=== PATIENT | female | born 1990 | race Caucasian/White ===

== ENCOUNTER → 2018-02-28 17:49 | Outpatient (CLI) | payer MEDICAID, SELFPAY ==
[2018-02-28 19:56] LABS: Chlamydia Trachomatis by PCR Negative (Negative); Neisserai gonorrhoeae by PCR Negative (Negative); Probe Check PASS; Sample Adequacy Control PASS; Specimen Processing Control PASS
[2018-03-08 08:17] LABS: HPV APTIMA, High Risk Negative (Negative); HPV Reflexed? YES, CHARGE PATIENT
== END ==
PROVIDERS: Visit Provider Obstetrics & Gynecology
DX: Z34.90 Encounter for supervision of normal pregnancy, unspecified, unspecified trimester (principal); Z12.4 Encounter for screening for malignant neoplasm of cervix
CPT/HCPCS: 87086; 87088; 87491; 87591; 87624; 88175; G0145

== ENCOUNTER → 2018-03-28 16:13 | Outpatient (CLI) | payer MEDICAID, SELFPAY ==
[2018-03-28 17:30] LABS: Absolute Lymphocyte Count 1.55 X10^3/ul (0.83-4.51); Absolute Neutrophil Count 6.4 X10^3/uL (2.0-7.7); Basophil# 0.04 X10^3/uL; Basophil% 0.4 % (0-1); Eosinophil# 0.47 X10^3/uL; Eosinophils% 5.2 % (0-5); Hematocrit 37.8 % (37-47); Hemoglobin 12.9 g/dl (12.0-15.0); Lymphocyte # 1.55 X10^3/ul (4.0); Lymphocyte % 17.2 % (19-41); Mean Corp Hgb Conc 34.1 g/gl (32-36); Mean Corpuscular Hgb 29.7 pg (27.0-32.0); Mean Corpuscular Volume 86.9 fL (81-99); Mean Platelet Vol. 11.8 fl (6.2-12.0); Monocyte% 5.5 % (0-10); Neutrophil # 6.41 X10^3/uL (2.7-7.7); Platelet Count 168 K/mm3 (150-450); RBC Distribution Width CV 13.2 % (11.6-14.6); RBC Distribution Width SD 40.7 fl (35.1-43.9); Red Blood Count 4.35 M/mm3 (4.2-5.4)
[2018-03-28 17:31] LABS: POSITIVE COUNT NO; POSITIVE DIFFERENTIAL NO; POSITIVE MORPHOLOGY NO
[2018-03-29 03:17] LABS: Rapid Plasmin Reagin (RPR) NONREACTIVE (NONREACTIVE)
[2018-03-29 08:57] LABS: HIV - WCH Non-Reactive (Nonreactive); Rubella IgG 232.1 IU/mL
[2018-04-01 12:19] LABS: HEPATITIS B SURFACE AG Negative (Negative)
== END ==
PROVIDERS: Family Provider Family Medicine; PCP Family Medicine; Visit Provider Obstetrics & Gynecology
DX: Z34.90 Encounter for supervision of normal pregnancy, unspecified, unspecified trimester (principal)
CPT/HCPCS: 36415; 85025; 86592; 86703; 86762; 86850; 86900; 87340

== ENCOUNTER → 2018-04-12 08:33 | Outpatient (CLI) | payer MEDICAID, SELFPAY ==
--- NOTE | 2018-04-12 08:37 | US_ITS ---
STUDY: SECOND AND THIRD TRIMESTER OBSTETRICAL ULTRASOUND REASON FOR EXAM: Female, 27 years old. Routine survey. LMP: November 30, 2017. TECHNIQUE: Transabdominal and Transvaginal PRIOR ULTRASOUND: None. FINDINGS: There is a single intrauterine fetus. The fetus is in a breech presentation. There is demonstrated cardiac activity with a heart rate of 143 bpm. There is a normal amniotic fluid volume. The amniotic fluid index (WILL) is within normal limits. The placenta is posterior and low lying but not previa in location. The distal portion of the placenta is 1.1 cm from the cervical os. There are Grade 0 placental changes. The cervix measures 3.3 cm in length. The bilateral adnexal regions are normal. BIOMETRY: BPD: 3.9 cm: 18 weeks, 0 days HC: 15.3 cm: 18 weeks, 3 days AC: 14.2 cm: 19 weeks, 4 days FL: 2.8 cm: 18 weeks, 5 days CI: 74% FL/BPD: 72% FL/HC: FL/AC: 20% HC/AC: 1.08 age by current US: 18 weeks, 5 days. DELMI by current US: September 08, 2018. Estimated weight: 270 grams, +/- 39 grams, 47 %. Age by LMP: 19 weeks, 0 days. DELMI by LMP: September 06, 2018. ANATOMY: Gender: Male Cranium: Normal lateral ventricles. Normal choroid plexus. Normal cerebellum. Normal cisterna magna. Normal face, nose and lips. Chest: Normal 4-chamber heart. Abdomen/Pelvis: Normal diaphragm. Normal stomach. Normal abdominal wall. Normal cord insertion. Normal 3 vessel cord. Normal kidneys. Normal bladder. Spine: Normal cervical spine. Normal thoracic spine. Normal lumbar spine. Normal sacrum. Extremities: Normal bilateral upper extremities. Normal bilateral lower extremities. US/OB Anatomy Scan IMPRESSION: Single live intrauterine gestation with a mean gestational age of 18 weeks and 5 days. There is a low-lying posterior placenta. The tip of the placenta is 1.1 cm proximal to the cervical os. Electronically Signed: Romeo Woods MD at 10:53 EDT Tel [phone], Service support ,
== END ==
PROVIDERS: Family Provider Family Medicine; PCP Family Medicine; Visit Provider Obstetrics & Gynecology
DX: Z34.90 Encounter for supervision of normal pregnancy, unspecified, unspecified trimester (principal)
CPT/HCPCS: 76805

== ENCOUNTER → 2018-05-03 18:06 | Outpatient (CLI) | payer MEDICAID, SELFPAY | PROVIDERS: Visit Provider Obstetrics & Gynecology | DX: M54.9 Dorsalgia, unspecified (principal) | CPT/HCPCS: 87086; 87088 ==

== ENCOUNTER → 2018-05-15 15:57 | Outpatient (CLI) | payer MEDICAID, SELFPAY | PROVIDERS: Family Provider Family Medicine; PCP Family Medicine; Visit Provider Obstetrics & Gynecology | DX: O44.42 Low lying placenta NOS or without hemorrhage, second trimester (principal); Z3A.23 23 weeks gestation of pregnancy | CPT/HCPCS: 76816 ==

== ENCOUNTER → 2018-05-31 12:46 | Outpatient (CLI) | payer MEDICAID, SELFPAY ==
[2018-05-31 13:45] LABS: Absolute Lymphocyte Count 1.31 X10^3/ul (0.83-4.51); Absolute Neutrophil Count 7.1 X10^3/uL (2.0-7.7); Basophil# 0.02 X10^3/uL; Basophil% 0.2 % (0-1); Eosinophil# 0.56 X10^3/uL; Eosinophils% 5.8 % (0-5); Hematocrit 34.4 % (37-47); Hemoglobin 11.3 g/dl (12.0-15.0); Lymphocyte # 1.31 X10^3/ul (4.0); Lymphocyte % 13.5 % (19-41); Mean Corp Hgb Conc 32.8 g/gl (32-36); Mean Corpuscular Hgb 29.8 pg (27.0-32.0); Mean Corpuscular Volume 90.8 fL (81-99); Monocyte% 6.2 % (0-10); Neutrophil # 7.11 X10^3/uL (2.7-7.7); Neutrophil % 73.4 % (47-70); POSITIVE COUNT NO; POSITIVE DIFFERENTIAL NO; POSITIVE MORPHOLOGY NO; Platelet Count 151 K/mm3 (150-450); RBC Distribution Width CV 13.9 % (11.6-14.6); RBC Distribution Width SD 45.9 fl (35.1-43.9); Red Blood Count 3.79 M/mm3 (4.2-5.4); White Blood Count 9.7 K/mm3 (4.4-11.0)
[2018-05-31 14:02] LABS: Glucose Challenge Gest 1H 50g 147 mg/dL (70-140)
== END ==
PROVIDERS: Family Provider Family Medicine; PCP Family Medicine; Visit Provider Obstetrics & Gynecology
DX: Z34.90 Encounter for supervision of normal pregnancy, unspecified, unspecified trimester (principal)
CPT/HCPCS: 36415; 82950; 85025

== ENCOUNTER → 2018-06-14 10:11 | Outpatient (CLI) | payer MEDICAID, SELFPAY ==
[2018-06-14 11:15] LABS: Glucose GTT-Gestation. Fasting 82 mg/dL (<105)
[2018-06-14 12:41] LABS: Glucose GTT-Gestational 1 Hr 189 mg/dL (<190)
[2018-06-14 12:58] LABS: Glucose GTT-Gestational 2 Hr 127 mg/dL (<165)
[2018-06-14 15:16] LABS: Glucose GTT-Gestational 3 Hr 115 L (<145)
== END ==
PROVIDERS: Family Provider Family Medicine; PCP Family Medicine; Referring Provider Obstetrics & Gynecology; Visit Provider Obstetrics & Gynecology
DX: R73.02 Impaired glucose tolerance (oral) (principal)
CPT/HCPCS: 36415; 82951; 82952

== ENCOUNTER → 2018-06-21 18:31 | Outpatient (CLI) | payer MEDICAID, SELFPAY | PROVIDERS: Family Provider Family Medicine; PCP Family Medicine; Referring Provider Obstetrics & Gynecology; Visit Provider Obstetrics & Gynecology | DX: N76.0 Acute vaginitis (principal) | CPT/HCPCS: 87070; 87077; 87106; 87186; 87205 ==

== ENCOUNTER → 2018-06-24 14:21 | Outpatient (CLI) | payer MEDICAID, SELFPAY ==
--- NOTE | 2018-06-24 14:23 | US_ITS ---
STUDY: SECOND AND THIRD TRIMESTER OBSTETRICAL ULTRASOUND - LIMITED REASON FOR EXAM: Female, 27 years old. Low-lying placenta. LMP: PRIOR ULTRASOUND: 05/15/2018. TECHNIQUE: Transabdominal and Transvaginal TECHNICAL QUALITY: Adequate. FINDINGS: There is a single intrauterine fetus. The fetus is in a cephalic presentation. There is demonstrated cardiac activity with a heart rate of 143 bpm. There is a normal amniotic fluid volume. The largest amniotic fluid pocket measures 3.7 cm. The amniotic fluid index (WILL) is 12.6 cm. The placenta is posterior in location and is not low lying. There are Grade 1 placental changes. The cervix measures 3.1 cm in length. BIOMETRY: BPD: 7.4: 29 weeks, 4 days HC: 27.4: 30 weeks, 0 days AC: 24.3: 28 weeks, 5 days FL: 5.5: 28 weeks, 6 days Age by LMP: 29 weeks, 3 days. DELMI by LMP: 09/06/2018 . age by prior US: 29 weeks, 1 days. DELMI by prior US: 09/08/2018. age by current US: 29 weeks, 2 days. DELMI by current US: 09/07/2018 Estimated weight: 1294 grams, +/- 189 grams, 19 percentile. Gender: US/OB Limited With Biometrics IMPRESSION: Single live fetus in a vertex presentation. survey not performed on this exam. Placenta is grade 1 and is not low-lying. Placenta is 2.7 cm from the internal os. Cervix is closed. age by current US: 29 weeks, 2 days. DELMI by current US: 09/07/2018 Estimated weight: 1294 grams, +/- 189 grams, 19 percentile. Electronically Signed: Omar Ordonez MD at 18:36 EDT , Service support ,
== END ==
PROVIDERS: Family Provider Family Medicine; PCP Family Medicine; Referring Provider Obstetrics & Gynecology; Visit Provider Obstetrics & Gynecology
DX: O44.42 Low lying placenta NOS or without hemorrhage, second trimester (principal)
CPT/HCPCS: 76816

== ENCOUNTER 2018-07-29 13:25 | Emergency (ER) | payer MEDICAID, SELFPAY ==
[2018-07-29 13:27] VITALS: BP 110/68; PULSE 104; RESP 18; TEMP 36.8; O2SAT 95; BMI 28.3
--- NOTE | 2018-07-29 13:57 | ED.DCSUM_ITS ---
- ER Visit Summary Date of Service: 07/29/18 Chief Complaint: Right knee pain History of Present Illness: The patient is a 27 F presenting for evaluation secondary to right knee pain. Patient reports that over the course of last 24 hours she has had an onset of redness over her right anterior knee. No injury associated with this. Patient states she has pain with palpation of the area. She denies any presence of fevers. Patient was seen at urgent care and was recommended to come to the emergency department for this. Patient denies any chest pain or shortness of breath. She is never had any prior similar episodes in the past. Physical Examination: Right lower extremity exam shows erythema over the patient's prepatellar bursa without significant evidence of skin violation. There is tenderness to palpation in this area. No pain with short arc range of motion of the knee, no evidence of diffuse joint effusion or warmth of the joint. Calf is supple no palpable cord, thigh is soft with no palpable cord. Remainder physical otherwise unremarkable. Emergency Department Course and Treatment: Patient presented secondary to redness of her knee. In urgent care had some concern for septic joint, I do not have concern for septic joint as this very clearly is prepatellar bursitis. Patient will be given an Amilcar wrap, will be placed on clindamycin, and will be given orthopedics with which to follow-up. She was given signs and symptoms for which to return. Disposition: Discharge Impression: 1. Right prepatellar bursitis This note was generated with swiftQueue dictation software. It may contain incorrect words, spelling, and punctuation that were not noted in review of the chart prior to signing ED Disposition - Plan for ED Patient: Disposition: Home or Assisted Living Chief Complaint: Lower Extremity Injury Diagnosis: Prepatellar bursitis of right knee Instructions: ED Bursitis Prescriptions: Clindamycin [Cleocin] 300 mg PO 4X/DAY #80 cap Referrals: Yifan García DO [STAFF PHYSICIAN] - 3-5 Days
== END 2018-07-29 14:09 | disposition home or self-care (01) ==
LOC: ED 14:08
PROVIDERS: Emergency Provider Emergency Medicine; Family Provider Family Medicine; PCP Family Medicine
DX: M70.41 Prepatellar bursitis, right knee (principal)
CPT/HCPCS: 99282

== ENCOUNTER → 2018-08-16 17:51 | Outpatient (CLI) | payer MEDICAID, SELFPAY ==
[2018-08-16 13:17] VITALS: BMI 28.3
== END ==
PROVIDERS: Family Provider Family Medicine; PCP Family Medicine; Referring Provider Obstetrics & Gynecology; Visit Provider Obstetrics & Gynecology
DX: Z34.83 Encounter for supervision of other normal pregnancy, third trimester (principal)
CPT/HCPCS: 87081

== ENCOUNTER → 2018-08-26 17:14 | Outpatient (CLI) | payer MEDICAID, SELFPAY ==
[2018-08-26 08:36] VITALS: BMI 28.3
--- OUTSIDE RECORDS SUMMARY | 2018-11-28 09:42 | XMS RPT_ITS ---
:1990 Author Organization OHIP Support Name Relationship Address Phone ADONIS OREILLY Unavailable [address] + [place] [address] [facility] Unavailable [address] + [place] [address] ADONIS OREILLY Unavailable [address] + [place] [address] [facility] Unavailable [address] + [place] [address] ADONIS OREILLY Unavailable [address] + [place] [address] [facility] Unavailable [address] + [place] [address] ADONIS OREILLY Unavailable [address] + [place] [address] [facility] Unavailable [address] + [place] [address] ADONIS OREILLY Unavailable [address] + [place] [address] [facility] Unavailable [address] + [place] [address] ADONIS OREILLY Unavailable [address] + [place] [address] [facility] Unavailable [address] + [place] [address] ADONIS OREILLY Unavailable [address] + [place] [address] [facility] Unavailable [address] + [place] [address] ADONIS OREILLY Unavailable [address] + [place] [address] [facility] Unavailable [address] + [place] [address] ADONIS OREILLY Unavailable [address] + [place] [address] [facility] Unavailable [address] + [place] [address] ADONIS OREILLY Unavailable [address] + [place] [address] [facility] Unavailable [address] + [place] [address] ADONIS OREILLY Unavailable [address] + [place] [address] [facility] Unavailable [address] + [place] [address] ADONIS OREILLY Unavailable [address] + [place] [address] [facility] Unavailable [address] + [place] [address] ADONIS OREILLY Unavailable [address] + [place] [address] [facility] Unavailable [address] + [place] [address] ADONIS OREILLY Unavailable [address] + [place] [address] [facility] Unavailable [address] + [place] [address] ADONIS OREILLY Unavailable [address] + [place] [address] [facility] Unavailable [address] + [place] [address] ADONIS OREILLY Unavailable [address] + [place] [address] [facility] Unavailable [address] + [place] [address] ADONIS OREILLY Unavailable [address] + [place] [address] [facility] Unavailable [address] + [place] [address] ADONIS OREILLY Unavailable [address] + [place] [address] [facility] Unavailable [address] + [place] [address] ADONIS OREILLY Unavailable [address] + [place] [address] [facility] Unavailable [address] + [place] [address] ADONIS OREILLY Unavailable [address] + [place] [address] [facility] Unavailable [address] + [place] [address] ADONIS OREILLY Unavailable [address] + [place] [address] [facility] Unavailable [address] + [place] [address] ADONIS OREILLY Unavailable [address] + [place] [address] [facility] Unavailable [address] + [place] [address] ADONIS OREILLY Unavailable [address] + [place] [address] [facility] Unavailable [address] + [place] [address] ADONIS OREILLY Unavailable [address] + [place] [address] [facility] Unavailable [address] + [place] [address] ADONIS OREILLY Unavailable [address] + [place] [address] [facility] Unavailable [address] + [place] [address] ADONIS OREILLY Unavailable [address] + [place] [address] [facility] Unavailable [address] + [place] [address] ADONIS OREILLY Unavailable [address] + [place] [address] [facility] Unavailable [address] + [place] [address] ADONIS OREILLY Unavailable [address] + [place] [address] [facility] Unavailable / + [place] [address] ADONIS OREILLY Unavailable [address] + [place] [address] [facility] Unavailable / + [place] [address] ADONIS OREILLY Unavailable [address] + [address] [place] [address] [facility] Unavailable Unavailable + [place] [address] [facility] Unavailable Unavailable + [place] [address] Care Team Providers Name Role Phone Opal Sheldon Attending Unavailable Karla, Enio Referring Unavailable MonalisaOpal Attending Unavailable Karla, Enio Referring Unavailable Monalisa, Molly Attending Unavailable LafeOpal Referring Unavailable Karla, Enio Primary Care Unavailable MarcanthonyClaire Attending Unavailable Karla, Enio Primary Care Unavailable MarcanthonyClaire Attending Unavailable Karla, Enio Referring Unavailable MarcanthonyClaire Admitting Unavailable Marcanthony, Claire Attending Unavailable Marcanthony, Claire Referring Unavailable Karla, Enio Primary Care Unavailable YunganthonyClaire Consulting Unavailable MarcanthonyClaire Attending Unavailable Harford, Cedric Referring Unavailable Harford, Cedric Primary Care Unavailable Marcanthony, Claire Attending Unavailable Marcanthony, Claire Referring Unavailable Primay Care Physicia, No Primary Care Unavailable MarcanthonyClaire Attending Unavailable Karla, Enio Referring Unavailable Primay Care Physicia, No Primary Care Unavailable MarcanthonyClaire Attending Unavailable Karla, Enio Primary Care Unavailable Marcanthony, Claire Attending Unavailable MarcanthonyClaire Referring Unavailable Karla, Enio Primary Care Unavailable Marcanthony, Claire Attending Unavailable Karla, Enio Referring Unavailable Karla, Enio Primary Care Unavailable Marcanthony, Claire Attending Unavailable Karla, Enio Referring Unavailable Karla, Enio Primary Care Unavailable MarcanthonyClaire Attending Unavailable MarcanthonyClaire Attending Unavailable MarcanthonyClaire Referring Unavailable MarcanthonyClaire Attending Unavailable MarcanthonyClaire Referring Unavailable Karla, Enio Primary Care Unavailable Joselin Robbins Attending Unavailable MarcanthonyClaire Attending Unavailable Karla, Enio Referring Unavailable Karla, Enio Primary Care Unavailable Marcanthony, Claire Attending Unavailable MarcanthonyClaire Referring Unavailable Karla, Enio Primary Care Unavailable Marcanthony, Claire Attending Unavailable Marcanthony, Claire Referring Unavailable Karla, Enio Primary Care Unavailable MarcanthonyClaire Attending Unavailable Karla, Enio Referring Unavailable Marcanthony, Claire Attending Unavailable Karla, Enio Primary Care Unavailable MarcanthonyClaire Referring Unavailable Marcanthony, Claire Attending Unavailable Marcanthony, Claire Referring Unavailable Karla, Enio Primary Care Unavailable Marcanthony, Claire Attending Unavailable Karla, Enio Referring Unavailable Marcanthony, Claire Attending Unavailable Karla, Enio Referring Unavailable Karla, Enio Primary Care Unavailable Yifan Amin Attending Unavailable Marcanthony, Claire Attending Unavailable Karla, Enio Referring Unavailable Marcanthony, Claire Admitting Unavailable Marcanthony, Claire Attending Unavailable Marcanthony, Claire Referring Unavailable Karla, Enio Primary Care Unavailable Marcanthony, Claire Attending Unavailable Karla, Enio Referring Unavailable Marcanthony, Claire Attending Unavailable Karla, Enio Primary Care Unavailable Marcanthony, Claire Referring Unavailable PROBLEMS PROBLEMS DATE TYPE CONDITION / CODE ATTENDING STATUS SOURCE 09/16/2018 Unknown O80 - Encounter for Melissa, Active [facility] full-term [facility] uncomplicated Hospital delivery / Repository O80(ICD-10) 09/16/2018 Unknown Z3A.39 - 39 weeks Marcanthony, Active [facility] gestation of [facility] / Hospital Z3A.39(ICD-10) Repository 09/16/2018 Unknown Z37.0 - Single live Marcanthony, Active [facility] / [facility] Z37.0(ICD-10) Hospital Repository 08/26/2018 Unknown O23.43 - Opal Sheldon Active [facility] Unspecified Community infection of Hospital urinary tract in Repository , third trimester / O23.43(ICD-10) 08/23/2018 Unknown Z34.83 - Encounter Opal Sheldon Active [facility] for supervision of Community other normal Hospital , third Repository trimester / Z34.83(ICD-10) 08/23/2018 Unknown Z3A.38 - 38 weeks Opal Sheldon Active [facility] gestation of [facility] / Hospital Z3A.38(ICD-10) Repository 08/16/2018 Unknown R73.09 - Other Marcanthony, Active [facility] abnormal glucose / [facility] R73.09(ICD-10) Hospital Repository 08/16/2018 Unknown Z3A.37 - 37 weeks Marcanthony, Active [place] gestation of [facility] / Hospital Z3A.37(ICD-10) Repository 07/31/2018 Unknown Z3A.34 - 34 weeks Marcanthony, Active [facility] gestation of [facility] / Hospital Z3A.34(ICD-10) Repository 07/03/2018 Unknown Z34.82 - Encounter Marcgama, Active [facility] for supervision of [facility] other normal Hospital , second Repository trimester / Z34.82(ICD-10) 07/03/2018 Unknown R73.02 - Impaired Marcanthony, Active [facility] glucose tolerance [facility] (oral) / Hospital R73.02(ICD-10) Repository 07/03/2018 Unknown Z23 - Encounter for Marcanthony, Active [facility] immunization / [facility] Z23(ICD-10) Hospital Repository 07/03/2018 Unknown Z3A.30 - 30 weeks Marcanthony, Active [place] gestation of [facility] / Hospital Z3A.30(ICD-10) Repository 06/22/2018 Unknown N76.0 - Acute Marcanthony, Active [facility] vaginitis / [facility] N76.0(ICD-10) Hospital Repository 05/24/2018 Unknown O44.42 - Low lying Marcanthony, Active [facility] placenta NOS or [facility] without hemorrhage, Hospital second trimester / Repository O44.42(ICD-10) 05/24/2018 Unknown Z3A.25 - 25 weeks Marcanthony, Active [facility] gestation of [facility] / Hospital Z3A.25(ICD-10) Repository 05/24/2018 Unknown R31.0 - Gross Marcanthony, Active [facility] hematuria / [facility] R31.0(ICD-10) Hospital Repository 05/06/2018 Unknown M54.9 - Dorsalgia, Marcanthony, Active [facility] unspecified / [facility] M54.9(ICD-10) Hospital Repository 04/24/2018 Unknown Z34.90 - Encounter Marcanthprachi, Active [facility] for supervision of [facility] normal , Hospital unspecified, Repository unspecified trimester / Z34.90(ICD-10) PROCEDURES PROCEDURES No Procedure Records FoundRESULTS RESULTS 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 [address] [place] [address] OFFICE VISIT Date of Service: 08/30/18 MR#: [id number] Acct: [id number] Name: NORALLUVIA MARX Rep #: [id number] : 1990 Provider: Claire Torres MD Age/Sex: 28/F Location: 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 Required: No Is patient in pain?: No Allergies latex Adverse Reaction (Verified 08/30/18 17:19) Rash Medications vitamin,calcium,xxoptbbx-mwiy-iuqih acid tablet 1 tab PO QDAY 02/28/18 [History Confirmed 08/30/18] Nitrofurantoin Macrocrystals [Macrobid] 100 mg PO BID 08/28/18 [History Confirmed 08/30/18] Last Menstral Period: 11/30/17 Zika: Zika virus screening: Negative : No PFSH PFSH Social History Smoking Status: Never smoker alcohol intake: never substance use type: does not use caffeine: Yes what type of physical activity do you participate in: walking seatbelt use: always do you feel safe at home: Yes additional social history: Solitario De Guzman 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 DatName [place]/WeeksOutcome [facility] LocaProviderFOB e ht en ia tn Unknown 2016 Leo40 live birNSVD 8lbs 2 oMale Kennedy n - ful unces l term HPI 39 WEEK OB: Details: LLUVIA OREILLY is a 28 year old who presents for routine OB visit. OB Visit DELMI Calculator Estimated Delivery Date 09/06/18 Based on LMP (certain) 11/30/17 Current WG 39w 1d Number 1 Expected Delivery Route/Plan Specific Issue/Plans flu vaccine: get next visit. tdap vaccine: get next visit LARC form signed: labor support person: rosalia Lamb pain management: minimal intervention cut cord/dad catch: none this time : yes PP control planned: pill special requests: Initial Weight: 129 lb Date Weight BP Urine PrFHR FuHt Pres MoCTX DilationFetal StVisit NoProviderComments E ot v te GA G Effac lucose ed Visit Notes Visit Date: 08/30/18 no vb lof good fm no regualr ctx membranes swept Claire Torres MD on 08/31/18 Visit Date: 08/26/18 dysuria. Irreg CTX. Good Fm. Noting blood in urine. Opal Sheldon NP-C on 08/26/18 Visit Date: 08/23/18 Rare CTX. NO VB, LOF. Good fm LUIS E JerezC on 08/23/18 Visit Date: 08/16/18 no vb lof good fm no regualr ctdx Claire Torres MD on 08/16/18 Visit Date: 07/31/18 no vb lof good fm no regula rctx Claire Torres MD on 07/31/18 Visit Date: 07/17/18 no vb lof good fm no regular ctx Claire Torres MD on 07/17/18 Visit Date: 07/03/18 no vb lof good fm no regular ctx Claire Torres MD on 07/03/18 Visit Date: 06/21/18 vaginal irritation- looks like yeast, recommend monistat 7. swabs sent Claire Torres MD on 06/21/18 Visit Date: 05/24/18 no vb lof good fm no regualr ctx Claire Torres MD on 05/24/18 Visit Date: 05/17/18 No visit notes to display Visit Date: 04/24/18 no vb cramping having some round ligament pain Claire Torres MD on 04/24/18 Visit Date: 03/28/18 no vb cramping Claire Torres MD on 03/28/18 Visit Date: 02/28/18 No visit notes to display ACOG First Trimester First Trimester: Desire for , Alcohol, Tobacco Cessation, Illicit/Recreational Drug/Substance Use, Intimate Partner Violence, Barriers to care, Unstable Housing, Communication Barriers, Environmental/Work Hazards, Anticipated Course of Care, Toxoplasmosis Precations, Use of Any medications, Sexual activity, Exercise, Dental Care, Sauna/Hot tub use, Seat Belt use, Childbirth classes/Hospital facilities, , Travel, Indications for US and Screening for Aneuploidy Diagnostics Diagnostics Labs Blood Type O POSITIVE 08/30/18 Antibody Screen NEGATIVE 08/30/18 Hct 38.4 % (37-47) 08/30/18 Hgb 12.8 g/dl (12.0-15.0) 08/30/18 Obstetrics Ultrasound 06/24/18 Details: HIV: Urine Culture: Sequential Screen: NIPT Screen: ROS Const Denies fever(s) GI Denies abdominal pain, Reports as per HPI Denies vaginal discharge, Denies abnormal vaginal bleeding, Reports as per HPI Exam Const General: healthy appearing, comfortable, no acute distress GI Inspection: normal to inspection Palpation: soft, nontender Assessment AND Plan Problems 1. Elevated glucose tolerance test R73.09 1 elevated value in 3 hr GTT 2. 38 weeks gestation of Z34.90 genetic, carrier, ntd screening declined. anatomy scan normal. 3. Encounter for supervision of other normal in third trimester Z34.90 PRR DELMI 09/06/18 boy - [facility] Lauro Adonis Plan movement and labor precautions reviewed. ACOG trimester education reviewed and updated. see problem list details for updated plan management information and see below for orders placed at this visit. GA appropriate handout given. Orders Orders: Coding Level of Care Code Off vis,est,level 3 Diagnoses Elevated glucose tolerance test R73.09 38 weeks gestation of Z34.90 Encounter for supervision of other normal in third trimester Z34.90 08/31/18 0430 <Electronically signed by Claire Torres MD> Date Claire Torres MD Cosigner Signature: Date (if applicable) CC: DISCHARGE INSTRUCTION Observed: 08/31/2018 Status: F Source: [facility] 2:10 AM [facility] REPOSITORY [facility] Medical Records Department [address] [place] [address] Instructions for Home/Discharge Instructions 08/31/18 0209 MR#: [id number] Acct: [id number] Name: LLUVIA OREILLY Rep #: [id number] : 1990 28 From: Claire Torres MD PCP: Enio Acosta MD Status: ADM IN Discharge Diet: No Restrictions Discharge Activity: Return to Normal Activity, May not drive while taking narcotic pain medications., May Shower May resume sexual activity in: 4-6 weeks Call your doctor if your incision/area has: Continuous Slow Oozing, Sudden Increased Bleeding, Increased Pain/ Swelling, Increased Redness, Foul Smelling Discharge Additional Instructions: If you experience any of the following, contact your healthcare provider. * Bleeding that soaks a pad every hour for 2 hours * Fever 100.4 or higher * Unrelieved incision or abdominal pain * Swelling, redness, discharge or bleeding from your incision or episiotomy site * Your incision begins to separate * Problems urinating (including inability to urinate or burning while urinating). * Visual changes * Severe headache * Flu-like symptoms * Pain or redness in one of both of your breasts * Pain, warmth, tenderness or swelling in your legs, especially the calf area * Frequent nausea and vomiting * Symptoms of depression or anxiety If you experience any of the following, call 911 or go to the nearest Emergency Room. * Chest pain * Problems breathing * Seizure activity * Partial or complete paralysis of a body part, slurred speech, weakness or drooping of the face, or a sudden inability to walk or hold your balance Allergies/Adverse Reactions: Allergies latex Adverse Reaction (Verified 08/30/18 17:19) Rash Medications to take at Discharge vitamin,calcium,koezqvsb-mmqc-mojep acid tablet 1 tab PO QDAY 02/28/18 Nitrofurantoin Macrocrystals [Macrobid] 100 mg PO BID 08/28/18 Please Follow Up With: Claire Torres MD - [phone] When: Call to make an appointment with your doctor in 6 weeks. If you had elevated Blood pressure or 4th degree laceration you will need to be seen in 2 weeks. Primary Care Physician: Enio Acosta MD [Primary Care Provider] - Test Results: Test results from this visit will be discussed in further detail at your follow-up appointment, if applicable. 08/31/18 0210 <Electronically signed by Claire Torres MD> Date Claire Torres MD CC: Enio Acosta MD Signed OPERATIVE REPORT Observed: 08/31/2018 Status: F Source: [place] 2:08 AM [facility] REPOSITORY [facility] Medical Records Department [address] [place] [address] Operative Report 08/31/18 0207 MR#: [id number] Acct: [id number] Name: LLUVIA OREILLY Rep #: [id number] : 1990 From: Claire Torres MD PCP: Enio Acosta MD Status: ADM IN Y [id number] Problem List (1) Active labor at term Status: Acute (2) Elevated glucose tolerance test Status: Acute Comment: 1 elevated value in 3 hr GTT (3) Status: Acute Qualifiers: Comment: genetic, carrier, ntd screening declined. anatomy scan normal. (4) Supervision of normal Status: Acute Qualifiers: Comment: PRR DELMI 09/06/18 boy - [facility] Lauro Adonis Vaginal Delivery Maternal Presentation: Active Labor 28-year-old at 39 weeks presents in active labor 7 8 cm Amniotic Membrane Rupture Type: Artificial Amniotic Fluid Description: Clear Final DELMI: 09/06/18 Gestational age: 39 Weeks and 1 Days Date of Procedure: 08/30/18 Pre-Operative Diagnosis: In active labor Post-Operative Diagnosis: Same Surgery/ Procedure Performed: Spontaneous Vaginal Delivery Type of Anesthesia: None Description of Procedure: Patient began pushing and delivered the head in the JANETH presentation. The head was delivered atraumatically. The anterior and posterior shoulders delivered without complication followed by the rest of the and the infant was placed on the maternal abdomen. Delayed cord clamping was employed for approximately 60 seconds. Cord was clamped and cut and gentle traction was applied to the cord and the placenta delivered spontaneously immediately following it was noted to be intact with three-vessel cord. The perineum and vagina were inspected and noted to have no laceration. EBL was 100 cc. Patient and infant tolerated delivery well. Presentation: JANETH Placental Delivery Description: Spontaneous Placenta Disposition: [facility] Cord Vessel Description: 3 Vessels Cord Entanglement: None Estimated Blood Loss: 100 A gender: Male Episiotomy Description: None Laceration: None Medications given after delivery: IV Pitocin Complications: None 08/31/188 <Electronically signed by Claire Torres MD> Date Claire Torres MD CC: Enio Acosta MD; Claire Torres MD Signed HISTORY AND PHYSICAL Observed: 08/31/2018 Status: F Source: [place] EXAM 2:06 AM [facility] REPOSITORY [facility] Medical Records Department [address] [place] [address] History and Physical 08/31/18202 MR#: [id number] Acct: [id number] Name: LLUVIA OREILLY Rep #: [id number] : 1990 28 From: Claire Torres MD PCP: Enio Acosta MD Status: ADM IN Y Location: [id number] - Problem List (1) Active labor at term Status: Acute (2) Elevated glucose tolerance test Status: Acute Comment: 1 elevated value in 3 hr GTT (3) Status: Acute Qualifiers: Comment: genetic, carrier, ntd screening declined. anatomy scan normal. (4) Supervision of normal Status: Acute Qualifiers: Comment: PRR DELMI 09/06/18 boy - [facility] Lauro Adonis History Date of Admission: 08/30/18 Final DELMI: 09/06/18 Final DELMI Source: LMP Gestational age: 39 Weeks and 1 Days History of this : This is a 28 year-old, at 39 weeks gestational age presents in active labor at 7 8 cm. Patient has had an unconjugated and had her membranes swept today in the office. She admits some vaginal bleeding but denies any loss of fluid and admits good movement. Contractions are every 2-3 minutes. Allergies latex Adverse Reaction (Verified 08/30/18 17:19) Rash Home Medications: Home Medications vitamin,calcium,epjcruvc-lkrl-dqytm acid tablet 1 tab PO QDAY 02/28/18 Nitrofurantoin Macrocrystals [Macrobid] 100 mg PO BID 08/28/18 Smoking Status: Never smoker Alcohol: None Number of Fetus(es): 1 Heart Tracins moderate variability reactive no decelerations category 1 tracing TOCO Analysis: 2-3 minutes History Past Pregnancies: Past Pregnancies previous term vaginal delivery uncomplicated Labs: Mom's Labs AND Results WBC 11.9 H RBC 4.35 Course Did the patient receive Yes care? Labs Blood Type: O Current Obstetrical History Gestational Diabetes No Incompetent Cervix No Infertility No IUGR No Macrosomia No Hypertension/Pre-eclampsia No Placenta Previa/Abruption No PTL/PROM No Uterine anomaly No Oligohydramnios No Polyhydramnios No Multiple gestation No Past Medical History Asthma No Diabetes No Hypertension No Heart disease No Mitral valve prolapse No Neurologic/Seizure disorder/ No Migraines Kidney disease No Liver disease No Varicosities No Clotting disorders/Hx of DVT No Thyroid Dysfunction No Other medical diseases No Psychiatric disorders No Major trauma No Abnormal PAP smear No Sleep apnea No Mammogram in the last 2 years No Social History Marital Status: Alleged father Adonis Oreilly Hx Smoking No Smoking Status Never smoker How long have you used n/a substances (years)? What date/time did you last n/a use any of the above? Have you had any previous n/a inpatient or outpatient treatment Expected Infant Delivery Method: Spontaneous Vaginal Review of Systems Constitutional: Denies: Fever, Malaise Eyes: Denies: Blurred vision, Vision Change HEENT: Denies: Head Aches, Visual Changes Cardiovascular: Denies: Chest Pain, Palpitations Respiratory: Denies: Cough, Shortness of Breath, Wheezing Gastrointestinal: Reports: Abdominal Pain, Nausea. Denies: Diarrhea, Vomiting Genitourinary: Denies: Dysuria, Hematuria Gynecological: Reports: Vaginal bleeding Musculoskeletal: Denies: Joint Pain, Muscle pain Skin: Denies: Lesions, Rash Neurological: Denies: Blurred vision, Focal weakness, Headaches Psychiatric: Denies: Anxiety, Depression Endocrine: Denies: Heat/ Cold Intolerance Hematologic/ Lymphatic: Denies: Easy Bruising, Easy Bleeding Physical Exam Vitals: Vital Signs Temp Pulse Resp BP 98.1 F 76 18 120/53 L 08/30/18 23:40 08/30/18 23:40 08/30/18 23:40 08/30/18 23:40 General: Alert, Cooperative, No apparent distress HEENT: Atraumatic, Normocephalic. Negative for: Thyromegaly, Lymphadenopathy Cardiovascular: Regular rate Lungs: Normal air movement Abdomen: Soft, Non Tender, Gravid Neurological: Deep Tendon Reflexes 2+/4 and Symmetrical, Neuro grossly intact. Negative for: Clonus SKIN CARVER: Normal external genitalia. Negative for: Vulvar lesions Estimated gestational size: Appropriate for gestational size Presentation: Cephalic Assessment/Plan All Active Problems (Last Reviewed 08/30/18 @ 14:06 by Joselin Robbins) Active labor at term (Acute) Elevated glucose tolerance test (Acute) (Acute) Supervision of normal (Acute) Low lying placenta nos or without hemorrhage, second trimester (Resolved) This is a 28 year-old, at 39 weeks gestational age resents in active labor. Patient presented in active labor and proceeded to deliver precipitously after IV was in place and artificial rupture membranes was clear. 08/31/18 0206 <Electronically signed by Claire Torres MD> Date Claire Torres MD Cosigner Signature: Date (if applicable) CC: Enio Acosta MD; Claire Torres MD Signed CBC-COMPLETE BLOOD CNT Collected: 2018 Status: F Source: [place] NO DIFF 5:20 PM [facility] REPOSITORY TYPE CODE TESTS RESULT OUT OF RANGE REFERENCE UNITS LAB L100.1000 4.4-11.0 K/mm3 High WBC 11.9 LAB L100.1200 4.2-5.4 M/mm3 Normal RBC 4.35 LAB L100.1300 12.0-15.0 g/dl Normal HGB 12.8 LAB L100.1400 37-47 % Normal HCT 38.4 LAB L100.1500 81-99 fL Normal MCV 88.3 LAB L100.1600 27.0-32.0 pg Normal MCH 29.4 LAB L100.1700 32-36 g/gl Normal MCHC 33.3 LAB L100.1810 11.6-14.6 % Normal RDW CV 13.5 LAB L100.1820 35.1-43.9 fl High RDW SD 44.0 LAB L100.1900 150-450 K/mm3 Normal PLT 162 LAB L100.2000 6.2-12.0 fl Normal MPV 11.6 Performed By: #### L100.0500 #### [facility] [address] [place], [address] TYPE AND SCREEN Collected: 2018 Status: F Source: [place] 5:20 PM [facility] REPOSITORY Order Comment: Reason for Type AND Screen/Red Cells: ROUTINE TYPE CODE TESTS RESULT OUT OF RANGE REFERENCE UNITS LAB B10.0800 O Normal BLOOD TYPE GEL POSITIVE LAB B100.4000 Normal Antibody NEGATIVE Screen Performed By: #### B101.7450 #### [facility] [address] [place], [place], [address] Observed: 08/26/2018 Status: F Source: [place] CULTURE, URINE 6:29 PM [facility] REPOSITORY Urine Culture ORGANISM 1: Mixed Gram Positive Organisms Breese Count 1000-10,000 MIX CULTURE Mixed contaminants. Submit a new specimen if indicated. Performed By: #### M100.0650 #### [facility] [address] [place], [address] [employer]LOOM WEAVER OFFICE VISIT Observed: 08/26/2018 Status: F Source: [place] REPORT 8:40 AM [facility] REPOSITORY [facility] [address] [place], [place] [address] OFFICE VISIT Date of Service: 08/26/18 MR#: [id number] Acct: [id number] Name: LLUVIA OREILLY Rep #: [id number] : 1990 Provider: FLACO Sheldon Age/Sex: 27/F Location: [facility] Status: Signed Intake Vital Signs08/26/18 Body Mass Index (BMI) 28.3 08/26/18 Height 5 ft 1 in 08/26/18 Weight: 154 lb 08/26/18 Body Mass Index (BMI) 29.0 08/26/18 Blood Pressure 120/82 H Intake Visit Reasons: urine Allergies latex Adverse Reaction (Verified 08/23/18 11:17) Rash Medications vitamin,calcium,sbnfmzkf-rdjf-mexuv acid tablet 1 tab PO QDAY 02/28/18 [History Confirmed 08/23/18] Last Menstral Period: 11/30/17 PFSH PFS Social History Smoking Status: Never smoker alcohol intake: never substance use type: does not use caffeine: Yes what type of physical activity do you participate in: walking seatbelt use: always do you feel safe at home: Yes additional social history: Solitario De Guzman 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 DatName GA/WeeksOutcome [facility] LocaProviderFOB e ht en ia tn Unknown 2015 Leo40 live birNSVD 8lbs 2 oMale [place] n th - ful unces l term HPI urine: Details: LLUVIA OREILLY is a 27 year old who presents for routine OB visit. OB Visit DELMI Calculator Estimated Delivery Date 09/06/18 Based on LMP (certain) 11/30/17 Current WG 38w 3d Number 1 Expected Delivery Route/Plan Specific Issue/Plans flu vaccine: get next visit. tdap vaccine: get next visit LARC form signed: labor support person: rosalia Lamb pain management: minimal intervention cut cord/dad catch: none this time : yes PP control planned: pill special requests: Initial Weight: 129 lb Date Weight BP Urine PrFHR FuHt Pres MoCTX DilationFetal StVisit NoProviderComments E ot v te [place] G Effac lucose ed Visit Notes Visit Date: 08/26/18 dysuria. Irreg CTX. Good Fm. Noting blood in urine. AMAN Jerez on 08/26/18 Visit Date: 08/23/18 Rare CTX. NO VB, LOF. Good fm AMAN Jerez on 08/23/18 Visit Date: 08/16/18 no vb lof good fm no regualr ctdx Claire Torres MD on 08/16/18 Visit Date: 07/31/18 no vb lof good fm no regula rctx Claire Torres MD on 07/31/18 Visit Date: 07/17/18 no vb lof good fm no regular ctx Claire Torres MD on 07/17/18 Visit Date: 07/03/18 no vb lof good fm no regular ctx Claire Torres MD on 07/03/18 Visit Date: 06/21/18 vaginal irritation- looks like yeast, recommend monistat 7. swabs sent Claire Torres MD on 06/21/18 Visit Date: 05/24/18 no vb lof good fm no regualr ctx Claire Torres MD on 05/24/18 Visit Date: 05/17/18 No visit notes to display Visit Date: 04/24/18 no vb cramping having some round ligament pain Claire Torres MD on 04/24/18 Visit Date: 03/28/18 no vb cramping Claire Torres MD on 03/28/18 Visit Date: 02/28/18 No visit notes to display ACOG First Trimester First Trimester: Desire for , Alcohol, Tobacco Cessation, Illicit/Recreational Drug/Substance Use, Intimate Partner Violence, Barriers to care, Unstable Housing, Communication Barriers, Environmental/Work Hazards, Anticipated Course of Care, Toxoplasmosis Precations, Use of Any medications, Sexual activity, Exercise, Dental Care, Sauna/Hot tub use, Seat Belt use, Childbirth classes/Hospital facilities, , Travel, Indications for US and Screening for Aneuploidy Diagnostics Diagnostics Labs Hct 34.4 % (37-47) L 05/31/18 Hgb 11.3 g/dl (12.0-15.0) L 05/31/18 Obstetrics Ultrasound 06/24/18 Glucose 1 Hr 50 gm 147 mg/dL (70-140) H 05/31/18 Details: HIV: Urine Culture: Sequential Screen: NIPT Screen: ROS Const Reports system reviewed and no additional complaints, except as docu GI Denies nausea, Denies vomiting, Denies abdominal pain Exam Const General: cooperative Nutritional Appearance: well nourished GI Palpation: soft, nontender, other (gravid) Assessment AND Plan Problems 1. Encounter for supervision of other normal in third trimester Z34.83 PRR DELMI 09/06/18 boy - Pranav Restrepo Adonis 2. 38 weeks gestation of Z3A.38 genetic, carrier, ntd screening declined. anatomy scan normal. 3. Elevated glucose tolerance test R73.09 1 elevated value in 3 hr GTT 4. Urinary tract infection in mother during third trimester of O23.43 Plan Orders placed: Rx macrobid. Urine culture pending. Reviewed of labor precautions, movement/kick counts ACOG trimester education reviewed and updated See problem list details for updated plan of care Gestational age appropriate handout given RTO: 4 days Coding Level of Care Code Off vis,est,level 3 Diagnoses Encounter for supervision of other normal in third trimester Z34.83 Normal : other normal Trimester: third trimester 38 weeks gestation of Z3A.38 Weeks of gestation: 38 weeks Elevated glucose tolerance test R73.09 Urinary tract infection in mother during third trimester of O23.43 Trimester: third trimester 08/26/18 0840 <Electronically signed by Opal NEWTON> Date Opal NEWTON Cosigner Signature: Date (if applicable) CC: [employer]ER OFFICE VISIT Observed: 08/23/2018 Status: F Source: [place] REPORT 11:28 AM [facility] REPOSITORY [facility] [address] [place] [address] OFFICE VISIT Date of Service: 08/23/18 MR#: [id number] Acct: [id number] Name: LLUVIA OREILLY Rep #: [id number] : 1990 Provider: FLACO Sheldon Age/Sex: 27/F Location: [facility] Status: Signed Intake Vital Signs08/23/18 Body Mass Index (BMI) 28.3 08/23/18 Height 5 ft 1 in 08/23/18 Weight: 152 lb 08/23/18 Body Mass Index (BMI) 28.7 08/23/18 Blood Pressure 100/60 Intake Visit Reasons: 38 WEEK OB Chief Complaint: est ob Casting Supervisor Required: No Is patient in pain?: No Allergies latex Adverse Reaction (Verified 08/23/18 11:17) Rash Medications vitamin,calcium,dynnbugj-urmr-lirrv acid tablet 1 tab PO QDAY 02/28/18 [History Confirmed 08/23/18] Last Menstral Period: 11/30/17 Zika: Zika virus screening: Negative : No PFSH PFSH Social History Smoking Status: Never smoker alcohol intake: never substance use type: does not use caffeine: Yes what type of physical activity do you participate in: walking seatbelt use: always do you feel safe at home: Yes additional social history: Solitario De Guzman 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 DatName GA/WeeksOutcome Route [facility] LgAnesthesDel LocaProviderFOB e ht en ia tn Unknown 2016 Leo40 live birNSVD 8lbs 2 oMale [place] n - ful unces l term HPI 38 WEEK OB: Details: LLUVIA OREILLY is a 27 year old who presents for routine OB visit. OB Visit DELMI Calculator Estimated Delivery Date 09/06/18 Based on LMP (certain) 11/30/17 Current WG 38w 0d Number 1 Expected Delivery Route/Plan Specific Issue/Plans flu vaccine: get next visit. tdap vaccine: get next visit LARC form signed: labor support person: rosalia Lamb pain management: minimal intervention cut cord/dad catch: none this time : yes PP control planned: pill special requests: Initial Weight: 129 lb Date Weight BP Urine PrFHR FuHt Pres MoCTX DilationFetal StVisit NoProviderComments E ot v te [place] G Effac lucose ed Visit Notes Visit Date: 08/23/18 Rare CTX. NO VB, LOF. Good fm AMAN Jerez on 08/23/18 Visit Date: 08/16/18 no vb lof good fm no regualr ctdx Claire Torres MD on 08/16/18 Visit Date: 07/31/18 no vb lof good fm no regula rctx Claire Torres MD on 07/31/18 Visit Date: 07/17/18 no vb lof good fm no regular ctx Claire Torres MD on 07/17/18 Visit Date: 07/03/18 no vb lof good fm no regular ctx Claire Torres MD on 07/03/18 Visit Date: 06/21/18 vaginal irritation- looks like yeast, recommend monistat 7. swabs sent Claire Torres MD on 06/21/18 Visit Date: 05/24/18 no vb lof good fm no regualr ctx Claire Torres MD on 05/24/18 Visit Date: 05/17/18 No visit notes to display Visit Date: 04/24/18 no vb cramping having some round ligament pain Claire Torres MD on 04/24/18 Visit Date: 03/28/18 no vb cramping Claire Torres MD on 03/28/18 Visit Date: 02/28/18 No visit notes to display ACOG First Trimester First Trimester: Desire for , Alcohol, Tobacco Cessation, Illicit/Recreational Drug/Substance Use, Intimate Partner Violence, Barriers to care, Unstable Housing, Communication Barriers, Environmental/Work Hazards, Anticipated Course of Care, Toxoplasmosis Precations, Use of Any medications, Sexual activity, Exercise, Dental Care, Sauna/Hot tub use, Seat Belt use, Childbirth classes/Hospital facilities, , Travel, Indications for US and Screening for Aneuploidy Diagnostics Diagnostics Labs Hct 34.4 % (37-47) L 05/31/18 Hgb 11.3 g/dl (12.0-15.0) L 05/31/18 Obstetrics Ultrasound 06/24/18 Glucose 1 Hr 50 gm 147 mg/dL (70-140) H 05/31/18 Details: HIV: Urine Culture: Sequential Screen: NIPT Screen: ROS Const Reports system reviewed and no additional complaints, except as docu GI Denies nausea, Denies vomiting, Denies abdominal pain Exam Const General: cooperative Nutritional Appearance: well nourished GI Palpation: soft, nontender, other (gravid) Results [id number] Office Urine Glucose Negative Last Edit by Vernell Chino on 08/23/18 11:22 Office Urine Protein Negative Last Edit by Vernell Chino on 08/23/18 11:22 Assessment AND Plan Problems 1. Encounter for supervision of other normal in third trimester Z34.83 PRR DELMI 09/06/18 boy - Pranav PC Lauro Adonis 2. 38 weeks gestation of Z3A.38 genetic, carrier, ntd screening declined. anatomy scan normal. Plan Orders placed: none Reviewed of labor precautions, movement/kick counts ACOG trimester education reviewed and updated See problem list details for updated plan of care Gestational age appropriate handout given RTO: 1 week Orders Orders: Coding Level of Care Code Off vis,est,level 3 Diagnoses Encounter for supervision of other normal in third trimester Z34.83 Normal : other normal Trimester: third trimester 38 weeks gestation of Z3A.38 Weeks of gestation: 38 weeks 08/23/18 1128 <Electronically signed by Opal NEWTON> Date Opal NEWTON Cosigner Signature: Date (if applicable) CC: [employer] WEAVER OFFICE VISIT Observed: 08/16/2018 Status: F Source: [place] REPORT 1:29 PM [facility] REPOSITORY [facility] [address] [place] [address]. [address] [place], [place] [address] OFFICE VISIT Date of Service: 08/16/18 MR#: [id number] Acct: [id number] Name: LLUVIA OREILLY Rep #: [id number] : 1990 Provider: Claire Torres MD Age/Sex: 27/F Location: [facility] Status: Signed Intake Vital Signs08/16/18 Body Mass Index (BMI) 28.3 08/16/18 Height 5 ft 1 in 08/16/18 Weight: 154 lb 08/16/18 Body Mass Index (BMI) 29.0 08/16/18 Blood Pressure 112/60 Intake Visit Reasons: 37 WEEKS Chief Complaint: est ob Casting Supervisor Required: No Is patient in pain?: No Allergies latex Adverse Reaction (Verified 08/16/18 13:14) Rash Medications vitamin,calcium,mxvgplnq-uxfq-eizmx acid tablet 1 tab PO QDAY 02/28/18 [History Confirmed 07/29/18] Last Menstral Period: 11/30/17 Zika: Zika virus screening: Negative : No PFSH PFSH Social History Smoking Status: Never smoker alcohol intake: never substance use type: does not use caffeine: Yes what type of physical activity do you participate in: walking seatbelt use: always do you feel safe at home: Yes additional social history: Solitario De Guzman 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 DatName GA/WeeksOutcome Route [facility] LocaProviderFOB e ht en ia tn Unknown 2015 Leo40 live birNSVD 8lbs 2 oMale [place] n th - ful unces l term HPI 37 WEEKS: Details: LLUVIA OREILLY is a 27 year old who presents for routine OB visit. URINE 2 DIP NEGATIVE GLUCOSE NEGATIVE PROTEIN OB Visit DELMI Calculator Estimated Delivery Date 09/06/18 Based on LMP (certain) 11/30/17 Current WG 37w 0d Number 1 Expected Delivery Route/Plan Specific Issue/Plans flu vaccine: get next visit. tdap vaccine: get next visit LARC form signed: labor support person: rosalia Lamb pain management: minimal intervention cut cord/dad catch: none this time : yes PP control planned: pill special requests: Initial Weight: 129 lb Date Weight BP Urine PrFHR FuHt Pres MoCTX DilationFetal StVisit NoProviderComments E ot v te [place] G Effac lucose ed Visit Notes Visit Date: 08/16/18 no vb lof good fm no regualr ctdx Claire Torres MD on 08/16/18 Visit Date: 07/31/18 no vb lof good fm no regula rctx Claire Torres MD on 07/31/18 Visit Date: 07/17/18 no vb lof good fm no regular ctx Claire Torres MD on 07/17/18 Visit Date: 07/03/18 no vb lof good fm no regular ctx Claire Torres MD on 07/03/18 Visit Date: 06/21/18 vaginal irritation- looks like yeast, recommend monistat 7. swabs sent Claire Torres MD on 06/21/18 Visit Date: 05/24/18 no vb lof good fm no regualr ctx Claire Torres MD on 05/24/18 Visit Date: 05/17/18 No visit notes to display Visit Date: 04/24/18 no vb cramping having some round ligament pain Claire Torres MD on 04/24/18 Visit Date: 03/28/18 no vb cramping Claire Torres MD on 03/28/18 Visit Date: 02/28/18 No visit notes to display ACOG First Trimester First Trimester: Desire for , Alcohol, Tobacco Cessation, Illicit/Recreational Drug/Substance Use, Intimate Partner Violence, Barriers to care, Unstable Housing, Communication Barriers, Environmental/Work Hazards, Anticipated Course of Care, Toxoplasmosis Precations, Use of Any medications, Sexual activity, Exercise, Dental Care, Sauna/Hot tub use, Seat Belt use, Childbirth classes/Hospital facilities, , Travel, Indications for US and Screening for Aneuploidy Diagnostics Diagnostics Labs Hct 34.4 % (37-47) L 05/31/18 Hgb 11.3 g/dl (12.0-15.0) L 05/31/18 Obstetrics Ultrasound 06/24/18 Glucose 1 Hr 50 gm 147 mg/dL (70-140) H 05/31/18 Details: HIV: Urine Culture: Sequential Screen: NIPT Screen: Assessment AND Plan Problems 1. Elevated glucose tolerance test R73.09 1 elevated value in 3 hr GTT 2. 37 weeks gestation of Z3A.37 genetic, carrier, ntd screening declined. anatomy scan normal. 3. Encounter for supervision of other normal in third trimester Z34.83 PRR DELMI 09/06/18 boy - Pranav PC Lauro Adoins Plan movement and labor precautions reviewed. ACOG trimester education reviewed and updated. see problem list details for updated plan management information and see below for orders placed at this visit. GA appropriate handout given. Orders Orders: Coding Level of Care Code OB Routine Diagnoses Elevated glucose tolerance test R73.09 37 weeks gestation of Z3A.37 Weeks of gestation: 37 weeks Encounter for supervision of other normal in third trimester Z34.83 Normal : other normal Trimester: third trimester 08/16/18 1329 <Electronically signed by Claire Torres MD> Date Claire Torres MD Cosigner Signature: Date (if applicable) CC: Observed: 08/16/2018 Status: F Source: [place] CULTURE, GROUP B 12:00 AM [facility] STREPTOCOCCUS REPOSITORY [place]ANE[place] Culture Group B Beta Streptococcus is not isolated. Performed By: #### M100.1800 #### [facility] [address] [place], [address] [employer]OM WEAVER OFFICE VISIT Observed: 07/31/2018 Status: F Source: [place] RE[place] 11:19 AM [facility] REPOSITORY [place] [facility] [address] [place] [address] OFFICE VISIT Date of Service: 07/31/18 MR#: [id number] Acct: [id number] Name: LLUVIA OREILLY Rep #: [id number] : 1990 Provider: Claire Torres MD Age/Sex: 27/F Location: [facility] Status: Signed Intake Vital Signs07/31/18 Body Mass Index (BMI) 28.3 07/31/18 Height 5 ft 1 in 07/31/18 Weight: 152 lb 07/31/18 Body Mass Index (BMI) 28.7 07/31/18 Blood Pressure 110/64 Intake Visit Reasons: OB Chief Complaint: est ob Casting Supervisor Required: No Is patient in pain?: No Allergies latex Adverse Reaction (Verified 07/31/18 11:04) Rash Medications vitamin,calcium,xtqadhmh-aime-fyvnh acid tablet 1 tab PO QDAY 02/28/18 [History Confirmed 07/29/18] Clindamycin [Cleocin] 300 mg PO 4X/DAY #80 cap 07/29/18 [Rx Confirmed 07/31/18] Last Menstral Period: 11/30/17 Zika: Zika virus screening: Negative : No PFSH PFSH Social History Smoking Status: Never smoker alcohol intake: never substance use type: does not use caffeine: Yes what type of physical activity do you participate in: walking seatbelt use: always do you feel safe at home: Yes additional social history: Solitario De Guzman 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 DatName GA/WeeksOutcome Route [facility] LocaProviderFOB e ht en ia tn Unknown 2015 Leo40 live birNSVD 8lbs 2 oMale [place] n th - ful unces l term HPI OB: Details: LLUVIA OREILLY is a 27 year old who presents for routine OB visit. OB Visit DELMI Calculator Estimated Delivery Date 09/06/18 Based on LMP (certain) 11/30/17 Current WG 34w 5d Number 1 Expected Delivery Route/Plan Specific Issue/Plans flu vaccine: get next visit. tdap vaccine: get next visit LARC form signed: labor support person: rosalia Lamb pain management: minimal intervention cut cord/dad catch: none this time : yes PP control planned: pill special requests: Initial Weight: 129 lb Date Weight BP Urine PFHR FuHt Pres MCTX DilatioFetal SVisit NProvideComment rot ov n t ote r s EGA Ef Gluco faced se 02/28/1129 lb 114/59 8 4 oz (+ 124 oz) w 6d Visit Notes Visit Date: 07/31/18 no vb lof good fm no regula rctx Claire Torres MD on 07/31/18 Visit Date: 07/17/18 no vb lof good fm no regular ctx Claire Torres MD on 07/17/18 Visit Date: 07/03/18 no vb lof good fm no regular ctx Claire Torres MD on 07/03/18 Visit Date: 06/21/18 vaginal irritation- looks like yeast, recommend monistat 7. swabs sent Claire Torres MD on 06/21/18 Visit Date: 05/24/18 no vb lof good fm no regualr ctx Claire Torres MD on 05/24/18 Visit Date: 05/17/18 No visit notes to display Visit Date: 04/24/18 no vb cramping having some round ligament pain Claire Torres MD on 04/24/18 Visit Date: 03/28/18 no vb cramping Claire Torres MD on 03/28/18 Visit Date: 02/28/18 No visit notes to display ACOG First Trimester First Trimester: Desire for , Alcohol, Tobacco Cessation, Illicit/Recreational Drug/Substance Use, Intimate Partner Violence, Barriers to care, Unstable Housing, Communication Barriers, Environmental/Work Hazards, Anticipated Course of Care, Toxoplasmosis Precations, Use of Any medications, Sexual activity, Exercise, Dental Care, Sauna/Hot tub use, Seat Belt use, Childbirth classes/Hospital facilities, , Travel, Indications for US and Screening for Aneuploidy Diagnostics Diagnostics Labs Hct 34.4 % (37-47) L 05/31/18 Hgb 11.3 g/dl (12.0-15.0) L 05/31/18 Obstetrics Ultrasound 06/24/18 Glucose 1 Hr 50 gm 147 mg/dL (70-140) H 05/31/18 Details: HIV: Urine Culture: Sequential Screen: NIPT Screen: Results [id number] Office Urine Glucose Negative Last Edit by Vernell Chino on 07/31/18 11:08 Office Urine Protein Negative Last Edit by Vernell Chino on 07/31/18 11:08 Assessment AND Plan Problems 1. Elevated glucose tolerance test R73.09 1 elevated value in 3 hr GTT 2. 34 weeks gestation of Z3A.34 genetic, carrier, ntd screening declined. anatomy scan normal. 3. Encounter for supervision of other normal in third trimester Z34.83 PRR DELMI 09/06/18 boy - Pranav PC Lauro Adonis Plan movement and labor precautions reviewed. ACOG trimester education reviewed and updated. see problem list details for updated plan management information and see below for orders placed at this visit. GA appropriate handout given. Orders Orders: Coding Level of Care Code OB Routine Diagnoses Elevated glucose tolerance test R73.09 34 weeks gestation of Z3A.34 Weeks of gestation: 34 weeks Encounter for supervision of other normal in third trimester Z34.83 Normal : other normal Trimester: third trimester 07/31/18 1119 <Electronically signed by Cliare Torres MD> Date Claire Torres MD Cosigner Signature: Date (if applicable) CC: EMERGENCY DEPARTMENT Observed: 07/29/2018 Status: F Source: [place] SUMMARY 3:54 PM [facility] REPOSITORY [facility] Medical Records Department [address] [place] [address] Emergency Department Summary 07/29/18 1352 MR#: [id number] Acct: [id number] Name: LLUVIA OREILLY Rep #: [id number] : 1990 27 From: Yifan Amin MD PCP: Enio Acosta MD Status: DEP ER - ER Visit Summary Date of Service: 07/29/18 Chief Complaint: Right knee pain History of Present Illness: The patient is a 27 F presenting for evaluation secondary to right knee pain. Patient reports that over the course of last 24 hours she has had an onset of redness over her right anterior knee. No injury associated with this. Patient states she has pain with palpation of the area. She denies any presence of fevers. Patient was seen at urgent care and was recommended to come to the emergency department for this. Patient denies any chest pain or shortness of breath. She is never had any prior similar episodes in the past. Physical Examination: Right lower extremity exam shows erythema over the patient's prepatellar bursa without significant evidence of skin violation. There is tenderness to palpation in this area. No pain with short arc range of motion of the knee, no evidence of diffuse joint effusion or warmth of the joint. Calf is supple no palpable cord, thigh is soft with no palpable cord. Remainder physical otherwise unremarkable. Emergency Department Course and Treatment: Patient presented secondary to redness of her knee. In urgent care had some concern for septic joint, I do not have concern for septic joint as this very clearly is prepatellar bursitis. Patient will be given an Amilcar wrap, will be placed on clindamycin, and will be given orthopedics with which to follow-up. She was given signs and symptoms for which to return. Disposition: Discharge Impression: 1. Right prepatellar bursitis This note was generated with [employer] dictation software. It may contain incorrect words, spelling, and punctuation that were not noted in review of the chart prior to signing ED Disposition - Plan for ED Patient: Disposition: Home or Assisted Living Chief Complaint: Lower Extremity Injury Diagnosis: Prepatellar bursitis of right knee Instructions: ED Bursitis Prescriptions: Clindamycin [Cleocin] 300 mg PO 4X/DAY #80 cap Referrals: Yifan García DO [STAFF PHYSICIAN] - 3-5 Days What to do if you have Problems For any increased pain, shortness of breath, bleeding, nausea or vomiting, chest pain, or any unexpected problems, contact your Primary Care Provider. Call [facility] ([phone]) or report to the closest Emergency Room. Call 911 if necessary. 07/29/18 2966 <Electronically signed by Yifan Amin MD> Date Yifan Amin MD Cosigner Signature (If Indicated): Date CC: Enio Acosta MD BRO[employer]LOOM WEAVER OFFICE VISIT Observed: 07/17/2018 Status: F Source: SRAVAN REPORT 2:29 PM [facility] REPOSITORY [facility] [address] [place] [address] OFFICE VISIT Date of Service: 07/17/18 MR#: [id number] Acct: [id number] Name: LLUVIA OREILLY Rep #: [id number] : 1990 Provider: Claire Torres MD Age/Sex: 27/F Location: [facility] Status: Signed Intake Vital Signs07/17/18 Height 5 ft 1 in 07/17/18 Weight: 149 lb 6 oz 07/17/18 Body Mass Index (BMI) 28.2 07/17/18 Blood Pressure 134/58 H Intake Visit Reasons: OB Casting Supervisor Required: No Is patient in pain?: No Allergies latex Adverse Reaction (Verified 07/17/18 13:52) Rash Medications vitamin,calcium,fhpvzued-ymdj-wdxkv acid tablet 1 tab PO QDAY 02/28/18 [History Confirmed 07/17/18] Last Menstral Period: 11/30/17 Zika: Zika virus screening: Negative : No PFSH PFSH Social History Smoking Status: Never smoker alcohol intake: never substance use type: does not use caffeine: Yes what type of physical activity do you participate in: walking seatbelt use: always do you feel safe at home: Yes additional social history: Solitario De Guzman Patient works at [employer] 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 DatName GA/WeeksOutcome Route [facility] LgAnestheFLel LocaProviderFOB e ht en ia tn Unknown 2016 Leo40 live birNSVD 8lbs 2 oMale [place] n th - ful unces l term HPI OB: Details: LLUVIA OREILLY is a 27 year old who presents for routine OB visit. OB Visit DELMI Calculator Estimated Delivery Date 09/06/18 Based on LMP (certain) 11/30/17 Current WG 32w 5d Number 1 Expected Delivery Route/Plan Specific Issue/Plans flu vaccine: get next visit. tdap vaccine: get next visit LARC form signed: labor support person: rosalia Lamb pain management: minimal intervention cut cord/dad catch: none this time : yes PP control planned: pill special requests: Initial Weight: 129 lb Date Weight BP Urine PrFHR FuHt Pres MoCTX DilationFetal StVisit NoProviderComments E ot v te [place] G Effac lucose ed Visit Notes Visit Date: 07/17/18 no vb lof good fm no regular ctx Claire Torres MD on 07/17/18 Visit Date: 07/03/18 no vb lof good fm no regular ctx Claire Torres MD on 07/03/18 Visit Date: 06/21/18 vaginal irritation- looks like yeast, recommend monistat 7. swabs sent Claire Torres MD on 06/21/18 Visit Date: 05/24/18 no vb lof good fm no regualr ctx Claire Torres MD on 05/24/18 Visit Date: 05/17/18 No visit notes to display Visit Date: 04/24/18 no vb cramping having some round ligament pain Claire Torres MD on 04/24/18 Visit Date: 03/28/18 no vb cramping Claire Torres MD on 03/28/18 Visit Date: 02/28/18 No visit notes to display ACOG First Trimester First Trimester: Desire for , Alcohol, Tobacco Cessation, Illicit/Recreational Drug/Substance Use, Intimate Partner Violence, Barriers to care, Unstable Housing, Communication Barriers, Environmental/Work Hazards, Anticipated Course of Care, Toxoplasmosis Precations, Use of Any medications, Sexual activity, Exercise, Dental Care, Sauna/Hot tub use, Seat Belt use, Childbirth classes/Hospital facilities, , Travel, Indications for US and Screening for Aneuploidy Diagnostics Diagnostics Labs Blood Type O POSITIVE 03/28/18 Antibody Screen NEGATIVE 03/28/18 Hct 34.4 % (37-47) L 05/31/18 Hgb 11.3 g/dl (12.0-15.0) L 05/31/18 Obstetrics Ultrasound 06/24/18 Rubella IgG Antibody 232.1 IU/mL 03/28/18 RPR NONREACTIVE (NONREACTIVE) 03/28/18 Hep Bs Antigen Negative (Negative) 03/28/18 Glucose 1 Hr 50 gm 147 mg/dL (70-140) H 05/31/18 Details: HIV: Urine Culture: Sequential Screen: NIPT Screen: ROS Const Denies fever(s) GI Denies abdominal pain, Reports as per HPI Denies vaginal discharge, Denies abnormal vaginal bleeding, Reports as per HPI Exam Const General: healthy appearing, comfortable, no acute distress GI Inspection: normal to inspection Palpation: soft, nontender Assessment AND Plan Problems 1. Elevated glucose tolerance test R73.09 1 elevated value in 3 hr GTT 2. 32 weeks gestation of Z3A.32 genetic, carrier, ntd screening declined. anatomy scan normal. 3. Encounter for supervision of other normal in third trimester Z34.83 PRR DELMI 09/06/18 boy - [facility] Lauro Adonis Plan movement and labor precautions reviewed. ACOG trimester education reviewed and updated. see problem list details for updated plan management information and see below for orders placed at this visit. [place] appropriate handout given. Coding Level of Care Code Off vis,est,level 3 Diagnoses Elevated glucose tolerance test R73.09 32 weeks gestation of Z3A.32 Weeks of gestation: 32 weeks Encounter for supervision of other normal in third trimester Z34.83 Normal : other normal Trimester: third trimester 07/17/18 1429 <Electronically signed by Claire Torres MD> Date Claire Torres MD Cosigner Signature: Date (if applicable) CC: [employer]LOOM WEAVER OFFICE VISIT Observed: 07/03/2018 Status: F Source: SRAVAN REPORT 11:09 AM [facility] [address] [place] [address] OFFICE VISIT Date of Service: 07/03/18 MR#: [id number] Acct: [id number] Name: LLUVIA OREILLY Rep #: [id number] : 1990 Provider: Claire Torres MD Age/Sex: 27/F Location: [facility] Status: Signed Intake Vital Signs07/03/18 Height 5 ft 1 in 07/03/18 Weight: 148 lb 07/03/18 Body Mass Index (BMI) 27.9 07/03/18 Blood Pressure 112/64 Intake Visit Reasons: 31 week ob Casting Supervisor Required: No Is patient in pain?: No Allergies latex Adverse Reaction (Verified 07/03/18 10:51) Rash Medications vitamin,calcium,sooeohdw-ljle-gwbbi acid tablet 1 tab PO QDAY 02/28/18 [History Confirmed 07/03/18] Last Menstral Period: 11/30/17 Zika: Zika virus screening: Negative : No PFSH PFSH Social History Smoking Status: Never smoker alcohol intake: never substance use type: does not use caffeine: Yes what type of physical activity do you participate in: walking seatbelt use: always do you feel safe at home: Yes additional social history: Solitario De Guzman Patient works at [employer] 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 DatName GA/WeeksOutcome Route [facility] LocaProviderFOB e ht en ia tn Unknown 2015 Leo40 live birNSVD 8lbs 2 oMale [place] n th - ful unces l term HPI 31 week ob: Details: LLUVIA OREILLY is a 27 year old who presents for routine OB visit. Protein and glucose negative. OB Visit DELMI Calculator Estimated Delivery Date 09/06/18 Based on LMP (certain) 11/30/17 Current WG 30w 5d Number 1 Expected Delivery Route/Plan Specific Issue/Plans flu vaccine: get next visit. tdap vaccine: get next visit LARC form signed: labor support person: [] pain management: [] cut cord/dad catch: [] : [] PP control planned: [] special requests: [] Initial Weight: 129 lb Date Weight BP Urine PrFHR FuHt Pres MoCTX DilationFetal StVisit NoProviderComments E ot v te [place] G Effac lucose ed Visit Notes Visit Date: 07/03/18 no vb lof good fm no regular ctx Claire Torres MD on 07/03/18 Visit Date: 06/21/18 vaginal irritation- looks like yeast, recommend monistat 7. swabs sent Claire Torres MD on 06/21/18 Visit Date: 05/24/18 no vb lof good fm no regualr ctx Claire Torres MD on 05/24/18 Visit Date: 05/17/18 No visit notes to display Visit Date: 04/24/18 no vb cramping having some round ligament pain Claire Torres MD on 04/24/18 Visit Date: 03/28/18 no vb cramping Claire Torres MD on 03/28/18 Visit Date: 02/28/18 No visit notes to display ACOG First Trimester First Trimester: Desire for , Alcohol, Tobacco Cessation, Illicit/Recreational Drug/Substance Use, Intimate Partner Violence, Barriers to care, Unstable Housing, Communication Barriers, Environmental/Work Hazards, Anticipated Course of Care, Toxoplasmosis Precations, Use of Any medications, Sexual activity, Exercise, Dental Care, Sauna/Hot tub use, Seat Belt use, Childbirth classes/Hospital facilities, , Travel, Indications for US and Screening for Aneuploidy Diagnostics Diagnostics Labs Blood Type O POSITIVE 03/28/18 Antibody Screen NEGATIVE 03/28/18 Hct 34.4 % (37-47) L 05/31/18 Hgb 11.3 g/dl (12.0-15.0) L 05/31/18 Obstetrics Ultrasound 06/24/18 Rubella IgG Antibody 232.1 IU/mL 03/28/18 RPR NONREACTIVE (NONREACTIVE) 03/28/18 Hep Bs Antigen Negative (Negative) 03/28/18 Glucose 1 Hr 50 gm 147 mg/dL (70-140) H 05/31/18 Details: HIV: Urine Culture: Sequential Screen: NIPT Screen: Office Meds Flucelvax Quad [id number] (PF) Performing Provider: Claire Torres MD Administered by: Leonor Hutchins on 07/03/18 11:02 Dose Route Admin Location Lot Number Expiration Date [place] Movement Education Specialist 60 mcg IM left deltoid [id number] 03/09/19 76947-210-07 SEQIRUS Immunizations Boostrix Tdap Performing Provider: Claire Torres MD Administered by: Leonor Hutchins on 07/03/18 11:02 Dose Route Admin Location Lot Number Expiration Date [place] Movement Education Specialist 0.5 mL IM Right Deltoid [id number] 08/03/19 34366-151-08 [employer]PA[employer] VIS Given Date VIS Publication Date 07/03/18 11/03/14 Eligibility Eligibility Date Assessment AND Plan Problems 1. Elevated glucose tolerance test R73.02 1 elevated value in 3 hr GTT 2. 30 weeks gestation of Z3A.30 genetic, carrier, ntd screening declined. anatomy scan normal. 3. Encounter for supervision of other normal in second trimester Z34.82 PRR DELMI 09/06/18 boy - [facility] Lauro Adonis Plan movement and labor precautions reviewed. ACOG trimester education reviewed and updated. see problem list details for updated plan management information and see below for orders placed at this visit. GA appropriate handout given. Orders Orders: Medications Discontinued: Flucelvax Quad [id number] (PF) (flu vac qs 2018(4 yr60 mcg (0.5 mL) IM ONCE 1 mL 0RF NS Z23 up)CD(PF)) Discontinued Reason: Office Medicat ion has been Documented as given Coding Level of Care Code OB Routine Diagnoses Elevated glucose tolerance test R73.02 30 weeks gestation of Z3A.30 Weeks of gestation: 30 weeks Encounter for supervision of other normal in second trimester Z34.82 Normal : other normal Trimester: second trimester 07/03/18 1109 <Electronically signed by Claire Torres MD> Date Claire Torres MD Cosigner Signature: Date (if applicable) CC: OB LIMITED WITH Observed: 06/24/2018 Status: F Source: [place] [employer] 2:23 PM [facility] REPOSITORY [facility] Imaging Services [address] [place] [address] OB Limited With Biometrics MR#: [id number] Acct: [id number] Name: LLUVIA OREILLY Rep #: [id number] : 1990 F 27 From: Omar Ordonez MD PCP: Enio Acosta MD Status: REG CLI Study: OB Limited With Biometrics Date of Exam: 06/24/18 Exam# [id number] Ordering Dr: Claire Torres MD STUDY: SECOND AND THIRD TRIMESTER OBSTETRICAL ULTRASOUND - LIMITED REASON FOR EXAM: Female, 27 years old. Low-lying placenta. LMP: PRIOR ULTRASOUND: 05/15/2018. TECHNIQUE: Transabdominal and Transvaginal TECHNICAL QUALITY: Adequate. FINDINGS: There is a single intrauterine fetus. The fetus is in a cephalic presentation. There is demonstrated cardiac activity with a heart rate of 143 bpm. There is a normal amniotic fluid volume. The largest amniotic fluid pocket measures 3.7 cm. The amniotic fluid index (WILL) is 12.6 cm. The placenta is posterior in location and is not low lying. There are Grade 1 placental changes. The cervix measures 3.1 cm in length. BIOMETRY: BPD: 7.4: 29 weeks, 4 days HC: 27.4: 30 weeks, 0 days AC: 24.3: 28 weeks, 5 days FL: 5.5: 28 weeks, 6 days Age by LMP: 29 weeks, 3 days. DELMI by LMP: 09/06/2018 . age by prior US: 29 weeks, 1 days. DELMI by prior US: 09/08/2018. age by current US: 29 weeks, 2 days. DELMI by current US: 09/07/2018 Estimated weight: 1294 grams, +/- 189 grams, 19 percentile. Gender: US/OB Limited With Biometrics IMPRESSION: Single live fetus in a vertex presentation. survey not performed on this exam. Placenta is grade 1 and is not low-lying. Placenta is 2.7 cm from the internal os. Cervix is closed. age by current US: 29 weeks, 2 days. DELMI by current US: 09/07/2018 Estimated weight: 1294 grams, +/- 189 grams, 19 percentile. Electronically Signed: Omar Ordonez MD at 18:36 EDT , Service support , CC: Enio Acosta MD; Claire Torres MD Prime Broker: Signed [employer]LOOM WEAVER OFFICE VISIT Observed: 06/21/2018 Status: F Source: SRAVAN REPORT 12:50 PM [facility] [address] [place] [address] OFFICE VISIT Date of Service: 06/21/18 MR#: [id number] Acct: [id number] Name: LLUVIA OREILLY Rep #: [id number] : 1990 Provider: Claire Torres MD Age/Sex: 27/F Location: [facility] Status: Signed Intake Vital Signs06/21/18 Height 5 ft 1 in 06/21/18 Weight: 144 lb 8 oz 06/21/18 Body Mass Index (BMI) 27.3 06/21/18 Blood Pressure 100/70 Intake Visit Reasons: 28 WEEK OB Casting Supervisor Required: No Is patient in pain?: No Allergies latex Adverse Reaction (Verified 06/21/18 11:19) Rash Medications vitamin,calcium,vncnflxq-yeac-bgsig acid tablet 1 tab PO QDAY 02/28/18 [History Confirmed 06/21/18] Last Menstral Period: 11/30/17 Zika: Zika virus screening: Negative : No PFSH PFSH Social History Smoking Status: Never smoker alcohol intake: never substance use type: does not use caffeine: Yes what type of physical activity do you participate in: walking seatbelt use: always do you feel safe at home: Yes additional social history: Solitario De Guzman 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 DatName GA/WeeksOutcome Route [facility] A[facility] Hernandez LgAnesthesDel LocaProviderFOB e ht en ia tn Unknown 2015 Leo40 live birNSVD 8lbs 2 oMale Kennedy n th - ful unces l term HPI 28 WEEK OB: Details: LLUVIA OREILLY is a 27 year old who presents for routine OB visit. OB Visit DELMI Calculator Estimated Delivery Date 09/06/18 Based on LMP (certain) 11/30/17 Current WG 29w 0d Number 1 Expected Delivery Route/Plan Specific Issue/Plans flu vaccine: get next visit. tdap vaccine: get next visit LARC form signed: labor support person: [] pain management: [] cut cord/dad catch: [] : [] PP control planned: [] special requests: [] Initial Weight: 129 lb Date Weight BP Urine PFHR FuHt Pres MCTX DilatioFetal SVisit NProvideComment rot ov n t ote r s EGA Ef Gluco faced se 02/28/1129 lb 114/59 8 4 oz (+ 124 oz) w 6d Visit Notes Visit Date: 06/21/18 vaginal irritation- looks like yeast, recommend monistat 7. swabs sent Claire Torres MD on 06/21/18 Visit Date: 05/24/18 no vb lof good fm no regualr ctx Claire Torres MD on 05/24/18 Visit Date: 05/17/18 No visit notes to display Visit Date: 04/24/18 no vb cramping having some round ligament pain Claire Torres MD on 04/24/18 Visit Date: 03/28/18 no vb cramping Claire Torres MD on 03/28/18 Visit Date: 02/28/18 No visit notes to display ACOG First Trimester First Trimester: Desire for , Alcohol, Tobacco Cessation, Illicit/Recreational Drug/Substance Use, Intimate Partner Violence, Barriers to care, Unstable Housing, Communication Barriers, Environmental/Work Hazards, Anticipated Course of Care, Toxoplasmosis Precations, Use of Any medications, Sexual activity, Exercise, Dental Care, Sauna/Hot tub use, Seat Belt use, Childbirth classes/Hospital facilities, , Travel, Indications for US and Screening for Aneuploidy Diagnostics Diagnostics Labs Blood Type O POSITIVE 03/28/18 Antibody Screen NEGATIVE 03/28/18 Hct 34.4 % (37-47) L 05/31/18 Hgb 11.3 g/dl (12.0-15.0) L 05/31/18 Obstetrics Ultrasound 05/15/18 Rubella IgG Antibody 232.1 IU/mL 03/28/18 RPR NONREACTIVE (NONREACTIVE) 03/28/18 Hep Bs Antigen Negative (Negative) 03/28/18 Chlam trachomat DNA PCR Negative (Negative) 02/28/18 N.gonorrhoeae DNA (PCR) Negative (Negative) 02/28/18 Glucose 1 Hr 50 gm 147 mg/dL (70-140) H 05/31/18 Details: HIV: Urine Culture: Sequential Screen: NIPT Screen: Results [id number] Office Urine Glucose Negative Last Edit by Joselin Robbins on 06/21/18 11:17 Office Urine Protein Trace Last Edit by Joselin Robbins on 06/21/18 11:17 Assessment AND Plan Problems 1. Encounter for supervision of other normal in second trimester Z34.82 DELMI 09/06/18 PC Lauro Adonis 2. Low lying placenta nos or without hemorrhage, second trimester O44.42 Repeat US in 4 weeks 3. 29 weeks gestation of Z3A.29 genetic, carrier, ntd screening declined. anatomy scan normal. 4. Elevated glucose tolerance test R73.02 1 elevated value in 3 hr GTT Plan movement and labor precautions reviewed. ACOG trimester education reviewed and updated. see problem list details for updated plan management information and see below for orders placed at this visit. [place] appropriate handout given. recommend monistat otc for possible yeast infection, tests ordered Orders Orders: Coding Level of Care Code OB Routine Diagnoses Encounter for supervision of other normal in second trimester Z34.82 Normal : other normal Trimester: second trimester Low lying placenta nos or without hemorrhage, second trimester O44.42 29 weeks gestation of Z3A.29 Weeks of gestation: 29 weeks Elevated glucose tolerance test R73.02 06/21/18 1250 <Electronically signed by Claire Torres MD> Date Claire Torres MD Cosigner Signature: Date (if applicable) CC: Observed: 06/21/2018 Status: F Source: S[place]VAN CULTURE, GENITAL 12:00 AM [facility] COMPREHENSIVE REPOSITORY Reason for Exam: vaginitis Gram Stain Score = 0 Interpretation: 0-3 Normal, 4-6 Intermediate, 7-10 Positive BV Gram Stain 4+ Gram positive rods 1+ White Blood Cells 2+ Epithelial cells No Gram negative diplococci No Yeast Like Organisms 1+ Gram positive cocci Gent Cult Comp No Gardnerella, Neisseria or beta-hemolytic Streptococcus isolated. #2 FLUCONAZOLE VERN 0.5 ug/ml Susceptible Amphoteracin B VERN 0.5 ug/ml There are no CLSI standards for interpretation of this Drug/Organism combination. TESTING PERFORMED AT [facility]. ORIGINAL REPORT ON FILE IN LAB CONTAINS ADDITIONAL TEST SITE INFORMATION. ORGANISM 1: Staphylococcus aureus Amount Growth 3+ ORGANISM 2: Lorena albicans Amount Growth 2+ Staphylococcus aureus: REACTION Benzylpenicillin NF >=0.5 R Cefoxitin *NF - Clindamycin $$ <=0.25 R Inducable Clindamycin Resistan + Erythromycin $ 1 R Gentamicin $ <=0.5 S Levofloxacin $ 0.25 S Linezolid $$$$ 2 S Moxifloxicin *NF <=0.25 S Oxacillin NF 0.5 S Tigecycline $$$$ <=0.12 S Rifampin $$ <=0.5 S Tetracycline NF <=1 S Trimethoprim/Sulfametho $ <=10 S Vancomycin $ 1 S (NF) indicates non-formulary drug at [facility]. Approval by Infectious Disease Specialist required before non-formulary drugs may be ordered and/or dispensed. * CLSI guidelines does not recommend testing of cephalosporins. This interpretation is deduced from Beta-lactam/penicillin results. Performed By: #### M100.1600 #### [facility] [place] [place], [address] OFFICE VISIT REPORT Observed: 06/19/2018 Status: F Source: SRAVAN 3:13 AM [facility] REPOSITORY [facility] [place] [address] OFFICE VISIT Date of Service: 05/03/18 MR#: [id number] Acct: [id number] Patient: LLUVIA OREILLY Rep #: [id number] : 1990 Provider: Claire Torres MD Age/Sex: 27/F Location: [facility] Status: Signed Intake Vital Signs05/03/18 Height 5 ft 1 in 05/03/18 Weight: 137 lb 05/03/18 Body Mass Index (BMI) 25.9 05/03/18 Blood Pressure 118/65 Intake Visit Reasons: ? UTI Chief Complaint: est ob Casting Supervisor Required: No Is patient in pain?: Yes Allergies latex Adverse Reaction (Verified 05/24/18 14:11) Rash Medications vitamin,calcium,yiawrqms-jvjl-dajjz acid tablet 1 tab PO QDAY 02/28/18 [History Confirmed 05/24/18] Post menopausal: No Patient : Yes Results BMSUA Office Urine Color Yellow Last Edit by Karina Aviles on 05/03/18 14:38 Office Urine Clarity Clear Last Edit by Karina Aviles on 05/03/18 14:38 Assessment AND Plan Orders Orders: 06/19/18 0313 <Electronically signed by Claire Torres MD> Date Claire Torres MD Cosigner Signature: Date (if applicable) CC: GESTATIONAL GTT 3HR Collected: 06/14/2018 Status: F Source: SRAVAN 100G 10:22 AM [facility] REPOSITORY Order Comment: Is Patient Fasting? Y TYPE CODE TESTS RESULT OUT OF RANGE REFERENCE UNITS LAB L501.0650 <105 mg/dL Normal GLU 82 GTT-FASTING Result Comment: GLUCOSE TOLERANCE TEST FOR Reference Interval GESTATIONAL DIABETES Fasting <105 mg/dL 1 hour <190 mg/dl 2 hour <165 mg/dl 3 hour <145 mg/dl LAB L501.0660 <190 mg/dL Normal GLU GTT- 1HR 189 LAB L501.0670 <165 mg/dL Normal GLU GTT- 2HR 127 LAB L501.0680 <145 L Normal GLU GTT- 3HR 115 Performed By: #### L500.4710 #### [facility] [address] [place], [address] CBC W/DIFF, AUTOMATED Collected: 05/31/2018 Status: F Source: [place] 1:25 PM [facility] REPOSITORY TYPE CODE TESTS RESULT OUT OF RANGE REFERENCE UNITS LAB L100.1000 4.4-11.0 K/mm3 Normal WBC 9.7 LAB L100.1200 4.2-5.4 M/mm3 Low RBC 3.79 LAB L100.1300 12.0-15.0 g/dl Low HGB 11.3 LAB L100.1400 37-47 % Low HCT 34.4 LAB L100.1500 81-99 fL Normal MCV 90.8 LAB L100.1600 27.0-32.0 pg Normal MCH 29.8 LAB L100.1700 32-36 g/gl Normal MCHC 32.8 LAB L100.1810 11.6-14.6 % Normal RDW CV 13.9 LAB L100.1820 35.1-43.9 fl High RDW SD 45.9 LAB L100.1900 150-450 K/mm3 Normal PLT 151 LAB L100.2000 6.2-12.0 fl Normal MPV 11.0 LAB L100.2100 47-70 % High NEUT% 73.4 LAB L100.2200 19-41 % Low LY% 13.5 LAB L100.2300 0-10 % Normal MONO% 6.2 LAB L100.2400 0-5 % High EO% 5.8 LAB L100.2500 0-1 % Normal BASO% 0.2 LAB L100.2550 0.0-0.9 % Normal IM GRAN % 0.900 Result Comment: IG% - Immature Granulocytes (promyelocytes, myelocytes and metamyelocytes) > 1% indicates that a LEFT SHIFT is Present. LAB L100.2620 2.0-7.7 X10 3/uL Normal Absolute Neut 7.1 LAB L100.2720 0.83-4.51 X10 3/ul Normal Absolute Lymph 1.31 Performed By: #### L100.0100, L501.0250 #### [facility] [address] [place], [address] GLUCOSE CHALLENGE GEST Collected: 05/31/2018 Status: F Source: [place] 1H 50G 1:25 PM [facility] REPOSITORY TYPE CODE TESTS RESULT OUT OF RANGE REFERENCE UNITS LAB L501.0250 70-140 mg/dL High GLU GEST 147 50g 1H Performed By: #### L100.0100, L501.0250 #### [facility] [address] [place], [address] [employer]OM WEAVER OFFICE VISIT Observed: 05/24/2018 Status: F Source: [place] REPORT 2:22 PM [facility] REPOSITORY [facility] [address] [place] [address] OFFICE VISIT Date of Service: 05/24/18 MR#: [id number] Acct: [id number] Name: LLUVIA OREILLY Rep #: [id number] : 1990 Provider: Claire Torres MD Age/Sex: 27/F Location: [facility] Status: Signed Intake Vital Signs05/24/18 Height 5 ft 1 in 05/24/18 Weight: 141 lb 2 oz 05/24/18 Body Mass Index (BMI) 26.6 05/24/18 Blood Pressure 126/56 Intake Visit Reasons: 24 WEEK OB Chief Complaint: est ob Casting Supervisor Required: No Is patient in pain?: No Allergies latex Adverse Reaction (Verified 05/24/18 14:11) Rash Medications vitamin,calcium,grwwwnxn-refn-nebdm acid tablet 1 tab PO QDAY 02/28/18 [History Confirmed 05/24/18] Last Menstral Period: 11/30/17 Zika: Zika virus screening: Negative : No PFSH PFSH Social History Smoking Status: Never smoker alcohol intake: never substance use type: does not use caffeine: Yes what type of physical activity do you participate in: walking seatbelt use: always do you feel safe at home: Yes additional social history: Solitario De Guzman 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 DatName GA/WeeksOutcome Route [facility] Aime Hernandez LgAnesthesDel LocaProviderFOB e ht en ia tn Unknown 2015 Leo40 live birNSVD 8lbs 2 oMale Kennedy n th - ful unces l term HPI 24 WEEK OB: Details: LLUVIA OREILLY is a 27 year old who presents for routine OB visit. OB Visit DELMI Calculator Estimated Delivery Date 09/06/18 Based on LMP (certain) 11/30/17 Current WG 25w 0d Number 1 Expected Delivery Route/Plan Specific Issue/Plans flu vaccine: [] minichart given: [] tdap vaccine: [] rhogam: [] LARC form signed: [] labor support person: [] pain management: [] cut cord/dad catch: [] : [] PP control planned: [] special requests: [] Initial Weight: 129 lb Date Weight BP Urine PFHR FuHt Pres MCTX DilatioFetal SVisit NProvideComment rot ov n t ote r s EGA Ef Gluco faced se 02/28/1129 lb 114/59 8 4 oz (+ 124 oz) w 6d Visit Notes Visit Date: 05/24/18 no vb lof good fm no regualr ctx Claire Torres MD on 05/24/18 Visit Date: 05/17/18 No visit notes to display Visit Date: 04/24/18 no vb cramping having some round ligament pain Claire Torres MD on 04/24/18 Visit Date: 03/28/18 no vb cramping Claire Torres MD on 03/28/18 Visit Date: 02/28/18 No visit notes to display ACOG First Trimester First Trimester: Desire for , Alcohol, Tobacco Cessation, Illicit/Recreational Drug/Substance Use, Intimate Partner Violence, Barriers to care, Unstable Housing, Communication Barriers, Environmental/Work Hazards, Anticipated Course of Care, Toxoplasmosis Precations, Use of Any medications, Sexual activity, Exercise, Dental Care, Sauna/Hot tub use, Seat Belt use, Childbirth classes/Hospital facilities, , Travel, Indications for US and Screening for Aneuploidy Diagnostics Diagnostics Labs Blood Type O POSITIVE 03/28/18 Antibody Screen NEGATIVE 03/28/18 Hct 37.8 % (37-47) 03/28/18 Hgb 12.9 g/dl (12.0-15.0) 03/28/18 Pap Smear Negative 08/16/15 Obstetrics Ultrasound 05/15/18 Rubella IgG Antibody 232.1 IU/mL 03/28/18 RPR NONREACTIVE (NONREACTIVE) 03/28/18 Hep Bs Antigen Negative (Negative) 03/28/18 Chlam trachomat DNA PCR Negative (Negative) 02/28/18 N.gonorrhoeae DNA (PCR) Negative (Negative) 02/28/18 Rhogam given: No 03/16/16 Details: HIV: Urine Culture: Sequential Screen: NIPT Screen: Results [id number] Office Urine Glucose Negative Last Edit by Vernell Chino on 05/24/18 14:16 Office Urine Protein Negative Last Edit by Vernell Chino on 05/24/18 14:16 Assessment AND Plan Problems 1. 25 weeks gestation of Z3A.25 previous term uncomplicated 8 lbs 2. Low lying placenta nos or without hemorrhage, second trimester O44.42 Repeat US in 4 weeks 3. Encounter for supervision of other normal in second trimester Z34.82 DELMI 09/06/18 PC Lauro Adonis 4. Gross hematuria R31.0 Plan check for uti ACOG trimester education reviewed and updated. see problem list details for updated plan management information and see below for orders placed at this visit. GA appropriate handout given. Orders Orders: Coding Level of Care Code OB Routine Diagnoses 25 weeks gestation of Z3A.25 Weeks of gestation: 25 weeks Low lying placenta nos or without hemorrhage, second trimester O44.42 Encounter for supervision of other normal in second trimester Z34.82 Normal : other normal Trimester: second trimester Gross hematuria R31.0 Hematuria type: gross 05/24/18 1422 <Electronically signed by Claire Torres MD> Date Claire Torres MD Cosigner Signature: Date (if applicable) CC: OB LIMITED WITH Observed: 05/15/2018 Status: F Source: [place] BIOMETRICS 3:58 PM [facility] REPOSITORY [facility] Imaging Services [address] [place] [address] OB Limited With Biometrics MR#: [id number] Acct: [id number] Name: LLUVIA OREILLY Rep #: [id number] : 1990 F 27 From: Damir Neal MD PCP: Enio Acosta MD Status: REG CLI Study: OB Limited With Biometrics Date of Exam: 05/15/18 Exam# [id number] Ordering Dr: Claire Torres MD STUDY: SECOND AND THIRD TRIMESTER OBSTETRICAL ULTRASOUND - LIMITED REASON FOR EXAM: Female, 27 years old. Placenta check LMP: Not given PRIOR ULTRASOUND: 04/12/2018 TECHNIQUE: Transabdominal ultrasound evaluation was performed. FINDINGS: There is a single intrauterine fetus. The fetus is in a cephalic presentation. There is demonstrated cardiac activity with a heart rate of 146 bpm. There is a grossly normal amniotic fluid volume. The largest amniotic fluid pocket measures 3.3 cm.The placenta is posterior and low lying but not previa in location. The inferior tip is located 16 mm from the cervical os. There are Grade 1 placental changes. The cervix measures 2.5 cm in length. BIOMETRY: BPD: 5.7 cm: 23 weeks, 4 days HC: 21.6: 23 weeks, 5 days AC: 19: 23 weeks, 6 days FL: 4.2: 23 weeks, 6 days Age by LMP: 23 weeks, 5 days. DELMI by LMP: 09/06/2018. age by prior US: 23 weeks, 3 days. DELMI by prior US: 09/08/2018. age by current US: 23 weeks, 6 days. DELMI by current US: 09/05/2018. Estimated weight: 626 grams, +/- 91 grams, 44 percentile. US/OB Limited With Biometrics IMPRESSION: Intrauterine gestation with sonographic age of 23 weeks 6 days. Cervix is closed. Low lying placenta with tip 16 mm from the cervical os. Positive cardiac activity. Grossly normal amniotic fluid volume. Electronically Signed: Damir Neal MD at 7:38 EDT Tel , Service support , CC: Enio Acosta MD; Claire Torres MD Prime Broker: Signed Observed: 05/03/2018 Status: F Source: [place] CULTURE, URINE 6:06 PM [facility] REPOSITORY Urine Culture Below infection level. ORGANISM 1: Mixed Gram Positive Organisms Breese Count <1000 Performed By: #### M100.0650 #### [facility] [place], [address] [employer]LO[employer] WEAVER OFFICE VISIT Observed: 04/24/2018 Status: F Source: [place] REPORT 10:00 AM [facility] REPOSITORY [facility] [address] [place] [address] OFFICE VISIT Date of Service: 04/24/18 MR#: [id number] Acct: [id number] Name: LLUVIA OREILLY Rep #: [id number] : 1990 Provider: Claire Torres MD Age/Sex: 27/F Location: [facility] Status: Signed Intake Vital Signs04/24/18 Blood Pressure 129/47 04/24/18 Height 5 ft 1 in 04/24/18 Weight: 134 lb 6 oz 04/24/18 Body Mass Index (BMI) 25.4 Intake Visit Reasons: 20 week ob Chief Complaint: est ob Casting Supervisor Required: No Is patient in pain?: No Allergies latex Adverse Reaction (Verified 04/24/18 09:50) Rash Medications vitamin,calcium,yealeakn-fwlk-szdia acid tablet 1 tab PO QDAY 02/28/18 [History Confirmed 04/24/18] Last Menstral Period: 11/30/17 Zika: Zika virus screening: Negative : No PFSH PFSH Social History Smoking Status: Never smoker alcohol intake: never substance use type: does not use caffeine: Yes what type of physical activity do you participate in: walking seatbelt use: always do you feel safe at home: Yes additional social history: Solitario De Guzman 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 DatName GA/WeeksOutcome Route [facility] WeigInfant Mary LgAnesthesDel LocaProviderFOB e ht en ia tn Unknown 2015 Leo40 live birNSVD 8lbs 2 oMale Kennedy n th - ful unces l term HPI 20 week ob: Details: LLUVIA OREILLY is a 27 year old who presents for routine OB visit. OB Visit DELMI Calculator Estimated Delivery Date 09/06/18 Based on LMP (certain) 11/30/17 Current WG 20w 5d Number 1 Expected Delivery Route/Plan Specific Issue/Plans flu vaccine: [] minichart given: [] tdap vaccine: [] rhogam: [] LARC form signed: [] labor support person: [] pain management: [] cut cord/dad catch: [] : [] PP control planned: [] special requests: [] Initial Weight: 129 lb Date Weight BP Urine PrFHR FuHt Pres MoCTX DilationFetal StVisit NoProviderComments E ot v te GA G Effac lucose ed Visit Notes Visit Date: 04/24/18 no vb cramping having some round ligament pain Claire Torres MD on 04/24/18 Visit Date: 03/28/18 no vb cramping Claire Torres MD on 03/28/18 Visit Date: 02/28/18 No visit notes to display ACOG First Trimester First Trimester: Desire for , Alcohol, Tobacco Cessation, Illicit/Recreational Drug/Substance Use, Intimate Partner Violence, Barriers to care, Unstable Housing, Communication Barriers, Environmental/Work Hazards, Anticipated Course of Care, Toxoplasmosis Precations, Use of Any medications, Sexual activity, Exercise, Dental Care, Sauna/Hot tub use, Seat Belt use, Childbirth classes/Hospital facilities, , Travel, Indications for US and Screening for Aneuploidy Diagnostics Diagnostics Labs Blood Type O POSITIVE 03/28/18 Antibody Screen NEGATIVE 03/28/18 Hct 37.8 % (37-47) 03/28/18 Hgb 12.9 g/dl (12.0-15.0) 03/28/18 Pap Smear Negative 08/16/15 Obstetrics Ultrasound 04/12/18 Rubella IgG Antibody 232.1 IU/mL 03/28/18 RPR NONREACTIVE (NONREACTIVE) 03/28/18 Hep Bs Antigen Negative (Negative) 03/28/18 Chlam trachomat DNA PCR Negative (Negative) 02/28/18 N.gonorrhoeae DNA (PCR) Negative (Negative) 02/28/18 Rhogam given: No 03/16/16 Details: HIV: Urine Culture: Sequential Screen: NIPT Screen: Results [id number] Office Urine Glucose Negative Last Edit by Vernell Chino on 04/24/18 09:54 Office Urine Protein Negative Last Edit by Vernell Chino on 04/24/18 09:54 Assessment AND Plan Problems 1. Encounter for supervision of other normal in second trimester Z34.82 DELMI 09/06/18 PC Lauro Adonis 2. Low lying placenta nos or without hemorrhage, second trimester O44.42 Repeat US in 4 weeks 3. Z34.90 previous term uncomplicated 8 lbs Plan ACOG trimester education reviewed and updated. see problem list details for updated plan management information and see below for orders placed at this visit. [place] appropriate handout given. Orders Orders: Coding Level of Care Code OB Routine Diagnoses Encounter for supervision of other normal in second trimester Z34.82 Normal : other normal Trimester: second trimester Low lying placenta nos or without hemorrhage, second trimester O44.42 Z34.90 04/24/18 1000 <Electronically signed by Claire Torres MD> Date Claire Torres MD Cosigner Signature: Date (if applicable) CC: OB ANATOMY SCAN Observed: 04/12/2018 Status: F Source: [place] 8:37 AM [facility] REPOSITORY [facility] Imaging Services [address] [place] [address] OB Anatomy Scan MR#: [id number] Acct: [id number] Name: LLUVIA OREILLY Rep #: [id number] : 1990 F 27 From: Romeo Woods MD PCP: Enio Acosta MD Status: REG CLI Study: OB Anatomy Scan Date of Exam: 04/12/18 Exam# [id number] Ordering Dr: Claire Torres MD STUDY: SECOND AND THIRD TRIMESTER OBSTETRICAL ULTRASOUND REASON FOR EXAM: Female, 27 years old. Routine survey. LMP: November 30, 2017. TECHNIQUE: Transabdominal and Transvaginal PRIOR ULTRASOUND: None. FINDINGS: There is a single intrauterine fetus. The fetus is in a breech presentation. There is demonstrated cardiac activity with a heart rate of 143 bpm. There is a normal amniotic fluid volume. The amniotic fluid index (WILL) is within normal limits. The placenta is posterior and low lying but not previa in location. The distal portion of the placenta is 1.1 cm from the cervical os. There are Grade 0 placental changes. The cervix measures 3.3 cm in length. The bilateral adnexal regions are normal. BIOMETRY: BPD: 3.9 cm: 18 weeks, 0 days HC: 15.3 cm: 18 weeks, 3 days AC: 14.2 cm: 19 weeks, 4 days FL: 2.8 cm: 18 weeks, 5 days CI: 74% FL/BPD: 72% FL/HC: FL/AC: 20% HC/AC: 1.08 age by current US: 18 weeks, 5 days. DELMI by current US: September 08, 2018. Estimated weight: 270 grams, +/- 39 grams, 47 %. Age by LMP: 19 weeks, 0 days. DELMI by LMP: September 06, 2018. ANATOMY: Gender: Male Cranium: Normal lateral ventricles. Normal choroid plexus. Normal cerebellum. Normal cisterna magna. Normal face, nose and lips. Chest: Normal 4-chamber heart. Abdomen/Pelvis: Normal diaphragm. Normal stomach. Normal abdominal wall. Normal cord insertion. Normal 3 vessel cord. Normal kidneys. Normal bladder. Spine: Normal cervical spine. Normal thoracic spine. Normal lumbar spine. Normal sacrum. Extremities: Normal bilateral upper extremities. Normal bilateral lower extremities. US/OB Anatomy Scan IMPRESSION: Single live intrauterine gestation with a mean gestational age of 18 weeks and 5 days. There is a low-lying posterior placenta. The tip of the placenta is 1.1 cm proximal to the cervical os. Electronically Signed: Romeo Woods MD at 10:53 EDT Tel [phone], Service support , CC: Enio Acosta MD; Claire Torres MD Prime Broker: Signed CBC W/DIFF, AUTOMATED Collected: 03/28/2018 Status: F Source: [place] 4:16 PM [facility] REPOSITORY TYPE CODE TESTS RESULT OUT OF RANGE REFERENCE UNITS LAB L100.1000 4.4-11.0 K/mm3 Normal WBC 9.0 LAB L100.1200 4.2-5.4 M/mm3 Normal RBC 4.35 LAB L100.1300 12.0-15.0 g/dl Normal HGB 12.9 LAB L100.1400 37-47 % Normal HCT 37.8 LAB L100.1500 81-99 fL Normal MCV 86.9 LAB L100.1600 27.0-32.0 pg Normal MCH 29.7 LAB L100.1700 32-36 g/gl Normal MCHC 34.1 LAB L100.1810 11.6-14.6 % Normal RDW CV 13.2 LAB L100.1820 35.1-43.9 fl Normal RDW SD 40.7 LAB L100.1900 150-450 K/mm3 Normal PLT 168 LAB L100.2000 6.2-12.0 fl Normal MPV 11.8 LAB L100.2100 47-70 % High NEUT% 71.0 LAB L100.2200 19-41 % Low LY% 17.2 LAB L100.2300 0-10 % Normal MONO% 5.5 LAB L100.2400 0-5 % High EO% 5.2 LAB L100.2500 0-1 % Normal BASO% 0.4 LAB L100.2550 0.0-0.9 % Normal IM GRAN % 0.700 Result Comment: IG% - Immature Granulocytes (promyelocytes, myelocytes and metamyelocytes) > 1% indicates that a LEFT SHIFT is Present. LAB L100.2620 2.0-7.7 X10 3/uL Normal Absolute Neut 6.4 LAB L100.2720 0.83-4.51 X10 3/ul Normal Absolute Lymph 1.55 Performed By: #### L100.0100 #### [facility] [address] [place], [place], [id number] TYPE AND SCREEN Collected: 03/28/2018 Status: F Source: [place] 4:16 PM [facility] REPOSITORY Order Comment: Reason for Type AND Screen/Red Cells: TYPE CODE TESTS RESULT OUT OF RANGE REFERENCE UNITS LAB B10.0800 O Normal BLOOD TYPE GEL POSITIVE LAB B100.4000 Normal Antibody NEGATIVE Screen Performed By: #### B101.7450, L509.4000, L3890.6005 #### [facility] [address] [place], [place], [address] #### L3100.0390 #### [facility] (refer to report for specific site) refer to report for address and phone number RUBELLA IGG Collected: 03/28/2018 Status: F Source: [place] 4:16 PM [facility] REPOSITORY TYPE CODE TESTS RESULT OUT OF RANGE REFERENCE UNITS LAB L509.4000 IU/mL Normal Rubella IgG 232.1 Result Comment: Antibody results Interpretation of Immune Status < 5 IU/ml Presumed Non-immune 5 - < 10 IU/ml Equivocal > or = 10 IU/ml Presumed Immune Performed By: #### B101.7450, L509.4000, L3890.6005 #### [facility] [address] [place], [address] #### L3100.0390 #### [facility] (refer to report for specific site) refer to report for address and phone number HIV - [facility] Collected: 03/28/2018 Status: F Source: [place] 4:16 PM [facility] REPOSITORY TYPE CODE TESTS RESULT OUT OF RANGE REFERENCE UNITS LAB L3890.6005 Nonreactive Normal HIV - [facility] Non-Reactive Performed By: #### B101.7450, L509.4000, L3890.6005 #### [facility] [address] [place], [address] #### L3100.0390 #### [facility] (refer to report for specific site) refer to report for address and phone number HEPATITIS B SURFACE Collected: 03/28/2018 Status: F Source: [place] AG 4:16 PM [facility] REPOSITORY TYPE CODE TESTS RESULT OUT OF RANGE REFERENCE UNITS LAB L3100.0400 Negative Normal HB Negative SURF AG Result Comment: Performed at: [facility] [id number] Sheep Killer: David Dorman PhD, Phone: [phone] Performed By: #### B101.7450, L509.4000, L3890.6005 #### [facility] [place], [address] #### L3100.0390 #### [facility] (refer to report for specific site) refer to report for address and phone number RAPID PLASMIN REAGIN Collected: 03/28/2018 Status: F Source: [place] (RPR) 4:16 PM [facility] REPOSITORY TYPE CODE TESTS RESULT OUT OF REFERENCE UNITS RANGE LAB L700.5000 NONREACTIVE NONREACTIVE Normal RPR Performed By: #### L700.5000 #### [facility] [address] [place], [place] [address]. [place], [address] BRO[employer]LOOM WEAVER OFFICE VISIT Observed: 03/28/2018 Status: F Source: [place] REPORT 4:08 PM [facility] REPOSITORY [facility] [address] [place], [place] [address] OFFICE VISIT Date of Service: 03/28/18 MR#: [id number] Acct: [id number] Name: LLUVIA OREILLY Rep #: [id number] : 1990 Provider: Claire Torres MD Age/Sex: 27/F Location: [facility] Status: Signed Intake Vital Signs03/28/18 Height 5 ft 1 in 03/28/18 Weight: 132 lb 6 oz 03/28/18 Body Mass Index (BMI) 25.0 03/28/18 Blood Pressure 121/63 Intake Visit Reasons: 16 week ob Casting Supervisor Required: No Is patient in pain?: No Allergies latex Adverse Reaction (Verified 03/28/18 15:52) Rash Medications vitamin,calcium,avnzcsvc-yfgl-sytfq acid tablet 1 tab PO QDAY 02/28/18 [History Confirmed 03/28/18] Last Menstral Period: 11/30/17 Zika: Zika virus screening: Negative PFSH PFS Social History Smoking Status: Never smoker alcohol intake: never substance use type: does not use caffeine: Yes what type of physical activity do you participate in: walking seatbelt use: always do you feel safe at home: Yes additional social history: Solitario Duckworthoster Gab 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 DatName [place]/WeeksOutcome Route [facility] LocaProviderFOB e ht en ia tn Unknown 2015 Leo40 live birNSVD 8lbs 2 oMale Kennedy n - ful unces l term HPI 16 week ob: Details: LLUVIA OREILLY is a 27 year old who presents for routine OB visit. OB Visit DELMI Calculator Estimated Delivery Date 09/06/18 Based on LMP (certain) 11/30/17 Current WG 16w 6d Number 1 Expected Delivery Route/Plan Specific Issue/Plans flu vaccine: [] minichart given: [] tdap vaccine: [] rhogam: [] LARC form signed: [] labor support person: [] pain management: [] cut cord/dad catch: [] : [] PP control planned: [] special requests: [] Initial Weight: 129 lb Date Weight BP Urine PFHR FuHt Pres MCTX DilatioFetal SVisit NProvideComment rot ov n t ote r s EGA Ef Gluco faced se 02/28/1129 lb 114/59 8 4 oz (+ 124 oz) w 6d Visit Notes Visit Date: 03/28/18 no vb cramping Claire Torres MD on 03/28/18 Visit Date: 02/28/18 No visit notes to display ACOG First Trimester First Trimester: Desire for , Alcohol, Tobacco Cessation, Illicit/Recreational Drug/Substance Use, Intimate Partner Violence, Barriers to care, Unstable Housing, Communication Barriers, Environmental/Work Hazards, Anticipated Course of Care, Toxoplasmosis Precations, Use of Any medications, Sexual activity, Exercise, Dental Care, Sauna/Hot tub use, Seat Belt use, Childbirth classes/Hospital facilities, , Travel, Indications for US and Screening for Aneuploidy Diagnostics Diagnostics Labs Blood Type O POSITIVE 03/14/16 Antibody Screen NEGATIVE 03/14/16 Hct 39.0 % (37-47) 03/14/16 Hgb 13.2 g/dl (12.0-15.0) 03/14/16 Chlam trachomat DNA PCR Negative (Negative) 02/28/18 N.gonorrhoeae DNA (PCR) Negative (Negative) 02/28/18 Rhogam given: No 03/16/16 Details: HIV: Urine Culture: Sequential Screen: NIPT Screen: Results [id number] Office Urine Glucose Negative Last Edit by Joselin Robbins on 03/28/18 15:51 Office Urine Protein Negative Last Edit by Joselin Robbins on 03/28/18 15:51 Assessment AND Plan Problems 1. Encounter for supervision of other normal in second trimester Z34.82 DELMI 09/06/18 PC Lauro Adonis Plan Orders placed: us getting labs drawn today ACOG trimester education reviewed and updated. see problem list details for updated plan management information. [place] appropriate handout given. Orders Orders: Coding Level of Care Code OB Routine Diagnoses Encounter for supervision of other normal in second trimester Z34.82 Normal : other normal Trimester: second trimester 03/28/18 1608 <Electronically signed by Claire Torres MD> Date Claire Torres MD Cosigner Signature: Date (if applicable) CC: BROADLOOM WEAVER OFFICE VISIT Observed: 03/07/2018 Status: F Source: [place] REPORT 11:04 PM [facility] [address] [place] [address] OFFICE VISIT Date of Service: 02/28/18 MR#: [id number] Acct: [id number] Name: LLUVIA OREILLY Rep #: [id number] : 1990 Provider: Claire Torres MD Age/Sex: 27/F Location: [facility] Status: Signed Intake Vital Signs02/28/18 Height 5 ft 1 in 02/28/18 Weight: 129 lb 4 oz 02/28/18 Body Mass Index (BMI) 24.4 02/28/18 Blood Pressure 114/59 Intake Visit Reasons: NOB - 9 WEEKS Chief Complaint: NEW OB Casting Supervisor Required: No Is patient in pain?: No Allergies latex Adverse Reaction (Verified 02/28/18 16:25) Rash Medications vitamin,calcium,qgeqxebq-kxvz-uilyo acid tablet 1 tab PO QDAY 02/28/18 [History Confirmed 02/28/18] Last Menstral Period: 12/05/17 Zika: Zika virus screening: Negative : No PFSH PFSH Social History Smoking Status: Never smoker alcohol intake: never substance use type: does not use caffeine: Yes what type of physical activity do you participate in: walking seatbelt use: always do you feel safe at home: Yes additional social history: Solitario De Guzman 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 DatName [place]/WeeksOutcome Route [facility] A[facility] Hernandez LgAnestheTamiel LocaProviderFOB e ht en ia tn Unknown 2015 Leo40 live birNSVD 8lbs 2 oMale Kennedy n - ful unces l term HPI NOB - 9 WEEKS: Details: LLUVIA OREILLY is a 27 year old who presents for New OB visit. OB Visit DELMI Calculator Estimated Delivery Date 09/06/18 Based on LMP (certain) 11/30/17 Current WG 13w 6d Number 1 Comments: viable IUP with fht 160 consistent with LMP Expected Delivery Route/Plan Specific Issue/Plans flu vaccine: [] minichart given: [] tdap vaccine: [] rhogam: [] LARC form signed: [] labor support person: [] pain management: [] cut cord/dad catch: [] : [] PP control planned: [] special requests: [] Initial Weight: 129 lb Date Weight BP Urine PrFHR FuHt Pres MoCTX DilationFetal StVisit NoProviderComments E ot v te GA G Effac lucose ed Menstrual History Last Menstral Period: 12/05/17 Reported LMP: definite Normal amount/duration: Yes On hormonal BC at conception: No Antepartum Record Genetic Screening: Congenital Heart Defect: Other, Neural Tube Defect: Other, Hemoglobinopathy Or Carrier: Other, Cystic Fibrosis: Other, Chromosome Abnormality: Other, Silvano-Sachs: Other, Hemophilia: Other, Intellectual Disability/Autism: Other, Recurrent Loss/Stillbirth: Other, Other Structural Defect: Other, Other Genetic Disease: Other, Maternal Metabolic Disorder: Other Infection History: Live with someone with TB or Exposed to TB: No, Patient or Partner has history of Genital Herpes: No, Rash or Viral illness since last mentrual period: No, Prior GBS-Infected child: No, History of STD: No, HIV Infection: No, History of Hepatitis: No, Recent travel outside of [place]: No, Concern for Hep exposure: No, Varicella immune: Yes Medical History Medical History: Positive: Depression/ depression (6 months of treatment), Negative: Diabetes, Hypertension, Heart disease, Auto-immune disorder, Kidney disease/UTI, Neurologic/epilepsy, Psychiatric, Hepatitis/liver disease, Varicosities/phlebitis, Thyroid dysfunction, Trauma/domestic violence, History of blood transfusions, D (Rh) Sensitized, Pulmonary (e.g.,TB,Asthma), Seasonal allergies, Drug/latex allergies/reactions, Breast, Network Operations Lead surgery, Operations/hospitalizations, Anesthetic complications, History of abnormal pap, Uterine anomaly/magdiel, Infertility, Anti-retroviral treatment, Relevant family history, Other ACOG First Trimester First Trimester: Desire for , Alcohol, Tobacco Cessation, Illicit/Recreational Drug/Substance Use, Intimate Partner Violence, Barriers to care, Unstable Housing, Communication Barriers, Environmental/Work Hazards, Anticipated Course of Care, Nurtrition and weight gain, Toxoplasmosis Precations, Use of Any medications, Sexual activity, Exercise, Dental Care, Sauna/Hot tub use, Seat Belt use, Childbirth classes/Hospital facilities, , Travel, Indications for [place] and Screening for Aneuploidy ROS Const Denies fever(s), Reports system reviewed and no additional complaints, except as docu, Reports fatigue Eyes Reports system reviewed and no additional complaints, except as docu ENT Reports system reviewed and no additional complaints, except as docu Card Denies chest pain, Denies shortness of breath Resp Reports system reviewed and no additional complaints, except as docu, Denies shortness of breath, Denies cough GI Reports nausea, Denies abdominal pain Reports system reviewed and no additional complaints, except as docu Musc Reports system reviewed and no additional complaints, except as docu Skin/Breast Reports system reviewed and no additional complaints, except as docu Neuro Yes system reviewed and no additional complaints, except as docu Psych Reports system reviewed and no additional complaints, except as docu Endo Reports fatigue, Reports system reviewed and no additional complaints, except as docu Exam Const General: healthy appearing, comfortable, no acute distress Orientation: alert [facility] Head: normal to inspection, atraumatic, normocephalic Ears: external ears normal, hearing grossly normal bilaterally Nose: nares normal, external nose normal Mouth: oral mucosae normal Teeth and gingiva: dentition normal Eyes General: appearance normal, both eyes and all related structures Neck Neck: no lymphadenopathy, supple, normal visual inspection Thyroid: thyroid normal Chest Chest palpation AND inspection: normal inspection of the chest Breast inspection: normal inspection of the breasts, normal inspection of the axillae Breast palpation: normal palpation of the breasts, normal palpation of the axillae Resp Effort AND Inspection: normal respiratory effort GI Inspection: normal to inspection Palpation: soft, no hepatosplenomegaly General: bladder normal to palpation External Female Exam: normal external appearance, normal appearance of the urethra Urethra: normal appearance of the urethra Speculum Exam - Vagina: normal appearance of the vagina, normal vaginal discharge Speculum Exam - Cervix: normal appearance of the cervix Bimanual Exam- Vagina AND Uterus: bladder normal to palpation, normal bimanual exam, uterus non-tender, other Bimanual Exam- Adnexa, other: adnexae non-tender Skin General: no rashes or lesions noted Neuro Motor: muscle tone normal throughout, no movement abnormalities noted Extrem General: normal to inspection, full ROM Assessment AND Plan Problems 1. Encounter for supervision of other normal in first trimester Z34.81 DELMI 09/06/18 PC Lauro Adonis Plan Orders placed: new ob labs ACOG trimester education reviewed and updated. see problem list details for updated plan management information. GA appropriate handout given. Orders Orders: Supplemental Info ACOG book given and patient encouraged to read about nutrition, exercise, weight gain, and food avoidance in . Coding Level of Care Code OB Routine Diagnoses Encounter for supervision of other normal in first trimester Z34.81 Normal : other normal Trimester: first trimester 03/07/18 2304 <Electronically signed by Claire Torres MD> Date Claire Torres MD Cosigner Signature: Date (if applicable) CC: CT/NG WCH BY PCR Collected: 02/28/2018 Status: F Source: [place] 4:20 PM [facility] REPOSITORY TYPE CODE TESTS RESULT OUT OF RANGE REFERENCE UNITS LAB L8200.2100 Negative Normal Chlam Negative Trac PCR LAB L8200.2200 Negative Normal NG by Negative PCR Performed By: #### L8200.1999, M100.0650 #### [facility] [address] [place], [address] Observed: 02/28/2018 Status: F Source: [place] CULTURE, URINE 4:20 PM [facility] REPOSITORY Urine Culture Probable contaminants. ORGANISM 1: Mixed Gram Positive Organisms Breese Count 25,000-50,000 Performed By: #### L8200.1999, M100.0650 #### [facility] [address] [place], [address] PAP I-G W/RFX Collected: 02/28/2018 Status: F Source: [place] HRHPV-APTIMA 4:20 PM [facility] REPOSITORY Order Comment: CYTOLOGY INFORMATION: - CLINICAL INFORMATION: HYSTERECTOMY - DATE LMP/MENOPAUSE: LMP - COLLECTION VIAL: Thin Prep Vial - SKIN CARVER SOURCE: CERVICAL/ENDOCERVICAL - COLLECTION TECHNIQUE: CX BROOM ONLY Specimen Comment: [id number] Specimen Comment: No. of containers..01 ThinPrep Vial TYPE CODE TESTS RESULT OUT OF REFERENCE UNITS RANGE LAB L7400.0800 . High DIAGN Comment Result Comment: EPITHELIAL CELL ABNORMALITY. ATYPICAL SQUAMOUS CELLS OF UNDETERMINED SIGNIFICANCE. LAB L7400.0900 . Normal ADEQ Comment Result Comment: Satisfactory for evaluation. Endocervical and/or squamous metaplastic cells (endocervical component) are present. LAB L7400.1300 . High RECOMM Comment Result Comment: Suggest follow up as clinically appropriate. LAB L7400.1400 . Normal PERFORM Comment Result Comment: Errol Mercado Rn Ortho (ASCP) LAB L7400.1700 . Normal SIGN Comment Result Comment: Elvis Cruz MD, Pathologist LAB L7400.1720 . Normal Path prov. Comment ICD9 Result Comment: R87.610 LAB L7400.2575 . Normal TEST METHOD Comment Result Comment: This liquid based ThinPrep(R) pap test was screened with the use of an image guided system. LAB L7400.2600 . Normal . COMM LAB L7400.2700 . Normal PAPSMR Comment Result Comment: The Pap smear is a screening test designed to aid in the detection of premalignant and malignant conditions of the uterine cervix. It is not a diagnostic procedure and should not be used as the sole means of detecting cervical cancer. Both false-positive and false-negative reports do occur. LAB L7400.2760 Negative Normal HPV APTIMA, Negative HR Result Comment: This test detects fourteen high-risk HPV types (16/18/31/33/35/39/45/ 51/52/56/58/59/66/68) without differentiation. Performed at: [address], [id number] Sheep Killer: Winter Peacock MD, Phone: [phone] Performed at: =G - [facility] [address] [place], [place] [id number] Sheep Killer: Winter Peacock MD, Phone: [phone] LAB J1852.7983 . Normal HPV RFLX Comment Result Comment: See below for HPV testing results. Performed By: #### L7400.0353 #### [facility] (refer to report for specific site) refer to report for address and phone number D DIMER Collected: 02/20/2018 Status: F Source: [place] 3:58 PM [facility] REFERENCE REPOSITORY TYPE CODE TESTS RESULT OUT OF RANGE REFERENCE UNITS LAB DDMER(LOINC <500 ng/mL FEU ) D dimer 260 CBC AND DIFFERENTIAL Collected: 02/20/2018 Status: F Source: [place] 3:58 PM [facility]FERENCE REPOSITORY TYPE CODE TESTS RESULT OUT OF REFERENCE UNITS RANGE LAB WBC(LOINC) 3.70-11.00 k/uL WBC 8.29 LAB RBC(LOINC) 3.90-5.20 m/uL RBC 4.66 LAB HGB(LOINC) 11.5-15.5 g/dL Hemoglobin 13.4 LAB HCT(LOINC) 36.0-46.0 % Hematocrit 41.3 LAB MCV(LOINC) 80.0-100.0 fL MCV 88.6 LAB MCH(LOINC) 26.0-34.0 pG MCH 28.8 LAB MCHC(LOINC 30.5-36.0 g/dL ) MCHC 32.4 LAB RDWCV(LOIN 11.5-15.0 % C) RDW-CV 12.6 LAB PLTCT(LOIN 150-400 k/uL C) Platelet Count 199 LAB MPV(LOINC) 9.0-12.7 fL MPV High 12.8 LAB ANEUT(LOIN % C) Neut% 71.5 LAB AANEUT(OCTAVIO 1.45-7.50 k/uL NC) Abs Neut 5.93 LAB ALYMP(LOIN % C) Lymph% 19.1 LAB AALYMP(OCTAVIO 1.00-4.00 k/uL NC) Abs Lymph 1.58 LAB AMONO(LOIN % C) [place]% 7.6 LAB AAMONO(OCTAVIO <0.87 k/uL NC) Abs [place] 0.63 LAB AEOS(LOINC % ) Eosin% 1.2 LAB AAEOS(LOIN <0.46 k/uL C) Abs Eosin 0.10 LAB ABASO(LOIN % C) Baso% 0.6 LAB AABASO(OCTAVIO <0.11 k/uL NC) Abs Baso 0.05 LAB AUNRBC(OCTAVIO 0 /100 WBC NC) NRBCs 0.0 LAB ABNRBC(OCTAVIO <0.01 k/uL NC) Absolute nRBC <0.01 LAB DTYP(LOINC ) DTYPE ADIFF BASIC METABOLIC PANL Collected: 02/20/2018 Status: F Source: [place] 3:58 PM [facility] REFERENCE REPOSITORY TYPE CODE TESTS RESULT OUT OF REFERENCE UNITS RANGE LAB GLU(LOINC) 74-99 mg/dL Glucose 90 LAB BUN(LOINC) 7-21 mg/dL BUN 11 LAB CRET(LOINC 0.58-0.96 mg/dL ) Creatinine 0.60 LAB NA(LOINC) 136-144 mmol/L Low Sodium 134 LAB K(LOINC) 3.7-5.1 mmol/L Potassium 4.1 LAB CL(LOINC) 97-105 mmol/L Chloride 98 LAB CO2(LOINC) 22-30 mmol/L Low CO2 18 LAB AGAP(LOINC 9-18 mmol/L ) Anion Gap 18 LAB CA(LOINC) 8.5-10.2 mg/dL Calcium, Total 9.7 LAB GFRAA(LOIN C) eGFR- >60 Amer. LAB GFRNAA(OCTAVIO . NC) eGFR-All Other Races >60 HCG, QUANTITATIVE BL Collected: 02/20/2018 Status: F Source: [place] 3:58 PM CLINIC REFERENCE REPOSITORY TYPE CODE TESTS RESULT OUT OF REFERENCE UNITS RANGE LAB HCGQT(LOIN <5.0 mU/mL C) HCG, [place] Bl 48471.0 ALLERGIES ALLERGIES DATE TYPE / CODE NAME / CODE REACTION SEVERITY SOURCE 2018 Drug latex/D64468 Rash Unknown [facility] Allergy/4160 8921(RXNORM) Hospital 92534(SNOMED Repository CT) ENCOUNTERS ENCOUNTERS ADMIT/DISCHARGE ACCOUNT ADMITTING ENCOUNTER LOCATION SOURCE NUMBER CLASS 2018 [id number] Marcanthony, Ambulatory BMSBuilding:B [place] 5 Claire MS.CF[facility] Hospital Repository 2018 [id number] Ambulatory BMSBuilding:W [place] 2 [facility] Repository 08/30/2018/ [id number] Melissa, Inpatient Sravan Sravan 8 6 Claire Encounter [facility] ing:WPRoom: Repository EC571Vqw: 1 08/30/2018/ [id number] Ambulatory BMSBuilding:B [place] [address] [facility] Repository 08/28/2018/ [id number] Ambulatory [place] Sravan 8 9 [facility] ing:WPOUTRoom Repository : [id number] 08/26/2018 [id number] Ambulatory [place] Sravan 7 [facility] ing:LABSPEC Repository 08/26/2018/ [id number] Ambulatory BMSBuilding:B Sravan [address] Repository 08/23/2018/ [id number] Ambulatory BMSBuilding:B Sravan [address] Repository 08/16/2018 [id number] Ambulatory [place] 1 [facility] ing:LABSPEC Repository 08/16/2018/ [id number] Ambulatory BMSBuilding:B Sravan [address] Repository 07/31/2018/ [id number] Ambulatory BMSBuilding:B [place] 8 5 MS.[facility] Hospital Repository 07/29/2018/ [id number] Emergency Sravan [place] 8 8 [facility] Hospital ing:ED Repository 07/17/2018/ [id number] Ambulatory BMSBuilding:B [place] [address] Repository 07/03/2018/ [id number] Ambulatory BMSBuilding:B [place] [address] Repository 06/24/2018 [id number] Ambulatory Sravan Sravan 6 [facility] Hospital ing:US Repository 06/21/2018 [id number] Ambulatory [place] 8 [facility] ing:LABSPEC Repository 06/21/2018/ [id number] Ambulatory BMSBuilding:B [place] 8 6 [facility] Hospital Repository 06/14/2018 [id number] Ambulatory [place] Sravan 0 [facility] Hospital ing:LAB Repository 05/31/2018 [id number] Ambulatory Sravan [place] 2 [facility] Hospital ing:LAB Repository 05/24/2018/ [id number] Ambulatory BMSBuilding:B [place] 8 6 [facility] Hospital Repository 05/17/2018 [id number] Ambulatory BMSBuilding:B Sravan [address] [facility] Repository 05/15/2018 [id number] Ambulatory Sravan [place] 7 [facility] Hospital ing:US Repository 05/03/2018 [id number] Ambulatory [place] Sravan 0 [facility] Hospital ing:LABSPEC Repository 05/03/2018/ [id number] Ambulatory BMSBuilding:B [place] 8 1 MS.[facility] Hospital Repository 04/24/2018/ [id number] Ambulatory BMSBuilding:B [place] 8 8 [facility] Hospital Repository 04/12/2018 [id number] Ambulatory [place] 2 [facility] Hospital ing:OPUS Repository 03/28/2018 [id number] Ambulatory [place] 0 [facility] Hospital ing:POLAB3 Repository 03/28/2018/ [id number] Ambulatory BMSBuilding:B [place] 8 2 [facility] Hospital Repository 02/28/2018 [id number] Ambulatory [place] 9 [facility] Hospital ing:LABSPEC Repository 02/28/2018/ [id number] Ambulatory BMSBuilding:B [place] 8 8 [facility] Hospital Repository PAYERS PAYERS ENCOUNTER GUARANTOR PAYER SUBSCRIBER SOURCE 2018 LLUVIA Bess NOT GIVENUNK [place] [id number] Insurance:SELF PAY [place], [place] Number: Effective Repository [id number]: 330) Date:[phone] () 2018 LLUVIA Duckworthoster [id number] Insurance:MOLINAPolic CROSKEYDOB: Community INDUSTRIAL y Number: [id number] [id number] Repository [address]Erv: (330) Date:0625-68-18LO [phone] () [address] [place] [address] 91308PF: 2018 Secondary NOT GIVENUNK Sravan Insurance:SELF PAY [facility]: Effective Repository Date:2018 2018 LLUVIA MARX Primary LLUVIA Hinson [id number] Insurance:MOLINAPolic CROSKEYDOB: Community INDUSTRIAL y Number: [id number] [id number] Repository [address]Kma: (330) Date:1817-19-04RC [phone] () [address] [place] [address] 48983VP: 2018 Secondary NOT GIVENUNK Sravan Insurance:SELF PAY [facility] Number: Effective Repository Date:2018-08-16 2018 LLUVIA MARX Primary LLUVIA Hinson [id number] Insurance:MOLINAPolic CROSKEYDOB: Community INDUSTRIAL y Number: [id number] [place], [place] [id number] Repository 00183Ilx: (330) Date:0542-75-64CP [phone] () [address] [place] [address] 61087QR: 2018 Secondary NOT GIVENUNK [place] Insurance:SELF PAY [facility] Number: Effective Repository Date:2018-08-29 08/28/2018 LLUVIA MARX Primary LLUVIA Hinson [id number] Insurance:MOLINAPolic CROSKEYDOB: Community INDUSTRIAL y Number: [id number] [place], [place] [id number] Repository [address]Gka: ([phone]) Date:3842-44-14MJ [phone] () [address] [place] [address] 51097IF: 08/28/2018 Secondary NOT GIVENUNK [place] Insurance:SELF PAY [facility] Number: Effective Repository Date:2018-08-28 08/26/2018 LLUVIA E Primary LLUVIA E [place] [id number] Insurance:MOLINAPolic CROSKEYDOB: Community INDUSTRIAL y Number: [id number] [place], [place] [id number] Repository [address]Ktd: (304) Date:5868-05-05KN [phone] () [address] [place] [address] 23541TQ: 08/26/2018 Secondary NOT GIVENUNK [place] Insurance:SELF PAY [facility] Number: Effective Repository Date:2018-08-26 08/26/2018 LLUVIA E Primary LLUVIA E [place] [id number] Insurance:MOLINAPolic CROSKEYDOB: Community INDUSTRIAL y Number: [id number] [place], [place] [id number] Repository [address]Imf: (330) Date:1068-95-48SE [phone] () [address] [place] [address] 82637MR: 08/26/2018 Secondary NOT GIVENUNK [place] Insurance:SELF PAY [facility] Number: Effective Repository Date:2018-08-26 08/23/2018 LLUVIA E Primary LLUVIA E Sravan [id number] Insurance:MOLINAPolic CROSKEYDOB: Community INDUSTRIAL y Number: [id number] [place], [place] [id number] Repository 408[address]Zue: 330) Date:9928-20-13XR [phone] () [address] [place] [address] 87883VI: 08/23/2018 Secondary NOT GIVENUNK Sravan Insurance:SELF PAY [facility] Number: Effective Repository Date:2018-08-23 08/16/2018 LLUVIA E Primary LLUVIA E [place] [id number] Insurance:MOLINAPolic CROSKEYDOB: Community INDUSTRIAL y Number: [id number] [place], [place] [id number] Repository [address]Mye: (432) Date:7735-72-61QC [phone] () [address] [place] [address] 94468QS: 08/16/2018 Secondary NOT GIVENUNK [place] Insurance:SELF PAY [facility] Number: Effective Repository Date:2018-08-16 08/16/2018 LLUVIA E Primary LLUVIA E Sravan [id number] Insurance:MOLINAPolic CROSKEYDOB: Community INDUSTRIAL y Number: [id number] [place], [place] [id number] Repository 56[address]Pzv: (330) Date:2930-39-02LQ [phone] () [address] [place] [address] 87556DT: 08/16/2018 Secondary NOT GIVENUNK Sravan Insurance:SELF PAY [facility] Number: Effective Repository Date:2018-08-16 07/31/2018 LLUVIA E Primary LLUVIA E Sravan [id number] Insurance:MOLINAPolic CROSKEYDOB: Community INDUSTRIAL y Number: [id number] [place], [place] [id number] Repository [address]Ene: (330) Date:7549-07-11WU [phone] () [address] [place] [address] 59211VP: 07/31/2018 Secondary NOT GIVENUNK [place] Insurance:SELF PAY [facility] Number: Effective Repository Date:2018-07-17 07/29/2018 LLUVIA E Primary LLUVIA E Sravan [id number] Insurance:MOLINAPolic CROSKEYDOB: Community INDUSTRIAL y Number: [id number] [place], [place] [id number] Repository [address]86Xmn: (330) Date:5197-61-24HO [phone] () [address] [place] [address] 48718OG: 07/29/2018 Secondary NOT GIVENUNK Sravan Insurance:SELF PAY [facility] Number: Effective Repository Date:2018-07-29 07/17/2018 LLUVIA E Primary LLUVIA E Sravan [id number] Insurance:MOLINAPolic CROSKEYDOB: Community INDUSTRIAL y Number: [id number] [place], [place] [id number] Repository 84569Ndp: (330) Date:3987-23-36MZ [phone] () [address] [place] [address] 17554IH: 07/17/2018 Secondary NOT GIVENUNK [place] Insurance:SELF PAY [facility] Number: Effective Repository Date:2018-07-17 07/03/2018 LLUVIA E Primary LLUVIA E Sravan [id number] Insurance:MOLINAPolic CROSKEYDOB: Community INDUSTRIAL y Number: [id number] [place], [place] [id number] Repository [address]Btp: (330) Date:9684-21-67FS [phone] () [address] [place] [address] 37536MO: 07/03/2018 Secondary NOT GIVENUNK [place] Insurance:SELF PAY [facility] Number: Effective Repository Date:2018-07-03 06/24/2018 LLUVIA E Primary LLUVIA E Sravan [id number] Insurance:MOLINAPolic CROSKEYDOB: Community INDUSTRIAL y Number: [id number] [place], [place] [id number] Repository 214[address]Ypq: (330) Date:4413-49-47MI [phone] () [address] [place] [address] 81738ZP: 06/24/2018 Secondary NOT GIVENUNK [place] Insurance:SELF PAY [facility] Number: Effective Repository Date:2018-05-24 06/21/2018 LLUVIA E Primary LLUVIA E Ferris [id number] Insurance:MOLINAPolic CROSKEYDOB: Community INDUSTRIAL y Number: [id number] [place], [place] [id number] Repository [address]Psl: ([phone]) Date:6119-03-70RY [phone] () [address] [place] [address] 07956JF: 06/21/2018 Secondary NOT GIVENUNK Sravan Insurance:SELF PAY [facility] Number: Effective Repository Date:2018-06-21 06/21/2018 LLUVIA E Primary LLUVIA E Ferris [id number] Insurance:MOLINAPolic CROSKEYDOB: Community INDUSTRIAL y Number: [id number] [place], [place] [id number] Repository [address]Mui: (330) Date:7154-32-30LZ [phone] () [address] [place] [address] 42881FE: 06/21/2018 Secondary NOT GIVENUNK [place] Insurance:SELF PAY [facility] Number: Effective Repository Date:2018-06-21 06/14/2018 LLUVIA E Primary LLUVIA E Sravan [id number] Insurance:MOLINAPolic CROSKEYDOB: Community INDUSTRIAL y Number: [id number] [place], [place] [id number] Repository [address]900Vnu: (330) Date:9318-90-69PP [phone] () [address] [place] [address] 45543YC: 06/14/2018 Secondary NOT GIVENUNK Sravan Insurance:SELF PAY [facility] Number: Effective Repository Date:2018-06-04 05/31/2018 LLUVIA E Primary LLUVIA E Sravan [id number] Insurance:MOLINAPolic CROSKEYDOB: Community INDUSTRIAL y Number: [id number] [place], [place] [id number] Repository 81894Trl: (330) Date:3225-28-43CZ [phone] () [address] [place] [address] 13141KM: 05/31/2018 Secondary NOT GIVENUNK Sravan Insurance:SELF PAY [facility] Number: Effective Repository Date:2018-05-31 05/24/2018 LLUVIA E Primary LLUVIA E Sravan [id number] Insurance:MOLINAPolic CROSKEYDOB: Community INDUSTRIAL y Number: [id number] [place], [place] [id number] Repository 68[address]Ilv: (330) Date:1393-28-39QR [phone] () [address] [place] [address] 69835NP: 05/24/2018 Secondary NOT GIVENUNK Sravan Insurance:SELF PAY [facility] Number: Effective Repository Date:2018-05-24 05/17/2018 LLUVIA Curtis Primary LLUVIA E Sravan [id number] Insurance:MOLINAPolic CROSKEYDOB: Community INDUSTRIAL y Number: [id number] Brook, [place] [id number] Repository [address]93Aij: (330) Date:7600-32-52ET [phone] () [address] [place] [address] 64812DE: 05/17/2018 Secondary NOT GIVENUNK Sravan Insurance:SELF PAY [facility] Number: Effective Repository Date:2018-05-17 05/15/2018 LLUVIA Acevedo Primary LLUVIA E [place] [id number] Insurance:MOLINAPolic CROSKEYDOB: Community INDUSTRIAL y Number: [id number] [place], [place] [id number] Repository 39[address]Wnh: (330) Date:2484-94-27HT [phone] () [address] [place] [address] 08089TZ: 05/15/2018 Secondary NOT GIVENUNK Sravan Insurance:SELF PAY [facility] [facility] [place] Number: Effective Repository Date:2018-04-15 05/03/2018 LLUVIA MARX Primary LLUVIA MARX Ferris [id number] Insurance:MOLINAPolic CROSKEYDOB: Community INDUSTRIAL y Number: [id number], [place] [id number] Repository [address]Yaf: ([phone]) Date:3946-68-11[phone] () [address] [place] [address] 29102FF: 05/03/2018 Secondary NOT GIVENUNK Ferris Insurance:SELF PAY [facility] [place] Number: Effective Repository Date:2018-05-03 05/03/2018 LLUVIA MARX Primary LLUVIA MARX Sravan [id number] Insurance:MOLINAPolic CROSKEYDOB: Community INDUSTRIAL y Number: [id number], [place] [id number] Repository [address]Scy: ([phone]) Date:[id number] [phone] () [address] [place] [address] [id number]: 05/03/2018 Secondary NOT GIVENUNK Sravan Insurance:SELF PAY [facility] [place] Number: Effective Repository Date:2018-05-03 04/24/2018 LLUVIA MARX Primary LLUVIA Hinson [id number] Insurance:MOLINAPolic CROSKEYDOB: Community INDUSTRIAL y Number: [id number] [place], [place] [id number] Repository [address]Urj: ([phone]) Date:5048-55-48PC [phone] () [address] [place] [address] 73783SV: 04/24/2018 Secondary NOT GIVENUNK Ferris Insurance:SELF PAY [facility] [place] Number: Effective Repository Date:2018-04-24 04/12/2018 LLUVIAKARAN MARX Primary LLUVIA Hinson [id number] Insurance:MOLINAPolic CROSKEYDOB: Community INDUSTRIAL y Number: [id number] [place], [place] [id number] Repository 33[address]Trt: ([phone]) Date:[id number] [phone] () [address] [place] [address] 74685LY: 04/12/2018 Secondary NOT GIVENUNK Ferris Insurance:SELF PAY [facility] [place] Number: Effective Repository Date:2018-03-29 03/28/2018 LLUVIA MARX Primary LLUVIA Hinson [id number] Insurance:MOLINAPolic CROSKEYDOB: Community INDUSTRIAL y Number: [id number] [place], [place] [id number] Repository [address]Dpw: ([phone]) Date:0067-59-49[phone] () [address] [place] [address] 31177DQ: 03/28/2018 Secondary NOT GIVENUNK Ferris Insurance:SELF PAY [facility] [place] Number: Effective Repository Date:2018-03-28 03/28/2018 LLUVIA MARX Primary LLUVIA Hinson [id number] Insurance:MCCLOUD CROSKEYDOB: Community INDUSTRIAL [facility] Number: [id number] [place], [place] [id number] Repository 277[address]Qwx: (330) Date:[id number] [phone] () [address] [place] [address] 84488JD: 03/28/2018 Secondary NOT GIVENUNK Sravan Insurance:SELF PAY [facility] [place] Number: Effective Repository Date:2018-03-28 02/28/2018 LLUVIA MARX Primary LLUVIA Hinson [id number] Insurance:MEDICAIDPol CROSKEYDOB: [facility] ic Number: [id number] [place], [place] [id number] Repository [address]Pxf: ([phone]) Date:2018-02-28 [phone] () 02/28/2018 Secondary NOT GIVENUNK Ferris Insurance:SELF PAY [facility] [place] Number: Effective Repository Date:2018-02-28 02/28/2018 LLUVIA MARX Primary LLUVIA Hinson [id number] Insurance:MEDICAIDPol CROSKEYDOB: [facility] INDUSTRIAL ic Number: [id number] [place], [place] [id number] Repository 729[address]Tos: ([phone]) Date:2018-02-22 [phone] () 02/28/2018 Secondary NOT GIVENUNK Ferris Insurance:SELF PAY [facility] [place] Number: Effective Repository Date:2018-02-28
== END ==
PROVIDERS: Family Provider Family Medicine; PCP Family Medicine; Referring Provider Nurse Practitioner Women's Health; Visit Provider Nurse Practitioner Women's Health
DX: O23.43 Unspecified infection of urinary tract in pregnancy, third trimester (principal); Z3A.00 Weeks of gestation of pregnancy not specified
CPT/HCPCS: 87086; 87088

== ENCOUNTER 2018-08-28 19:29 | Outpatient (CLI) | payer MEDICAID, SELFPAY ==
[2018-08-26 08:36] VITALS: BMI 28.3
[2018-08-28 20:11] VITALS: BMI 29.9
--- NOTE | 2018-08-31 02:25 | OB.TRI.NOTE ---
- Problem List (1) False labor Status: Acute History of Present Illness Date of Service: 08/28/18 Was patient seen by the physician?: No Reason For Visit: R/O, LABOR Final DELMI Source: LMP History of Present Illness: co regular ctx Allergies latex Adverse Reaction (Verified 08/30/18 17:19) Rash NST - FHR Rate Baby A Baseline: 120 Variability:: Moderate Accelerations:: 15 x 15 Decelerations:: None NST Reactive:: Yes FHR Category:: Category I Uterine Activity:: q3-5 Impression/Plan false labor no cervical change dc home labor preacutions
== END 2018-08-28 22:30 | disposition home or self-care (01) ==
LOC: WPOUT 20:00 → WP 20:01
PROVIDERS: Family Provider Family Medicine; PCP Family Medicine; Visit Provider Obstetrics & Gynecology
DX: O47.9 False labor, unspecified (principal); Z3A.00 Weeks of gestation of pregnancy not specified
CPT/HCPCS: 59025; 59050; 99218; G0378

== ENCOUNTER 2018-08-30 17:00 | Inpatient (IN) | payer MEDICAID, SELFPAY ==
[2018-07-31 11:04] VITALS: BMI 28.3
[2018-08-30 14:06] VITALS: BMI 29.9
[2018-08-30 17:18] VITALS: BMI 29.2
[2018-08-30] MEDS: Lactated Ringers 1,000 ML 50 ML IV (17:20)
[2018-08-30 17:48] LABS: Hematocrit 38.4 % (37-47); Hemoglobin 12.8 g/dl (12.0-15.0); Mean Corp Hgb Conc 33.3 g/gl (32-36); Mean Corpuscular Hgb 29.4 pg (27.0-32.0); Mean Corpuscular Volume 88.3 fL (81-99); Mean Platelet Vol. 11.6 fl (6.2-12.0); Platelet Count 162 K/mm3 (150-450); RBC Distribution Width CV 13.5 % (11.6-14.6); Red Blood Count 4.35 M/mm3 (4.2-5.4); White Blood Count 11.9 K/mm3 (4.4-11.0)
[2018-08-30 17:55] LABS: Scan Indicated on CBC? Y/N NO
[2018-08-30] MEDS: Oxytocin 30 units/NS 500 ml 30 UNITS/500 ML IV.SOLN 334 UNITS IV (18:00)
[2018-08-30] MEDS: Oxytocin 30 units/NS 500 ml 30 UNITS/500 ML IV.SOLN 167 UNITS IV (18:30)
[2018-08-30 23:40] VITALS: BP 120/53; PULSE 76; RESP 18; TEMP 36.7
--- NOTE | 2018-08-31 02:03 | PCM.HP.OB ---
- Problem List (1) Active labor at term Status: Acute (2) Elevated glucose tolerance test Status: Acute Comment: 1 elevated value in 3 hr GTT (3) Status: Acute Qualifiers: Comment: genetic, carrier, ntd screening declined. anatomy scan normal. (4) Supervision of normal Status: Acute Qualifiers: Comment: PRR DELMI 09/06/18 boy - Pranav Restrepo Adonis History Date of Admission: 08/30/18 Final DELMI: 09/06/18 Final DELMI Source: LMP Gestational age: 39 Weeks and 1 Days History of this : This is a 28 year-old, at 39 weeks gestational age presents in active labor at 7 8 cm. Patient has had an unconjugated and had her membranes swept today in the office. She admits some vaginal bleeding but denies any loss of fluid and admits good movement. Contractions are every 2-3 minutes. Allergies latex Adverse Reaction (Verified 08/30/18 17:19) Rash Home Medications: Home Medications vitamin,calcium,vqlryvbm-zorl-omxgs acid tablet 1 tab PO QDAY 02/28/18 Nitrofurantoin Macrocrystals [Macrobid] 100 mg PO BID 08/28/18 Smoking Status: Never smoker Alcohol: None Number of Fetus(es): 1 Heart Tracins moderate variability reactive no decelerations category 1 tracing TOCO Analysis: 2-3 minutes History Past Pregnancies: Past Pregnancies previous term vaginal delivery uncomplicated Labs: Mom's Labs & Results 08/30/18 08/30/18 17:20 17:20 WBC 11.9 H RBC 4.35 Hgb 12.8 Hct 38.4 MCV 88.3 MCH 29.4 MCHC 33.3 RDW 13.5 RDW Differential 44.0 H Plt Count 162 MPV 11.6 Blood Type O POSITIVE Antibody Screen NEGATIVE Course Did the patient receive Yes care? Labs Blood Type: O RH: POSITIVE RPR/VDRL/Syphilis Nonreactive Rubella status Immune HbSAg Negative Date Done: 03/28/18 Chlamydia Negative Gonorrhea Negative HIV/AIDS Non-Reactive Group B Strep: Negative Current Obstetrical History Gestational Diabetes No Incompetent Cervix No Infertility No IUGR No Macrosomia No Hypertension/Pre-eclampsia No Placenta Previa/Abruption No PTL/PROM No Uterine anomaly No Oligohydramnios No Polyhydramnios No Multiple gestation No Past Medical History Asthma No Diabetes No Hypertension No Heart disease No Mitral valve prolapse No Neurologic/Seizure disorder/ No Migraines Kidney disease No Liver disease No Varicosities No Clotting disorders/Hx of DVT No Thyroid Dysfunction No Other medical diseases No Psychiatric disorders No Major trauma No Abnormal PAP smear No Sleep apnea No Mammogram in the last 2 years No Social History Marital Status: Alleged father Adonis O[place]illy Hx Smoking No Smoking Status Never smoker How long have you used n/a substances (years)? What date/time did you last n/a use any of the above? Have you had any previous n/a inpatient or outpatient treatment Expected Infant Delivery Method: Spontaneous Vaginal Review of Systems Constitutional: Denies: Fever, Malaise Eyes: Denies: Blurred vision, Vision Change HEENT: Denies: Head Aches, Visual Changes Cardiovascular: Denies: Chest Pain, Palpitations Respiratory: Denies: Cough, Shortness of Breath, Wheezing Gastrointestinal: Reports: Abdominal Pain, Nausea. Denies: Diarrhea, Vomiting Genitourinary: Denies: Dysuria, Hematuria Gynecological: Reports: Vaginal bleeding Musculoskeletal: Denies: Joint Pain, Muscle pain Skin: Denies: Lesions, Rash Neurological: Denies: Blurred vision, Focal weakness, Headaches Psychiatric: Denies: Anxiety, Depression Endocrine: Denies: Heat/ Cold Intolerance Hematologic/ Lymphatic: Denies: Easy Bruising, Easy Bleeding Physical Exam Vitals: Vital Signs Temp Pulse Resp BP 98.1 F 76 18 120/53 L 08/30/18 23:40 08/30/18 23:40 08/30/18 23:40 08/30/18 23:40 General: Alert, Cooperative, No apparent distress HEENT: Atraumatic, Normocephalic. Negative for: Thyromegaly, Lymphadenopathy Cardiovascular: Regular rate Lungs: Normal air movement Abdomen: Soft, Non Tender, Gravid Neurological: Deep Tendon Reflexes 2+/4 and Symmetrical, Neuro grossly intact. Negative for: Clonus MANAGER MATERIALS MANAGEMENT: Normal external genitalia. Negative for: Vulvar lesions Estimated gestational size: Appropriate for gestational size Presentation: Cephalic Assessment/Plan All Active Problems (Last Reviewed 08/30/18 @ 14:06 by Joselin Robbins) Active labor at term (Acute) Elevated glucose tolerance test (Acute) (Acute) Supervision of normal (Acute) Low lying placenta nos or without hemorrhage, second trimester (Resolved) This is a 28 year-old, at 39 weeks gestational age resents in active labor. Patient presented in active labor and proceeded to deliver precipitously after IV was in place and artificial rupture membranes was clear.
--- NOTE | 2018-08-31 02:08 | OP.PCM_ITS ---
- Problem List (1) Active labor at term Status: Acute (2) Elevated glucose tolerance test Status: Acute Comment: 1 elevated value in 3 hr GTT (3) Status: Acute Qualifiers: Comment: genetic, carrier, ntd screening declined. anatomy scan normal. (4) Supervision of normal Status: Acute Qualifiers: Comment: PRR DELMI 09/06/18 gurjit - Pranav Restrepo Adonis Vaginal Delivery Maternal Presentation: Active Labor 28-year-old at 39 weeks presents in active labor 7 8 cm Amniotic Membrane Rupture Type: Artificial Amniotic Fluid Description: Clear Final DELMI: 09/06/18 Gestational age: 39 Weeks and 1 Days Date of Procedure: 08/30/18 Pre-Operative Diagnosis: In active labor Post-Operative Diagnosis: Same Surgery/ Procedure Performed: Spontaneous Vaginal Delivery Type of Anesthesia: None Description of Procedure: Patient began pushing and delivered the head in the JANETH presentation. The head was delivered atraumatically. The anterior and posterior shoulders delivered without complication followed by the rest of the infant and the infant was placed on the maternal abdomen. Delayed cord clamping was employed for approximately 60 seconds. Cord was clamped and cut and gentle traction was a pplied to the cord and the placenta delivered spontaneously immediately following it was noted to be intact with three-vessel cord. The perineum and vagina were inspected and noted to have no laceration. EBL was 100 cc. Patient and infant tolerated delivery well. Presentation: JANETH Placental Delivery Description: Spontaneous Placenta Disposition: [facility] Cord Vessel Description: 3 Vessels Cord Entanglement: None Estimated Blood Loss: 100 A gender: Male Episiotomy Description: None Laceration: None Medications given after delivery: IV Pitocin Complications: None
--- NOTE | 2018-08-31 02:09 | PCM.DCVAG ---
Discharge Diet: No Restrictions Discharge Activity: Return to Normal Activity, May not drive while taking narcotic pain medications., May Shower May resume sexual activity in: 4-6 weeks Call your doctor if your incision/area has: Continuous Slow Oozing, Sudden Increased Bleeding, Increased Pain/ Swelling, Increased Redness, Foul Smelling Discharge Additional Instructions: If you experience any of the following, contact your healthcare provider. Bleeding that soaks a pad every hour for 2 hours Fever 100.4 or higher Unrelieved incision or abdominal pain Swelling, redness, discharge or bleeding from your incision or episiotomy site Your incision begins to separate Problems urinating (including inability to urinate or burning while urinating). Visual changes Severe headache Flu-like symptoms Pain or redness in one of both of your breasts Pain, warmth, tenderness or swelling in your legs, especially the calf area Frequent nausea and vomiting Symptoms of depression or anxiety If you experience any of the following, call 911 or go to the nearest Emergency Room. Chest pain Problems breathing Seizure activity Partial or complete paralysis of a body part, slurred speech, weakness or drooping of the face, or a sudden inability to walk or hold your balance Allergies/Adverse Reactions: Allergies latex Adverse Reaction (Verified 08/30/18 17:19) Rash Medications to take at Discharge vitamin,calcium,zwrvatpn-guzh-lkrqo acid tablet 1 tab PO QDAY 02/28/18 Nitrofurantoin Macrocrystals [Macrobid] 100 mg PO BID 08/28/18 Please Follow Up With: Claire Torres MD - [phone] When: Call to make an appointment with your doctor in 6 weeks. If you had elevated Blood pressure or 4th degree laceration you will need to be seen in 2 weeks. Primary Care Physician: Enio Acosta MD [Primary Care Provider] - Test Results: Test results from this visit will be discussed in further detail at your follow-up appointment, if applicable.
--- NOTE | 2018-08-31 02:10 | DCINST_ITS ---
Discharge Diet: No Restrictions Discharge Activity: Return to Normal Activity, May not drive while taking narcotic pain medications., May Shower May resume sexual activity in: 4-6 weeks Call your doctor if your incision/area has: Continuous Slow Oozing, Sudden Increased Bleeding, Increased Pain/ Swelling, Increased Redness, Foul Smelling Discharge Additional Instructions: If you experience any of the following, contact your healthcare provider. * Bleeding that soaks a pad every hour for 2 hours * Fever 100.4 or higher * Unrelieved incision or abdominal pain * Swelling, redness, discharge or bleeding from your incision or episiotomy site * Your incision begins to separate * Problems urinating (including inability to urinate or burning while urinating). * Visual changes * Severe headache * Flu-like symptoms * Pain or redness in one of both of your breasts * Pain, warmth, tenderness or swelling in your legs, especially the calf area * Frequent nausea and vomiting * Symptoms of depression or anxiety If you experience any of the following, call 911 or go to the nearest Emergency Room. * Chest pain * Problems breathing * Seizure activity * Partial or complete paralysis of a body part, slurred speech, weakness or drooping of the face, or a sudden inability to walk or hold your balance Allergies/Adverse Reactions: Allergies latex Adverse Reaction (Verified 08/30/18 17:19) Rash Medications to take at Discharge vitamin,calcium,gmzzszht-guet-acpdl acid tablet 1 tab PO QDAY 02/28/18 Nitrofurantoin Macrocrystals [Macrobid] 100 mg PO BID 08/28/18 Please Follow Up With: Claire Torres MD - [phone] When: Call to make an appointment with your doctor in 6 weeks. If you had elevated Blood pressure or 4th degree laceration you will need to be seen in 2 weeks. Primary Care Physician: Enio Acosta MD [Primary Care Provider] - Test Results: Test results from this visit will be discussed in further detail at your follow- up appointment, if applicable.
[2018-08-31 04:31] VITALS: BP 117/76; PULSE 82; RESP 16; TEMP 36.7
[2018-08-31 08:00] VITALS: BP 111/57; PULSE 66; RESP 16; TEMP 36.3
[2018-08-31] MEDS: Acetaminophen 500 MG Tablet 1000 MG PO (08:06)
[2018-08-31 13:41] VITALS: BP 112/67; PULSE 60; RESP 16; TEMP 36.9
[2018-08-31 18:00] VITALS: BP 104/57; PULSE 59; RESP 16; TEMP 37.4
--- NOTE | 2018-08-31 20:20 | NURSING ---
2020 Discharged to home with baby. States she feels good and wants to go home today. States they will bring the baby in tomorrow for labs.
== END 2018-08-31 20:15 | disposition home or self-care (01) | DRG 560 ==
PROVIDERS: Admitting Provider Obstetrics & Gynecology; Family Provider Family Medicine; PCP Family Medicine; Referring Provider Obstetrics & Gynecology; Visit Provider Obstetrics & Gynecology
DX: O80 Encounter for full-term uncomplicated delivery (principal); Z3A.39 39 weeks gestation of pregnancy; Z37.0 Single live birth
CPT/HCPCS: 59025; 59050; 85027; 86850; 86900; 99218; J7120; G0378

== ENCOUNTER → 2021-03-10 | Outpatient (CLI) | payer OTHER, SELFPAY ==
[2021-03-10 13:10] VITALS: BMI 29.2
[2021-03-16 11:25] LABS: HPV Reflexed? NOT INDICATED
== END | disposition home or self-care (01) ==
PROVIDERS: PCP Family Medicine; Referring Provider Obstetrics & Gynecology; Visit Provider Obstetrics & Gynecology
DX: Z12.4 Encounter for screening for malignant neoplasm of cervix (principal)
CPT/HCPCS: 88175; G0145

== ENCOUNTER → 2023-09-26 | Outpatient (CLI) | payer BC, MEDICAID, SELFPAY ==
--- OUTSIDE RECORDS SUMMARY | 2023-09-26 17:15 | XMS RPT_ITS | CCD ---
Author Name Unknown Address [address] [place] [address] Organization [facility] Results Test Name Value Interpretation Reference Range Facil ity Summary Purpose Family History No Family History Records FoundNo Family History Records Found Advance Directives No Advanced Directives Records FoundNo Advanced Directives Records Found Additional Source Comments INFORMATION SOURCE (unrecogn ized section and content) DATE CREATED AUTHOR AUTHOR'S SATNAM ATVIGNESH 03/06/2018 [facility] FOR RECORDS PERTAINING TO PATIENTS WHO ARE OR HAVE BEEN ENROLLED IN A CHEMICAL DEPENDENCY/SUBSTANCEABUSE PROGRAM, SOME INFORMATION MAY BE OMITTED. This clinical summary was aggregated from multiple sources. Caution should be exercised in using it in the provision of clinical care. This summary normalizes information from multiple sources, and as a consequence, information in this document may materially change the coding, format and clinical context of patient data. In addition, data may be omitted in some cases. CLINICAL DECISIONS SHOULD BE BASED ON THE PRIMARY CLINICAL RECORDS. [employer] provides no warranty or guarantee of the accuracy or completeness of information in this document.
[2023-10-03 14:09] LABS: HPV APTIMA, High Risk Negative (Negative)
== END | disposition home or self-care (01) ==
LOC: LABSPEC 16:58
PROVIDERS: PCP Family Medicine; Referring Provider Registered Nurse; Visit Provider Registered Nurse
DX: Z12.4 Encounter for screening for malignant neoplasm of cervix (principal)
CPT/HCPCS: 87624; 88175; G0145

== ENCOUNTER 2023-09-28 10:08 | Day surgery (SDC) | payer BC, MEDICAID, SELFPAY ==
[2023-09-28] VITALS (7 sets, daily range): BP systolic 97–115; BP diastolic 57–88; PULSE 81–122; RESP 16; TEMP 36.3–36.8; O2SAT 100; BMI 29.8
--- OUTSIDE RECORDS SUMMARY | 2023-09-28 10:14 | XMS RPT_ITS | CCD ---
Author Name Unknown Address [address] [place] [address] Organization [facility] Results Test Name Value Interpretation Reference Range Facil ity Summary Purpose Family History No Family History Records FoundNo Family History Records Found Advance Directives No Advanced Directives Records FoundNo Advanced Directives Records Found Additional Source Comments INFORMATION SOURCE (unrecogn ized section and content) DATE CREATED AUTHOR AUTHOR'S SATNAM SINGLETON 03/06/2018 [facility] FOR RECORDS PERTAINING TO PATIENTS [...] BE BASED ON THE PRIMARY CLINICAL RECORDS. [employer] provides no warranty or guarantee of the accuracy or completeness of information in this document.
[2023-09-28] MEDS: Doxycycline 100 MG CAPSULE PO (10:54)
[2023-09-28] MEDS: Lactated Ringers 1,000 ML 15 ML IV (10:54)
[2023-09-28 11:20] LABS: Hematocrit 40.5 % (37-47); Mean Corp Hgb Conc 34.6 g/dL (32-36); Mean Corpuscular Hgb 30.2 pg (27.0-32.0); Mean Corpuscular Volume 87.5 fL (81-99); Mean Platelet Vol. 11.6 fl (6.2-12.0); Platelet Count 180 K/mm3 (150-450); RBC Distribution Width SD 41.6 fl (35.1-43.9); Red Blood Count 4.63 M/mm3 (4.2-5.4); White Blood Count 7.1 K/mm3 (4.4-11.0)
--- NOTE | 2023-09-28 12:00 | POC_PTH ---
PATHOLOGY RESULTS PATIENT: LLUVIA MELENDEZ LOC: [facility] U#:[id number] AGE/SX: 33/F ROOM: RE09/28/[address]: Dr. Barbara Swartz DO : 1990 BED: DIS: 09/28/2023 SPEC #: [id number] RECD: 09/28/23 14:01 STATUS: DRU ORTIZ #: [id number] JESICA: 09/28/23 12:[address]: Barbara Swartz DEPT: SURGICAL PATHOLOGY RECD BY: Gita Sheppard ENTERED: 10/01/23 09:33 SP TYPE: PROD CONC OTHR DR: Dr. Enio Acosta MD Tissues: Product of conception, NOS Procedures: Surgery Specimen Level IV HEADER OPERATION: Suction dilation and curettage PRE-OP DIAGNOSIS: Missed TISSUE SUBMITTED: Products of conception MICROSCOPIC DIAGNOSIS Endometrium, curettage: Chorionic villi, decidualized stroma and trophoblastic cells (products of conception). See comment. AM:luz 10/02/2023 COMMENT Occasional villi show hydropic change. Clinical correlation is suggested. MICROSCOPIC DESCRIPTION Slides are reviewed. GROSS DESCRIPTION Received in fixative is one container labeled with the patient's name and designated products of conception. The specimen consists of multiple fragments of hemorrhagic soft tissue that in aggregate measure 6.0 x 5.0 x 2.0 cm. tissue is not identified. [employer] Head tissue is submitted in two cassettes. / SJ:luz 10/01/2023 TC:5 CPT:
--- NOTE | 2023-09-28 12:29 | HP.PCM_ITS ---
History and Physical Date of Admission: 09/28/23 Intake Vital Signs 06/07/2309:14 09/26/2411:55 Height 5 ft 1 in 5 ft 1 in Weight: 161 lb 4 oz BMI 30.4 BP 117/75 Intake Visit Reasons: NOB LMP 07/25 Instructional Aide Required: No Is patient in pain?: No Allergies latex Adverse Reaction (Verified 09/21/23 09:53) Rash Medications multivitamin no.47-iron fum 27 mg-folate no.1 1 mg-dha 300 mg capsule (PNV-DHA) cap PO 09/21/23 [History Confirmed 09/21/23] Last Menstrual Period: 07/25/23 Zika: Zika virus screening: Negative : No PFSH PFSH Medical History History of depression Surgical History H/O adenoidectomy Family History (Updated 09/26/23 @ 13:24 by Albertina Zendejas CNM) Mother Thyroid disorderFather Asthma Social History adopted: No household members: spouse and children number of children: 2 current occupational status: unemployed current occupation: [employer] current occupational exposures/hazards: No pets and animals: Yes (AVOID LITTERBOX) pets and animals: cat(s) and dog(s) history of recent travel: No sexually active: Yes Smoking Status: Never smoker alcohol intake: never substance use type: does not use well-balanced diet: daily or most days caffeine: No eating out: rarely or never during the past year weight has: remained stable what type of physical activity do you participate in: walking abraham/mormon: Sikh seatbelt use: always do you feel safe at home: Yes 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 Date Name GA/Weeks Outcome Route Bth Weight Infant Gen Labor Lgth Anesthesia Del Locatn Provider FOB Unknown 2015 Lauro 40 live - full term 8lbs 2 ou nces Male Kennedy Unknown 2017 Pranav 39 live - full term 7#0 oz Ma le [facility] SM Delivery Date: Last Updated by: Heidi Medley Smooth Placenta severed after HPI NOB LMP 07/25 Details: LLUVIA MELENDEZ is a 33 year old who presents for New OB visit. OB Visit DELMI Calculator Estimated Delivery Date Method Current WG Current Estimate 04/30/24 LMP (Certain) 9w 0d Comments: HIV: Urine Culture: Sequential Screen: NIPT Screen: Estimated Due Date: 04/30/24 Expected Delivery Route/Plan Labor Preferences- CB/BF classes: [] labor support person: [] labor intervention preferences: [] pain management options preferred: [] cut cord/dad catch: [] : [] PP control planned: [] discussed possible routes of delivery and associated risks: [] special requests: [] Specific Issue/Plans Covid status: [] Flu vaccine: [] Tdap vaccine: [] Rhogam: [] LARC form signed: [] Problem list reviewed and updated with the most current plan of care details and appropriate orders placed. Relevant counseling for the gestational age provided. Continue routine care and follow up unless otherwise noted in visit notes/problem list details Initial Weight: Not Recorded Date -?-?-?-?-?-?-?-?-?-?-?-?- EGA Weight BP Urine Prot -?-?-?-?-?-?-?-?-?-?-?-?- Glucose FHR FuHt Pres Dilation -?-?-?-?-?-?-?-?-?-?-?-?- Effaced St Visit Note 09/26/23-?-?-?-?-?-?-?-?-?-?-?-?- 9w 0d 161 lb 4 oz 117/75 -?-?-?-?-?-?-?-?-?-?-?-?- -?-?-?-?-?-?-?-?-?-?-?-?- LC-no pole or YS visualized. GS=48mm. confirmed with JV. will obtain d&c, consented by JV. to schedule for AM. NPO after midnight. ROS: general: no fevers or chills HEENT: no visual changes Chest: no chest pain or shortness of breath, no heart palpitations or other irregular rhythms Abdominal: no abdominal pain or change in bowel : no urinary frequency, dysuria, no abnormal bleeding Extremities: no pain or weakingss Exam: General: A&Ox 3, nad HEENT: perrl Chest: normal inspiratory effort, regular heart rate GI: no rebound or guarding, soft, non-tender : see above note for ultrasound finding extremities: no clubbing, cyanosis, or edema Menstrual History Last Menstrual Period: 07/25/23 Reported LMP: definite Antepartum Record Genetic Screening: Congenital Heart Defect: Other, Neural Tube Defect: Other, Hemoglobinopathy Or Carrier: Other, Cystic Fibrosis: Other, Chromosome Abnormality: Other, Silvano-Sachs: Other, Hemophilia: Other, Intellectual Disability/Autism: Patient (son being tested for Autism), Recurrent Loss/Stillbirth: Other, Other Structural Defect: Other, Other Genetic Disease: Other and Maternal Metabolic Disorder: Other Infection History: Live with someone with TB or Exposed to TB: No, Patient or Partner has history of Genital Herpes: No, Rash or Viral illness since last mentrual period: No, Prior GBS-Infected child: No, History of STD: No, HIV Infection: No, History of Hepatitis: No, Recent travel outside of [place]: No, Concern for hepatitis exposure: No, Varicella immune: Yes (immune) and Covid Vaccinated: No Medical History Medical History: Positive: Depression/ depression and Negative: Diabetes, Hypertension, Heart disease, Auto-immune disorder, Kidney disease/UTI, Neurologic/epilepsy, Psychiatric, Hepatitis/liver disease, Varicosities/phlebitis, Thyroid dysfunction, Trauma/domestic violence, History of blood transfusions, D (Rh) Sensitized, Pulmonary (e.g.,TB,Asthma), Seasonal allergies, Drug/latex allergies/reactions, Breast, Research Computing Specialist surgery, Operations/hospitalizations, Anesthetic complications, History of abnormal pap, Uterine anomaly/magdiel, Infertility, Anti-retroviral treatment, Relevant family history and Other ACOG First Trimester First Trimester: Desire for , Alcohol, Tobacco Cessation, Illicit/Recreational Drug/Substance Use, Intimate Partner Violence, Barriers to care, Unstable Housing, Communication Barriers, Environmental/Work Hazards, Anticipated Course of Care, Toxoplasmosis Precations, Use of Any medications, Sexual activity, Exercise, Dental Care, Sauna/Hot tub use, Seat Belt use, Childbirth classes/Hospital facilities, Travel, Indications for Ultrasound and Screening for Aneuploidy; Discussed Assessment and Plan Assessment and Plan (1) missed - @ 10 weeks gestation, no pole or yolk sac seen. After discussing the patient's diagnosis and treatment plan options, patient wishes to proceed with surgical management. I have discussed with the patient the risks, benefits, and alternatives of the procedure which include but are not limited to risks of anesthesia, bleeding, infection, possible damage to bowel, bladder, or surrounding vasculature which could lead to additional surgery to evaluate any complications. Patient agrees to procedure and wishes to proceed. ACOG/uptodate references given for additional information regarding procedure. pLan is to proceed with a suction dilation and curettage.
--- NOTE | 2023-09-28 12:40 | DCINST_ITS ---
Discharge Instructions Diet Discharge Diet: No restrictions Activity Discharge Activity: Return to Normal Activity, May Shower and May Take a Tub Bath (after 1 week) May resume sexual activity in: 1-2 weeks Weight Bearing Status: Weight bearing as tolerated Lifting Restrictions: none Dressing / Incision Call your doctor if you observe: Fever of 101 or Higher, Using more than 1 pad per hour, Shortness of breath and Uncontrolled pain Follow Up Care Please Follow Up With: Barbara Swartz DO When: Call [phone] to schedule appointment. Test Results: Test results from this visit will be discussed in further detail at your follow- up appointment, if applicable. Discharge Plan Admission Primary Reason for Your Visit: suction dilation and curettage Attending Provider: Barbara Swartz Primary Care Provider: Enio Acosta Discharge Orders/Prescriptions Prescriptions: New ibuprofen 800 mg tablet 800 mg PO Q8H PRN (Reason: pain) Qty: 20 0RF oxycodone-acetaminophen [Percocet] 5-325 mg tablet 1 tab PO Q4H PRN (Reason: pain) 7 Days Qty: 6 0RF Rx Instructions: 1-2 tabs q 4 hrs as needed for pain No Action PNV-DHA 27 mg iron-1 mg -300 mg capsule 1 cap PO DAILY Referrals / Follow Up: Enio Acosta MD [Primary Care Provider] - Disposition Disposition (needs filled in before D/C Order can be placed): Home, Self Care
--- NOTE | 2023-09-28 13:04 | OP.PCM_ITS ---
Problems Associated Problem List Diagnoses (1) Missed : Report of Operation Date of Procedure: 09/28/23 Pre-Operative Diagnosis: 10 week missed Post-Operative Diagnosis: 10 week missed Surgery/Procedure Performed:: suction dilation and curettage Description of Surgical Findings:: normal cervix and vagina, 10 cm uterus Surgeon: Barbara Swartz nutrition technician: None Type of Anesthesia: MAC Specimen's removed: products of conception Drains: none Estimated Blood Loss (mL): 30cc Description of Procedure: Patient was taken to the operating room and placed under MAC local anesthesia. She was prepped and draped in the normal sterile fashion the dorsal lithotomy position. Bladder was drained of clear urine and anterior lip of the cervix was grasped and the uterus sounded to 10 cm. Cervix was progressively dilated to allow passage of a 8 curved suction curette. Progressive passes were made removing the retained products of conception without complication. Sharp curettage confirmed complete removal of the retained products. All instruments were removed from the vagina and excellent hemostasis was noted and the patient was taken to recovery in stable condition. Procedure Start Time: 12:54 Procedure Stop Time: 13:03 Complications none Admit VTE Documentation VTE Present on Admission: No VTE Pharm Prophylaxis ordered?: No Multi Select Codes Urinary/Genital Urinary/Genital CPT Codes: 25335 Surg Trtmt missed Ab 1TM
== END 2023-09-28 14:08 | disposition home or self-care (01) ==
LOC: SDC 10:08 → AC 10:11
PROVIDERS: PCP Family Medicine; Referring Provider Obstetrics & Gynecology; Visit Provider Obstetrics & Gynecology
PROC: (CPT 59820; principal; 2023-09-28 11:45)
DX: O02.1 Missed abortion (principal)
CPT/HCPCS: 59820; 01965; 85027; 86850; 86900; 86901; 88305; J7120; J2405

== ENCOUNTER → 2024-02-01 | Outpatient (CLI) | payer BC, SELFPAY ==
--- NOTE | 2024-02-01 09:20 | US_ITS ---
STUDY: FIRST TRIMESTER OBSTETRICAL ULTRASOUND REASON FOR EXAM: Female, 33 years old VIABILITY LMP: 12/13/2023 TECHNIQUE: Transabdominal and Transvaginal TECHNICAL QUALITY: Adequate. PRIOR ULTRASOUND: None. FINDINGS: There is visualization of a single gestational sac in a normal intrauterine position. The mean sac diameter (MSD) measures 2.5 centimeters, indicating an estimated gestational age (EGA) of 7 weeks, 4 days. The gestational sac shape is within normal limits. There is a visualized yolk sac. The yolk sac measures 0.4 cm. The placenta is non-visualized. There is visualization of a live embryo. The crown-rump length (CRL) measures 1.0 cm, indicating an estimated gestational age (EGA) of 7 weeks, 1 days. There is demonstrated cardiac activity with a heart rate of 146 bpm. The estimated gestation age (EGA) by LMP is 7 weeks, 1 days. The estimated date of delivery (DELMI) by LMP is 09/18/2024. The estimated gestation age (EGA) by US is 7 weeks, 3 days. The estimated date of delivery (DELMI) by US is 09/16/2024. The uterus measures 9.4 x 6.4 x 5.5 cm. There is no demonstrated uterine fibroid. The cervix is closed. The right ovary measures 3.6 x 2.5 x 2.5 cm. There is a simple 2.2 cm cyst. The left ovary measures 2.4 x 1.2 x 1.6 cm. There is no left ovarian cyst. There is no visualized left adnexal mass or complex lesion. There is minimal fluid in the cul de sac. US/Transvaginal w/Preg US IMPRESSION: Single live intrauterine at 7 weeks, 3 days by current ultrasound with DELMI of 09/16/2024. Heart rate 146 bpm. No suspicious sonographic findings Electronically Signed: Yonatan Sung MD at 11:45 EDT ,
== END | disposition home or self-care (01) ==
PROVIDERS: PCP Family Medicine; Referring Provider Advanced Practice Midwife; Visit Provider Advanced Practice Midwife
DX: O09.299 Supervision of pregnancy with other poor reproductive or obstetric history, unspecified trimester (principal); Z3A.00 Weeks of gestation of pregnancy not specified
CPT/HCPCS: 76817

== ENCOUNTER → 2024-02-12 | Outpatient (CLI) | payer BC, SELFPAY ==
[2024-02-15 04:08] LABS: Chlamydia By Nucleic Acid AMP Negative (Negative); Gonococcus By Nucleic Acid AMP Negative (Negative)
== END | disposition home or self-care (01) ==
LOC: LABSPEC 16:51
PROVIDERS: PCP Family Medicine; Referring Provider Advanced Practice Midwife; Visit Provider Advanced Practice Midwife
DX: O09.90 Supervision of high risk pregnancy, unspecified, unspecified trimester (principal); E66.9 Obesity, unspecified; Z3A.00 Weeks of gestation of pregnancy not specified
CPT/HCPCS: 87086; 87491; 87591

== ENCOUNTER → 2024-02-22 | Outpatient (CLI) | payer BC, SELFPAY ==
[2024-02-22 10:30] LABS: Absolute Lymphocyte Count 1.58 X10^3/uL (0.83-4.51); Basophil# 0.05 X10^3/uL; Basophil% 0.8 % (0-1); Eosinophils% 6.2 % (0-5); Hematocrit 39.4 % (37-47); Hemoglobin 13.2 g/dL (12.0-15.0); Lymphocyte # 1.58 X10^3/ul (0.83-4.51); Lymphocyte % 24.4 % (19-41); Mean Corp Hgb Conc 33.5 g/dL (32-36); Mean Corpuscular Hgb 29.2 pg (27.0-32.0); Mean Corpuscular Volume 87.2 fL (81-99); Mean Platelet Vol. 11.7 fl (6.2-12.0); Monocyte# 0.35 X10^3/uL; Monocyte% 5.4 % (0-10); NRBC Flagged by Analyzer 0 % (0-5); Neutrophil # 4.03 X10^3/uL (2.7-7.7); Neutrophil % 62.3 % (47-70); Platelet Count 180 K/mm3 (150-450); RBC Distribution Width CV 12.6 % (11.6-14.6); Red Blood Count 4.52 M/mm3 (4.2-5.4); White Blood Count 6.5 K/mm3 (4.4-11.0)
[2024-02-22 11:59] LABS: HIV - WCH Non-Reactive (Nonreactive); Hepatitis B Surface Antigen Non-Reactive (Nonreactive); Hepatitis C Antibody Non-Reactive (Nonreactive); Rubella IgG Reactive (Nonreactive); Syphilis Antibodies Non-reactive
[2024-02-22 20:38] LABS: Hemoglobin A1c 5.1 % (3.8-5.6)
== END | disposition home or self-care (01) ==
LOC: LAB 09:58
PROVIDERS: PCP Family Medicine; Referring Provider Advanced Practice Midwife; Visit Provider Advanced Practice Midwife
DX: O99.210 Obesity complicating pregnancy, unspecified trimester (principal); Z3A.00 Weeks of gestation of pregnancy not specified
CPT/HCPCS: 36415; 83036; 85025; 86703; 86762; 86780; 86803; 86850; 86900; 86901; 87340

== ENCOUNTER → 2024-06-23 | Outpatient (CLI) | payer BC, SELFPAY ==
[2024-06-23 11:08] LABS: Absolute Lymphocyte Count 1.46 X10^3/uL (0.83-4.51); Absolute Neutrophil Count 6.7 X10^3/uL (2.0-7.7); Basophil# 0.05 X10^3/uL; Basophil% 0.5 % (0-1); Eosinophil# 0.25 X10^3/uL; Eosinophils% 2.7 % (0-5); Hematocrit 35.9 % (37-47); Hemoglobin 11.5 g/dL (12.0-15.0); Lymphocyte # 1.46 X10^3/ul (0.83-4.51); Mean Corpuscular Hgb 29.3 pg (27.0-32.0); Mean Corpuscular Volume 91.6 fL (81-99); Mean Platelet Vol. 10.9 fl (6.2-12.0); Monocyte# 0.58 X10^3/uL; Monocyte% 6.4 % (0-10); NRBC Flagged by Analyzer 0 % (0-5); Neutrophil # 6.66 X10^3/uL (2.7-7.7); Platelet Count 165 K/mm3 (150-450); RBC Distribution Width CV 13.3 % (11.6-14.6); Red Blood Count 3.92 M/mm3 (4.2-5.4); White Blood Count 9.1 K/mm3 (4.4-11.0)
[2024-06-23 11:25] LABS: Glucose Challenge Gest 1H 50g 116 mg/dL (70-140)
[2024-07-01 14:09] LABS: HIV 1/0/2 SCREEN Non Reactive (Non Reactive); Syphilis Antibodies Non Reactive (Non Reactive)
== END | disposition home or self-care (01) ==
LOC: LAB 10:19
PROVIDERS: PCP Family Medicine; Referring Provider Obstetrics & Gynecology; Visit Provider Obstetrics & Gynecology
DX: O09.90 Supervision of high risk pregnancy, unspecified, unspecified trimester (principal); Z13.1 Encounter for screening for diabetes mellitus; Z3A.00 Weeks of gestation of pregnancy not specified
CPT/HCPCS: 36415; 82950; 85025; 86703; 86780

== ENCOUNTER → 2024-07-30 | Outpatient (CLI) | payer BC, SELFPAY | END | disposition home or self-care (01) | LOC: LABSPEC 11:43 | PROVIDERS: PCP Family Medicine; Referring Provider Nurse Practitioner Women's Health; Visit Provider Nurse Practitioner Women's Health | DX: R31.9 Hematuria, unspecified (principal) | CPT/HCPCS: 87077; 87086; 87088; 87186 ==

== ENCOUNTER → 2024-08-22 | Outpatient (CLI) | payer BC, SELFPAY | END | disposition home or self-care (01) | LOC: LABSPEC 15:58 | PROVIDERS: PCP Family Medicine; Referring Provider Advanced Practice Midwife; Visit Provider Advanced Practice Midwife | DX: O23.43 Unspecified infection of urinary tract in pregnancy, third trimester (principal); Z3A.00 Weeks of gestation of pregnancy not specified | CPT/HCPCS: 87077; 87086; 87088; 87186 ==

== ENCOUNTER 2024-09-04 14:12 | Inpatient (IN) | payer BC, SELFPAY ==
[2024-09-04] VITALS (14 sets, daily range): BP systolic 116–128; BP diastolic 56–67; PULSE 61–86; RESP 16–18; TEMP 36.3–36.7; O2SAT 99–100; BMI 34.4
[2024-09-04] MEDS: Lactated Ringers 1,000 ML 50 ML IV (15:20)
[2024-09-04] MEDS: Penicillin G Pot 5,000,000 UNITS in 0.9% Normal Saline (100mL MB+) 100 ML 150 UNITS IV (15:21)
[2024-09-04 15:43] LABS: Absolute Lymphocyte Count 1.26 X10^3/uL (0.83-4.51); Absolute Neutrophil Count 7.6 X10^3/uL (2.0-7.7); Basophil# 0.07 X10^3/uL; Basophil% 0.7 % (0-1); Eosinophil# 0.08 X10^3/uL; Eosinophils% 0.8 % (0-5); Hematocrit 34.6 % (37-47); Hemoglobin 11.6 g/dL (12.0-15.0); Lymphocyte # 1.26 X10^3/ul (0.83-4.51); Lymphocyte % 12.9 % (19-41); Mean Corp Hgb Conc 33.5 g/dL (32-36); Mean Corpuscular Hgb 29.2 pg (27.0-32.0); Mean Corpuscular Volume 87.2 fL (81-99); Mean Platelet Vol. 11.7 fl (6.2-12.0); Monocyte# 0.62 X10^3/uL; Monocyte% 6.3 % (0-10); NRBC Flagged by Analyzer 0 % (0-5); Neutrophil # 7.64 X10^3/uL (2.7-7.7); Neutrophil % 78.3 % (47-70); POSITIVE COUNT YES; Platelet Count 159 K/mm3 (150-450); RBC Distribution Width SD 44.4 fl (35.1-43.9); Red Blood Count 3.97 M/mm3 (4.2-5.4); White Blood Count 9.8 K/mm3 (4.4-11.0)
[2024-09-04 15:45] LABS: Differential Indicated SCAN CRITERIA MET
[2024-09-04 15:46] LABS: AST(SGOT) 13 U/L (15-37); Alanine Aminotransfer ALT/SGPT 14 U/L (13-56); Creatinine, Serum 0.55 mg/dL (0.55-1.02); EST Glomerular Filtration Rate 136 mL/min (>60); Est Glom Filt Rate - Afr Amer 164 mL/min (>60); Estimated Creatinine Clearance 143.26 ml/min; Uric Acid 3.2 mg/dL (2.6-6.0)
--- NOTE | 2024-09-04 15:58 | HP.PCM.OB_ITS ---
HPI - General General Date of Admission: 09/04/24 Date of Service: 09/04/24 HPI Narrative LLUVIA MELENDEZ, is a 34 F at 38 weeks who presents to unit after being seen by Dr Torres in the office. Likely early labor. 5 cm dilated in office, GBS positive and Hx of precipitous delivery. Plan for admission and GBS treatment prior to ROM Maternal Data Information DELMI Calculator Estimated Delivery Date Method Current WG Current Estimate 09/18/24 LMP (Certain) 38w 0d Other Estimates 09/18/24 Ultrasound #1 38w 0d Final DELMI: 09/18/24 Final DELMI Source: US >20 weeks Gestational age: 38.0 PFSH PFSH Medical History Missed Non-smoker History of depression Home Medications ?Medication ?Instructions ?Recorded ?Last Taken ?Type multivitamin no.47-iron fum 27 1 cap PO DAILY PPD 09/21/23 Unknown History mg-folate no.1 1 mg-dha 300 mg capsule (PNV-DHA) sertraline 50 mg tablet (Zoloft) 50 mg PO QDAY depression #30 tabs 08/22/24 Unknown Rx Allergy/AdvReac Type Severity Reaction Status Date / Time latex AdvReac Rash Verified 09/04/24 15:01 Family History Mother Thyroid disorder Father Asthma Depression Brother Bipolar 1 disorder Surgical History [place] teeth extracted Status post dilation and curettage Hx of myringotomy H/O adenoidectomy Social History adopted: No household members: spouse and children number of children: 2 current occupational status: unemployed current occupation: [employer] current occupational exposures/hazards: No pets and animals: Yes (AVOID LITTERBOX) pets and animals: cat(s) and dog(s) history of recent travel: No sexually active: Yes Smoking Status: Never smoker alcohol intake: never substance use type: does not use well-balanced diet: daily or most days caffeine: No eating out: rarely or never during the past year weight has: remained stable what type of physical activity do you participate in: walking frequency: 1-2 times per week duration: 60-90 minutes/day abraham/gnosticist: Orthodoxy seatbelt use: always do you feel safe at home: Yes 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 Date Name GA/Weeks Outcome Route Bth Weight Gen Labor Lgth Anesthesia Del Locatn Provider FOB Unknown 2015 Lauro 40 live - full term 8lbs 2 ounces Male [place] Unknown 2017 Pranav 39 live - full term 7#0 oz Male [facility] 09/26/23 10 spontaneous Delivery Date: Last Updated by: Heidi Rebollar Placenta severed after Delivery Date: 09/26/23 Last Updated by: Heidi Rebollar D&C Visit Details Expected Delivery Route/Plan Labor Preferences- CB/BF classes: [] labor support person: [] labor intervention preferences: [] pain management options preferred: [] cut cord/dad catch: [] : [] PP control planned: [] discussed possible routes of delivery and associated risks: [] special requests: [] Plans Covid status: [] Flu vaccine: delcined Tdap vaccine: declined Rhogam: declined LARC form signed:declined movement and labor precautions reviewed. Problem list reviewed and updated with the most current plan of care details and appropriate orders placed. Relevant counseling for the gestational age provided. Continue routine care and follow up unless otherwise noted in visit notes/problem list details OB Flowsheet Initial Weight: Not Recorded Date -?-?-?-?-?-?-?-?-?-?-?-?- EGA Weight BP Urine Prot -?-?-?-?-?-?-?-?-?-?-?-?- Glucose FHR FuHt Pres Dilation -?-?-?-?-?-?-?-?-?-?-?-?- Effaced St Visit Note 02/12/24 -?-?-?-?-?-?-?-?-?-?-?-?- 8w 5d 164 lb 133/74 -?-?-?-?-?-?-?-?-?-?-?-?- 176 -?-?-?-?-?-?--?-?-?-?-?-?- KW- CRL cons wit h dates. ordered NIPT. 03/19/24 -?-?-?-?-?-?-?-?-?-?-?-?- 13w 6d 163 lb 125/74 -?-?-?-?-?-?-?-?-?-?-?-?- 155 -?-?-?-?-?-?-?-?-?-?-?-?- SM- no vb lof cr amping 05/21/24 -?-?-?-?-?-?-?-?-?-?-?-?- 22w 6d 171 lb 123/74 Negative -?-?-?-?-?-?-?-?-?-?-?-?- Negative 145 -?-?-?-?-?-?-?-?-?-?-?-?- SM- no vb lof go od fm no regular ctx 07/01/24 -?-?-?-?-?-?-?-?-?-?-?-?- 28w 5d 176 lb 126/81 Negative -?-?-?-?-?-?-?-?-?-?-?-?- Negative 135 28 -?-?-?-?-?-?-?-?-?-?-?-?- KW- no vb/ever ng. good fm. passed glucose. doing well 07/14/24 -?-?-?-?-?-?-?-?-?-?-?-?- 30w 4d 178 lb 114/77 Negative -?-?-?-?-?-?-?-?-?-?-?-?- Negative 135 30 -?-?-?-?-?-?-?-?-?-?-?-?- SM- no vb lof go od fm no regular tcx 07/30/24 -?-?-?-?-?-?-?-?-?-?-?-?- 32w 6d 180 lb 6 oz 116/74 Nega tive -?-?-?-?-?-?-?-?-?-?-?-?- Negative 152 0 -?-?-?-?-?-?-?-?-?-?-?-?- MH-work in for h ematuria. States more BH CTX. Nothing timeable. Good Fm. Rx macrobid 08/13/24 -?-?-?-?-?-?-?-?-?-?-?-?- 34w 6d 181 lb 121/74 Negative -?-?-?-?-?-?-?-?-?-?-?-?- Negative 140 34 -?-?-?-?-?-?-?-?-?-?-?-?- SM- no vb lof go od fm n oreuglar ctx 08/22/24 -?-?-?-?-?-?-?-?-?-?-?-?- 36w 1d 183 lb 126/81 Negative -?-?-?-?-?-?-?-?-?-?-?-?- Negative 140 36 Cephalic 3 -?-?-?-?-?-?-?-?-?-?-?-?- 70 -2 KW- no vb/ lof/reg ctx. good fm. requesting SSRI for hx PPD. GBS pos in urine 08/28/24 -?-?-?-?-?-?-?-?-?-?-?-?- 37w 0d 181 lb 6 oz 127/76 Nega tive -?-?-?-?-?-?-?-?-?-?-?-?- Negative 143 37 Cephalic 4 -?-?-?-?-?-?-?-?-?-?-?-?- 85 -1 JV- recomm end holding off on starting the SSRI this close to delivery. it will not result in much advantage and could cause withdrawal in baby. She denies suicidal ideations and only wanted to take it to help prevent ppd. Labor precautions discussed. pt has h/o fast labor. 09/04/24 -?-?-?-?-?-?-?-?-?-?-?-?- 38w 0d 183 lb 6 oz 149/82 Nega tive -?-?-?-?-?-?-?-?-?-?-?-?- Negative 150 38 Cephalic 5 -?-?-?-?-?-?-?-?-?-?-?-?- 80 -1 SM- no vb lof good fm co ctx all morning now 5 cm and elevated bp, admit to l and d NST FHR Rate Baby A Baseline: 125 Variability:: Moderate Accelerations:: 15 x 15 Decelerations:: None NST Reactive:: Yes FHR Category:: Category I Uterine Activity:: irregular ROS Constitutional Constitutional: Denies change in weight, fatigue, fever(s), headache(s), poor appetite or weakness Eyes Eyes: Denies blurry vision, change in vision, floaters, seeing flashes or spots in vision ENT HEENT: Denies dizziness, headache(s), loss taste/smell or sore throat Cardiovascular Cardiovascular: Denies chest pain, dizziness, dyspnea, irregular heart rhythm, lightheadedness, palpitations or rapid heart rate Respiratory/Chest Respiratory/Chest: Denies change in mental status, chest tightness, cough, dyspnea or breast pain Gastrointestinal Gastrointestinal: Denies anorexia, chewing difficulty, constipation, diarrhea or weight changes Genitourinary Genitourinary: Denies difficulty urinating, dysuria, flank pain, genital pain, urinary frequency or urinary urgency Musculoskeletal Musculoskeletal: Denies back pain, difficulty walking, extremity pain, joint pain, muscle cramps or muscle weakness Integumentary Integumentary: Denies lesions or unusual bruising Neurologic Neurologic: Denies abnormal movements, abnormal speech, dizziness, numbness, seizure-like activity, syncope or weakness Psychiatric Psychiatric: Denies behavioral changes, change in appetite, confusion, depression, homicidal ideation, suicidal ideation or suicidal thoughts Endocrine Endocrinology: Denies excessive sweating, polydipsia or polyuria Hematologic/Lymphatic Hematologic/Lymphatic: Denies anemia Allergic/Immunologic Allergic/Immunologic: Denies itchy eyes, lip swelling, throat swelling, tongue swelling or wheezing Vital Signs Vital Signs Vital Signs: Weight Weight: 182 lb 8.684 oz Body Mass Index (BMI) 34.4 Physical Exam Const alert, oriented x3 and no apparent distress General Appearance: cooperative Orientation / Consciousness: awake HEENT normocephalic Neck full ROM Lymph Lymphatic: no lymphadenopathy noted Chest inspection of chest normal Resp normal respiratory effort and normal air movement Effort and Inspection: able to speak in complete sentences and symmetric chest movement GI soft to palpation and non-tender Inspection: gravid Palpation: soft; Negative for tender external exam normal Back/Spine normal to inspection Extremity normal to inspection and full ROM Skin no rashes or lesions noted Psych mental status grossly normal Appearance: grossly normal Speech: normal speech Labs Labs Labs: Blood Type O POSITIVE Antibody Screen NEGATIVE Hct 34.6 % (37-47) L Hgb 11.6 g/dL (12.0-15.0) L Pap Smear Negative Obstetrics Ultrasound Syphilis Total Ab Non Reactive (Non Reactive) Rubella IgG Antibody Reactive (Nonreactive) Hep Bs Antigen Non-Reactive (Nonreactive) Hepatitis C Antibody Non-Reactive (Nonreactive) Chlamydia DNA (OLINDA) Negative (Negative) N.gonorrhoeae DNA (OLINDA) Negative (Negative) HIV 1&2 Antibody Non Reactive (Non Reactive) Glucose 1 Hr 50 gm 116 mg/dL (70-140) Gest Glucose Tolerance MG/DL Rhogam given: No Assessment & Plan (1) Anxiety and depression: COMMENT: zoloft after delivery (2) GBS (group B streptococcus) UTI complicating : COMMENT: Low growth-treat in labor (3) UTI in : QUALIFIERS: Trimester: third trimester Qualified Code(s): O23.43 - Unspecified infection of urinary tract in , third trimester COMMENT: +UA, Macrobid. Low ct GBS only on culture (4) Obesity affecting : QUALIFIERS: Trimester: third trimester Obesity type affecting : unspecified obesity Qualified Code(s): O99.213 - Obesity complicating , third trimester COMMENT: HgA1C nl. encouraged healthy weight gain. (5) Supervision of high-risk : QUALIFIERS: Trimester: third trimester Qualified Code(s): O09.93 - Supervision of high risk , unspecified, third trimester COMMENT: PRR, , DELMI 09/18/24, girl Farooq Pranav Simmons, Adonis (6) : QUALIFIERS: Weeks of gestation: 38 weeks Qualified Code(s): Z3A.38 - 38 weeks gestation of COMMENT: normal anatomy, NIPT LR (7) ASCUS (atypical squamous cells of undetermined significance) on gynecologic Papanicolaou smear complicating , antepartum: COMMENT: 2023 negative hpv, ASCUS- repeat pap in 2026 per ASCCP guidelines Charges/Coding Multi Select Codes Urinary/Genital Urinary/Genital CPT Codes: No Charge
[2024-09-04 16:07] LABS: Syphilis Antibodies Non-reactive
[2024-09-04 16:28] LABS: Differential Comment SCANNED; Platelet Estimate ADEQUATE (ADEQ)
[2024-09-04 16:47] LABS: Protein, Urine (Random) 20.3 mg/dL (<11.9); Protein:Creat Ratio 206 mg/g CRE (0-200)
[2024-09-04] MEDS: Oxytocin 15 Units/NS 250ml 15 UNITS/250 ML IV.SOLN 83 UNITS IV (17:57)
[2024-09-04] MEDS: Oxytocin 10 UNITS/ML Vial IM (17:57)
[2024-09-04] MEDS: 0.9% Saline Lock 10 ML Syringe IV ×2 (17:57→21:08)
--- NOTE | 2024-09-04 18:03 | OB.VAGDELI_ITS ---
Assessment & Plan (1) Vaginal delivery: COMMENT: IAL KW 38.0 Girl (2) Anxiety and depression: COMMENT: zoloft after delivery (3) GBS (group B streptococcus) UTI complicating : COMMENT: Low growth-treat in labor (4) UTI in : QUALIFIERS: Trimester: third trimester Qualified Code(s): O23.43 - Unspecified infection of urinary tract in , third trimester COMMENT: +UA, Macrobid. Low ct GBS only on culture (5) Obesity affecting : QUALIFIERS: Trimester: third trimester Obesity type affecting : unspecified obesity Qualified Code(s): O99.213 - Obesity complicating , third trimester COMMENT: HgA1C nl. encouraged healthy weight gain. (6) Supervision of high-risk : QUALIFIERS: Trimester: third trimester Qualified Code(s): O09.93 - Supervision of high risk , unspecified, third trimester COMMENT: PRR, , DELMI 09/18/24, girl Farooq ANITA Restrepo Pranav, Adonis (7) : QUALIFIERS: Weeks of gestation: 38 weeks Qualified Code(s): Z 3A.38 - 38 weeks gestation of COMMENT: normal anatomy, NIPT LR (8) ASCUS (atypical squamous cells of undetermined significance) on gynecologic Papanicolaou smear complicating , antepartum: COMMENT: 2023 negative hpv, ASCUS- repeat pap in 2026 per ASCCP guidelines Maternal Data Information DELMI Calculator Estimated Delivery Date Method Current WG Current Estimate 09/18/24 LMP (Certain) 38w 0d Other Estimates 09/18/24 Ultrasound #1 38w 0d Final DELMI: 09/18/24 Final DELMI Source: US >20 weeks Gestational age: 38.0 Vaginal Delivery Maternal Presentation Maternal Presentation: Active Labor Maternal Presentation: Presented to unit for active labor after being seen in the office. PCN for GBS but was not treated in time. SROM at 1655. Vaginal Delivery Information Procedure Performed: Spontaneous Vaginal Delivery Surgeon/Practitioner: Taina Ty Date of Procedure: 09/04/24 Pre-Procedure Diagnosis: see problem list Post-Procedure Diagnosis: same Type of anesthesia: None Estimated Blood Loss: 150 Time of Delivery: 17:47 Findings Description of procedure: Progressed well to 10cm dilated and made steady progress with effective maternal pushing. Delivered the head in JANETH presentation. The head was delivered atraumatically and no nuchal cord was identified. The anterior and posterior shoulders delivered without complication followed by the rest of the and the infant was placed on the maternal abdomen. Delayed cord clamping was employed for approximately 3 minutes. Cord was clamped and cut and gentle traction was applied to the cord and the placenta delivered spontaneously. Immediately following, it was noted to be intact with a 3 vessel cord. Uterine bleeding stable. The perineum and vagina were inspected and noted to have no laceration. EBL was 150cc. Patient and infant tolerated delivery well. Apgars 8/8. Dr Torres notified of vaginal delivery and orders reviewed. Physician agrees with current plan of care. Presentation: Vertex Amniotic Membrane Rupture Type: Spontaneous Amniotic Fluid Description: Clear Placental Delivery Description: Spontaneous Placenta Disposition: [facility] Specimen collected: No Cord Vessel Description: 3 Vessels Cord Entanglement: None A Gender: Female (1 minute): 8 (5 minute): 8 Delayed Cord Clamping: Yes Drafter Topographical hospice care sales consultant: No Post Vaginal Deli Medications given after delivery: IV Pitocin and IM Pitocin Episiotomy Description: None Laceration: None Complication Complications: No Multi Select Codes Urinary/Genital Urinary/Genital CPT Codes: 90789 Vaginal Delivery [facility]
--- NOTE | 2024-09-04 18:09 | DCINST_ITS ---
Discharge Instructions DC O2, CPAP, BIPAP needs Home O2 Discharge instructions: No Follow Up Care Test Results: Test results from this visit will be discussed in further detail at your follow- up appointment, if applicable. Discharge Plan Admission Admit Date/Time: 09/04/24 14:12 Attending Provider: Taina Ty Primary Care Provider: Enio Acosta Discharge Orders/Prescriptions Prescriptions: No Action PNV-DHA 27 mg iron-1 mg -300 mg capsule 1 cap PO DAILY sertraline [Zoloft] 50 mg tablet 50 mg PO QDAY Qty: 30 6RF Patient Comments: for - not yet started Referrals / Follow Up: Enio Acosta MD [Primary Care Provider] -
[2024-09-05 00:28] VITALS: BP 121/55; PULSE 80; RESP 18; TEMP 36.6; O2SAT 98
[2024-09-05 04:08] VITALS: BP 94/57; PULSE 52; RESP 16; TEMP 36.5; O2SAT 99
[2024-09-05] MEDS: Ibuprofen 600 MG Tablet PO ×2 (04:17→19:54)
[2024-09-05 08:11] VITALS: BP 114/61; PULSE 60; RESP 16; TEMP 36.7; O2SAT 100
--- NOTE | 2024-09-05 08:16 | PN.OBGYN_ITS ---
Subjective Subjective Patient doing well without complaints. Tolerating PO. Ambulating and voiding without difficulty. Feeding well. Denies chest pain, shortness of breath, calf pain/swelling, fevers, chills, lightheadedness. Objective Data Objective Data Vital Signs: Vital Signs Temp Pulse Resp BP Pulse Ox O2 Del Method 98.0 F 60 16 114/61 100 Room Air 09/05/24 08:11 09/05/24 08:11 09/05/24 08:11 09/05/24 08:11 09/05/24 08:11 09/05/24 08:11 Oxygen Delivery Method Room Air Weight: 182 lb 8.684 oz Body Mass Index (BMI) 34.4 Intake & Output: Intake and Output for Last 24 Hours 09/03/24 09/04/24 09/05/24 23:59 23:59 23:59 Intake Total 484 / 484 Output Total 900 / 900 Balance -416 / -416 Lab / Micro Data 09/04/24 15:00 09/04/24 15:00 Labs: Laboratory Results - last 24 hr 09/04/24 15:00: WBC 9.8, RBC 3.97 L, Hgb 11.6 L, Hct 34.6 L, MCV 87.2, MCH 29.2, MCHC 33.5, RDW Std Deviation 44.4 H, RDW Coeff of [place] 14.0, Plt Count 159, MPV 11.7, Immature Gran % (Auto) 1.000 H, Neut % (Auto) 78.3 H, Lymph % (Auto) 12.9 L, [place] % (Auto) 6.3, Eos % (Auto) 0.8, Baso % (Auto) 0.7, Absolute Neuts (auto) 7.6, Absolute Lymphs (auto) 1.26, Nucleated RBC % 0, Differential Comment SCANNED, Platelet Estimate ADEQUATE, Creatinine 0.55, Estim Creat Clear Calc 143.26, Est GFR (MDRD) Af Amer 164, Est GFR (MDRD) Non-Af 136, Uric Acid 3.2, A ST 13 L, ALT 14, Syphilis Total Ab Non-reactive, Blood Type O POSITIVE, Antibody Screen NEGATIVE 09/04/24 16:30: U Random Total Protein 20.3 H, Urine Creatinine 98.40, P rotein/Creatinin Ratio 206 H Physical Exam Const alert and oriented x3 HEENT normocephalic Neck full ROM Lymph Lymphatic: no lymphadenopathy noted Chest inspection of chest normal and inspection of breasts normal Resp normal respiratory effort Cardio regular rate and regular rhythm GI normal to inspection, nondistended, normoactive bowel sounds Uterus Palpation: uterus fundus firm (below u) Extremity normal to inspection, full ROM and no pedal edema Skin no rashes or lesions noted Psych mental status grossly normal Assessment & Plan (1) Vaginal delivery: COMMENT: IAL KW 38.0 Girl (2) Anxiety and depression: COMMENT: zoloft after delivery (3) GBS (group B streptococcus) UTI complicating : COMMENT: Low growth-treat in labor (4) UTI in : QUALIFIERS: Trimester: third trimester Qualified Code(s): O23.43 - Unspecified infection of urinary tract in , third trimester COMMENT: +UA, Macrobid. Low ct GBS only on culture (5) Obesity affecting : QUALIFIERS: Trimester: third trimester Obesity type affecting : unspecified obesity Qualified Code(s): O99.213 - Obesity complicating , third trimester COMMENT: HgA1C nl. encouraged healthy weight gain. PLAN: Plan s/p PPD #1 1. routine post delivery care 2. breast feeding- support given, to see today 3. rh positive 4. rubella immune 5. plan d/c home tomorrow
[2024-09-05 12:30] VITALS: BP 133/83; PULSE 89; RESP 16; TEMP 36.6; O2SAT 98
--- NOTE | 2024-09-05 13:19 | CASEMGMT ---
Social Work Assessment Labor and Delivery Unit Patient Address: [address] [place] [address] Phone number: [phone] Date of Referral:09/04/24 Time of Referral: 2056? Referred By: Taina Ty Date of Intervention: ?? 09/05/24 Time of Intervention:? 1129 Reason for Referral:? mental health Sw completed chart review and acknowledges social work consult due to maternal mental health history. Sw presented to bedside and introduced self to mother of baby (MOB- Damaris) and father of baby (FOB- Adonis). Sw explained reason for sw involvement and completed psychosocial assessment. History obtained from: medical records, MOB and FOB Household composition: Currently residing in the family home is MARTIN MENENDEZ, their two older children: Lauro (03/14/16) and Pranav (08/30/18). [place] baby to be added to residence when ready for discharge. Parents deny any housing concerns, reporting it to be safe and secure. Patient's parent/guardian status:? ?MOB states that she and MARTIN have been together for 12 years, for 10. AMAYA states that she and MARTIN went on dates with their best friend, but with the opposite person, and their dates went badly, but they were introduced to each other and the rest is history. No concerns reported of domestic violence or intimate partner violence. This is third baby for both parents together. Medical History: ?AMAYA is 34 year old female who is 4, para 2- now 3 following labor and delivery of . AMAYA received routine care during with [facility]. AMAYA presented to hospital and delivered baby via vaginal delivery at 38 weeks gestation on 09/04/24. Baby girl, named Farooq Joel, was born weighing 7lb 7oz with apgars of 8 and 8 at one and five minutes of life, respectfully. AMAYA states that she is breast feeding and baby will be followed by Dr. Acosta for pediatrics/ primary care. Educational Status:?Both parents graduated from high school. MARTIN reports to obtaining some college credits but no degree. Financial Status: MARTIN is gainfully employed at [employer], he is able to get 2.5 weeks off of work for paternity leave. Infant Supplies: All necessary baby items obtained, including: car seat, safe sleep space, clothes, diapers and wipes. Childcare/Caregiver(s):?AMAYA will be the primary caregiver to baby Transportation:??Both parents have their test car driver's license and reliable means of transportation. No barriers. Programs/Agencies Involved: Parents are not connected to any community resources that assist them financially. ??? Children Services/Legal Issues:???No history of children services involvement as parents, no issues or concerns warranting referral to be made at this time. MARTIN states that he has an extensive history with children services as a minor. MARTIN reports that he was adopted when he was 8, and then returned to the state by his adoptive parents when he was 14. Behavioral Health Issues: ??Mental Health History: MARTIN has been diagnosed with ADHD and dyslexia. AMAYA reports that she has been diagnosed with depression and did experience depression after the last two of her children were born. MARTIN reports that he went through 12 or more years of therapy to process trauma and to learn skills to cope with his ADHD so that he did not need medication. MARTIN reports that he has a lot of coping skills that he uses, including staying busy and making or fixing things with his hands. AMAYA states that she is prescribed zoloft and plans on starting it now that baby has been born to get her through this period. AMAYA states that the symptoms she experienced during her last periods were: anxiety, crying, feeling lonely/ isolated and panic attacks. AMAYA states that MARTIN is her biggest support person because he processes things differently from her and it always helps her to hear his perspective, amaya states this is calming to her. ??? Substance Use History:??Parents deny substance use prior to and during . Family History:?MARTIN states that his biological mom has a substance use disorder, they do not see or talk to her. MARTIN aware of his genetic dispostion and states that he does not use drugs or drink. ? Drug Screens: No drug screens observed in chart review. Family/Social Stressors:? Parents deny any issues, concerns or stressors at this time. Support Systems: AMAYA states that MARTIN is her biggest support person, along with her parents and their hinduism family. ([place]). Depression/Shaken Baby/Safe Sleeping: Sw discussed signs and symptoms of baby blues and mood and anxiety disorders to be mindful of during this period. Parents talked at length regarding MOB's mental health history following her prior two deliveries. MOB states that she knows what her symptoms look like, and knows now that it is important to talk through what she is experiencing and not to stuff it down. FOB states that he would be able to recognize if MOB were struggling, but admits that he does not always know how to help her in those moments. Sw encouraged parents to have a conversation with one another discussing those things, so that FOB knows how to help and support MOB when she is struggling and does not have to ask her. Parents agreed. MOB states that currently she feels really good, denies anxiety, depression, feeling lonely or tearful. Sw edcuated parents to shaken baby prevention and ABCs of safe sleep. Parents express understanding. ASSESSMENT:? MOB and baby admitted following labor and delivery. Parents were observed to have very strong connection and bledsoe, obvious to be big supports for one another. FOB aware of MOB's mental health struggles following her two prior deliveries. MOB has medication (zoloft) that she plans on starting as a preventative measure during this period. Parents have obtained all necessary baby items and have strong supports in place. Parents were talkative, engaging and receptive to meeting with sw. MOB was observed to hold baby in loving and attentive appropriate manner. PLAN:?? No other services requested or indicated. MOB and baby to be discharged when medically ready. Parents were provided literature regarding: signs and symptoms of baby blues and mood and anxiety disorders, Help Me Grow, shaken baby prevention, ABCs of safe sleep and a list of county resources that are available for them should any needs present themselves. Ganesh Steele, UNDERWRITING CLERK, INTERNET MEDIA PLANNER
[2024-09-05] MEDS: Sertraline 50 MG Tablet PO (16:45)
[2024-09-05 17:00] VITALS: BP 126/80; PULSE 54; RESP 16; TEMP 36.1; O2SAT 97
[2024-09-05 20:00] VITALS: BP 116/71; PULSE 55; RESP 16; TEMP 36.7; O2SAT 97
[2024-09-06 02:00] VITALS: BP 115/60; PULSE 56; RESP 16; TEMP 36.6; O2SAT 97
--- NOTE | 2024-09-06 09:18 | PCM.DC.SUM ---
Providers Date of Admission: 09/04/24 Primary Care Physician: Dr. Enio Acosta MD Reason For Visit: VAGINAL DELIVERY Diagnosis Discharge Diagnosis (1) Vaginal delivery: Status: Acute Code(s): O80 - Encounter for full-term uncomplicated delivery (2) Anxiety and depression: Status: Acute Code(s): F41.9 - Anxiety disorder, unspecified; F32.A - Depression, unspecified (3) GBS (group B streptococcus) UTI complicating : Status: Acute Code(s): O23.40 - Unspecified infection of urinary tract in , unspecified trimester; B95.1 - Streptococcus, group B, as the cause of diseases classified elsewhere (4) UTI in : Status: Acute Code(s): O23.40 - Unspecified infection of urinary tract in , unspecified trimester Qualifiers: Trimester: third trimester Qualified Code(s): O23.43 - Unspecified infection of urinary tract in , third trimester (5) Obesity affecting : Status: Acute Code(s): O99.210 - Obesity complicating , unspecified trimester Qualifiers: Trimester: third trimester Obesity type affecting : unspecified obesity Qualified Code(s): O99.213 - Obesity complicating , third trimester Plan s/p PPD #1 1. routine post delivery care 2. breast feeding- support given, to see today 3. rh positive 4. rubella immune 5. plan d/c home tomorrow Medications at Discharge Home Medications multivitamin no.47-iron fum 27 mg-folate no.1 1 mg-dha 300 mg capsule (PNV-DHA) 1 cap PO DAILY PPD 09/21/23 sertraline 50 mg tablet (Zoloft) 50 mg PO QDAY depression #30 tabs 08/22/24 Hospital Course Operations None Procedures None Summary of Care Provided Minutes Spent on Discharge: 15 Hospital Course: presented for , uncomplicated post course. declines treatment for GBS, infant monitored for greater than 36 hours pp. Physical Exam Const alert and oriented x3 Neck full ROM Chest inspection of chest normal Resp normal respiratory effort and no use of accessory muscles GI normal to inspection, nondistended, normoactive bowel sounds Narrative: fundus firm, 1 below u. normal lochia Skin no rashes or lesions noted Psych mental status grossly normal Weight / BMI Weight Weight: 182 lb 8.684 oz Body Mass Index (BMI) 34.4 ABG / Lab / Microbiology Data 09/04/24 15:00 09/04/24 15:00 D/C Instructions Discharge Diet: No restrictions Discharge Activity: May Not Drive and May Shower May resume sexual activity in: 6 weeks Weight Bearing Status: Full weight bearing Call your doctor if your incision/area has: Sudden Increased Bleeding, Increased Pain/ Swelling and Foul Smelling Discharge Call your doctor if you observe: Fever of 101 or Higher, Numbness or Tingling, Change in Color, Inability to urinate, Inability to have a bowel movement, Using more than 1 pad per hour, Shortness of breath, Dizziness, Fainting spells, Chest pain, Calf discomfort and Uncontrolled pain DC O2, CPAP, BIPAP Needs Home O2 Discharge instructions: No DC home with Oxygen: No Please Follow Up With: Taina Ty CNM When: 6 weeks , please call office to make an appointment. Congratulations on the of your baby! Meaningful Use Info Meaningful Use Meaningful Use Diagnoses (Choose all that apply): None applicable Ischemic Stroke Statin Dosing Therapy Reference: STATIN DOSE THERAPY REFERENCE: * Patients > 75 years receive moderate or high dose statin therapy. * Patients 75 years or YOUNGER should receive HIGH intensity statin dose unless contraindicated. You will be required to document reason for non-treatment if statin daily dose does not meet guidelines. HIGH DOSE STATIN THERAPY DAILY Atorvastatin > than or = to 40 mg Rosuvastatin > than or = to 20 mg Amlodipine + Atorvastatin > than or = to 2.5/40 mg Ezetimibe + Simvastatin 10/80 mg Simvastatin 80mg Discharge Plan Admission Admit Date/Time: 09/04/24 14:12 Attending Provider: Taina Ty Primary Care Provider: Enio Acosta Discharge Orders/Prescriptions Prescriptions: No Action PNV-DHA 27 mg iron-1 mg -300 mg capsule 1 cap PO DAILY sertraline [Zoloft] 50 mg tablet 50 mg PO QDAY Qty: 30 6RF Patient Comments: for - not yet started Referrals / Follow Up: Enio Acosta MD [Primary Care Provider] - Disposition Disposition (needs filled in before D/C Order can be placed): Home, Self Care
[2024-09-06 09:33] VITALS: BP 120/75; PULSE 70; RESP 16; TEMP 36.7; O2SAT 98
[2024-09-06] MEDS: Dibucaine 30 GM Tube 1 APPLIC TOPICAL (09:49)
[2024-09-06] MEDS: Hydrocortisone 2.5% Crm 1 APPLIC TOPICAL (09:49)
== END 2024-09-06 10:10 | disposition home or self-care (01) | DRG 807 ==
PROVIDERS: Admitting Provider Advanced Practice Midwife; PCP Family Medicine; Referring Provider Advanced Practice Midwife; Visit Provider Advanced Practice Midwife
DX: O99.214 Obesity complicating childbirth (principal); Z37.0 Single live birth; E66.9 Obesity, unspecified; F32.A Depression, unspecified; F41.9 Anxiety disorder, unspecified; O99.344 Other mental disorders complicating childbirth; O99.824 Streptococcus B carrier state complicating childbirth; Z3A.38 38 weeks gestation of pregnancy; Z79.899 Other long term (current) drug therapy
CPT/HCPCS: 59025; 59050; 82565; 82570; 84156; 84450; 84460; 84550; 85025; 86780; 86850; 86900; 86901; 99221; A4216; G0378